=== PATIENT | female | born 1955 | race Caucasian/White ===

== ENCOUNTER 2021-12-03 14:45 | Inpatient (IN) ==
[2021-12-03] MEDS ORDERED: LORazepam 2 MG in SYRINGE 1 ML IV PRN (15:40)
[2021-12-03] MEDS ORDERED: LORazepam 3 MG in SYRINGE 1.5 ML IV PRN (15:40)
[2021-12-03] MEDS ORDERED: LORazepam 1 MG in SYRINGE 0.5 ML IV PRN (15:40)
[2021-12-03] MEDS ORDERED: Ativan IV Alcohol Withdrawal--Active Protocol IV PRN (15:40)
[2021-12-03] MEDS ORDERED: MULTI-VITAMIN INFUSION 10 ML, THIAMINE HCL 100 MG, FOLIC ACID 1 MG in SODIUM CHLORIDE 0... IV ONE (15:42)
[2021-12-03] MEDS ORDERED: THIAMINE HCL 200 MG in SODIUM CHLORIDE 0.9% 50 ML IV STA (15:42)
--- NOTE | 2021-12-03 15:54 | XRay Report ---
XR chest 1V portable HISTORY: 66 years-old Female weakness acute left-sided shoulder and chest pain COMPARISON: Left shoulder radiographs 09/16/2021 TECHNIQUE: Portable AP view of the chest FINDINGS: Cardiac mediastinal and hilar silhouettes are within normal limits. No pneumothorax, pleural effusion , airspace consolidation or overt pulmonary edema. Degenerative changes of the shoulders and spine. IMPRESSION: No acute process. ACT 112: Negative or not required by law. The above report was generated using voice recognition software. It may contain grammatical, syntax o r spelling errors. Electronically signed by: Donald Roberson M.D. 12/03/2021 3:53 PM
--- NOTE | 2021-12-03 16:30 | History & Physical Report ---
Date of Service December 03, 2021 Assessment & Plan (1) Alcohol withdrawal: Plan: Last drink on morning of admission. Ethyl alcohol < 10 mg/dL Prior history of alcohol withdrawal seizures Lorazepam 1-3 mg IV per AWSS Thiamine 200mg IV daily folate 1mg PO daily (2) Hypertension: Plan: Will hold off amlodipine as not clear she is taking this. Monitor BP off meds (3) Anxiety: Plan: Suspect chronic from alcohol use and likely self medicating with alcohol Recently on paroxetine but ran out last week therefore some worsening anxiety likely from withdrawal Consider psych consult once stable from alcohol withdrawal stand point to consider re-introduction of SSRI/buspirone Plan VTE Prophylaxis - Lovenox 40mg SQ daily Diet - regular Disposition - admit to PCU (due to early stages of alcohol withdrawal and history of alcohol withdrawal seizures) Admission and Anticipated Discharge Date Admission Date: December 03, 2021 History of Present Illness Chief Complaint: Alcohol withdrawal Primary Care Provider: Domingo Alberto Ofe Hinkle is a 66 year old female who presents to the ER with concerns for alcohol withdrawal. She is in the ER with her father, however the patient provides the majority of the history. She reports drinking 9 beers a day but feels her anxiety and drinking has now got to a point she needs help. She has a long history of alcohol use disorder over decades. Previously been in inpatient rehabilitation twice in [place].Multiple previous hospitalizations for alcohol withdrawal but has also gone through it herself at home. Most recent alcohol withdrawal was in hospital at the end of February. Previous alcohol withdrawal seizures in 2020. Her last year and she moved from [place] back to [place] in April this year to be closer to the rest of her family. She has struggled with increased depression and anxiety since the of her . She has been going to [facility] for psychiatric care and most recently started on paroxetine. She reports not telling her psychiatrist about her alcohol use. She ran out of paroxetine a week ago and has noticed sudden worsening of anxiety since then. She is taking buspirone and hydroxyzine for anxiety and notes taking more than her prescribed twice a day. Her last alcoholic drink was this morning and she already feels she is going through alcohol withdrawal. She is having tremors, increased anxiety, agitation, diaphoresis and diarrhea. Objectively she has hypertension and tachycardia. She denies any confusion, palpitations or fever. In the ER she was given 3mg lorazepam IV and referred to medicine for admission and ongoing management of alcohol withdrawal. Home Medications Medication Instructions Recorded Confirmed Type amlodipine 10 mg tablet 10 mg PO QAM 12/03/21 12/03/21 History buspirone 15 mg tablet 15 mg PO BID 12/03/21 12/03/21 History hydroxyzine HCl 25 mg tablet 25 mg PO BID 12/03/21 12/03/21 History paroxetine HCl 20 mg tablet 20 mg PO HS 12/03/21 12/03/21 History Past Med/Surg History Medical History (Updated 12/03/21 @ 18:12 by Nakul Horner MD) Anxiety Hypertension Social History Smoking Status: Current every day smoker Tobacco Type: Cigarettes Cigarettes Per Day: 5-6; Tobacco Cessation Education Requested by Patient: No Hx Alcohol Use: Yes Alcohol type: beer and wine Hx Substance Use: No Preferred Language: Occitan Communication Ability: Effective Forex Trader Required: No Beliefs That Will Affect Care: None Current Living Situation: Alone Other Information That Helps Us Care for You: No Feels Safe at Home: Yes Safety Concerns: Feels Safe At This Time Assistive Devices: Glasses Review of Systems Review of Systems: All systems reviewed & are unremarkable except as noted in HPI & below Physical Exam Constitutional: WD/WN, vitals as above + frail appearing Eyes: PERRL, conjunctivae normal, anicteric sclerae EOM intact bilaterally ENMT: Mouth: + dry oral mucous membranes Neck: trachea midline, no thyromegaly Respiratory: normal respiratory effort, lungs clear to auscultation Cardiovascular: Rate/Rhythm: regular rhythm and + tachycardic Heart Sounds: no murmur Extremities: normal capillary refill; no calf tenderness and no pedal edema Gastrointestinal (Abdomen): normal bowel sounds, soft, nontender, no hepatosplenomegaly Musculoskeletal: no cyanosis or clubbing, extremities motor strength 5/5 Skin: no rashes, warm and dry Neurologic: moves all extremities and awake; no focal motor deficits and not confused Motor/Sensory: + tremor (b/l) Psychiatric: Orientation: alert and oriented x 3 Affect: + anxious affect Mood: + anxious mood Results & Data Results & Data ([facility]) Vital Signs (Past 12 Hours) Vital Signs Temp Pulse Resp BP Pulse Ox O2 Del Method 12/03/21 14:58 36.8 C 137 H 18 153/90 H 98 Room Air Laboratory Results Abnormal lab results 12/03/21 12/03/21 12/03/21 Range/Units 16:00 17:45 17:50 RBC 3.92 L (3.93-5.22) M/uL MPV 8.7 L (9.4-12.3) fL Immature Gran # (Auto) 0.03 H (0.00-0.02) K/uL Anion Gap 13 H (3-11) Glucose 116 H (70-99(Fasting)) mg/dl Urine Appearance Cloudy A (Clear) Urine Ketones 1+ H (Negative) Ur Leukocyte Esterase 1+ H (Negative) Urine WBC (Auto) 5-10 H (0-5) /hpf U Hyaline Cast (Auto) 5-10 H (0-5) /lpf U Epithel Cells (Auto) >30 H (0-5) /lpf Diagnostic Findings XR chest 1V portable HISTORY: 66 years-old Female weakness acute left-sided shoulder and chest pain COMPARISON: Left shoulder radiographs 09/16/2021 TECHNIQUE: Portable AP view of the chest FINDINGS: Cardiac mediastinal and hilar silhouettes are within normal limits. No pn eumothorax, pleural effusion, airspace consolidation or overt pulmonary edema. Degenerative changes of the shoulders and spine. IMPRESSION: No acute process. Medications Administered ER Medications Given: Banana bag 1L bolus Lorazepam 3mg IV Thiamine 200mg IV ECG Indication: altered mental status Rate (beats per minute): 104 Rhythm: sinus tachycardia Findings: + PVC Comparison ECG Date: no prior available Code Status & VTE Plan Code Status Full VTE Prophylaxis Plan VTE Prophylaxis will be ordered: Yes PG Care Time/CCT Total # of Minutes Spent Total Time Spent with Patient: Total time spent is greater than 50% in coordination of care (as documented) at patient's floor/unit and/or counseling patient: Coding Level of Care Code 07300 Initial Inpt Care Lvl 3 Diagnoses Alcohol withdrawal F10.939 Hypertension I10 Anxiety F41.9
[2021-12-03 16:33] LABS: Prothrombin Time 10.3 Seconds (9.0-12.0)
[2021-12-03 16:42] LABS: Albumin Globulin Ratio 1.5 (0.9-2); Albumin Level 4.5 gm/dl (3.4-5.0); BUN Creatinine Ratio 14.8 (10-20); Bilirubin,Total 0.5 mg/dl (0.2-1.0); Calcium 9.9 mg/dl (8.5-10.1); Creatinine Clr Calc Pharmacy 52.4 ml/min; Est GFR (African American) 79.9 ml/min; Est GFR (Non-African American) 68.9 ml/min; Globulin 3.1 gm/dl (2.5-4.0); Magnesium 1.7 mg/dl (1.7-2.4); Phosphorus 2.8 mg/dl (2.5-4.9); Potassium 3.6 mmol/L (3.5-5.1); Total Protein 7.6 gm/dl (6.0-8.3)
[2021-12-03] MEDS ORDERED: LORazepam 2 MG/2 ML SYR ONE (16:42)
[2021-12-03 18:28] LABS: Appearance Urine Cloudy (Clear); Bacteria Urine Automated Negative (Negative); Bilirubin Urine Negative (Negative); Blood Urine Negative (Negative); Color Urine Yellow; Epithelial Cell Urine Auto >30 /lpf (0-5); Glucose Urine UA Negative (Negative); Ketones Urine 1+ (Negative); Leukocyte Esterase Urine 1+ (Negative); Nitrite Urine Negative (Negative); Protein Urine Negative (Negative); RBC Urine Automated 0-4 /hpf (0-4); Specific Gravity Urine 1.014 (1.000-1.030); Urobilinogen Urine Negative (Negative)
[2021-12-03] MEDS ORDERED: Ativan PO Alcohol Withdrawal--Active Protocol PO PRN (18:38)
[2021-12-03] MEDS ORDERED: THIAMINE HCL 100 MG in SYRINGE 9 ML IV SCH (18:38)
[2021-12-03] MEDS ORDERED: LORazepam 1 MG TAB PO PRN ×3 (18:38)
[2021-12-03 19:13] LABS: Basophils # (auto) 0.04 K/uL (0-0.2); Basophils % (auto) 0.5 %; Eosinophils # (auto) 0.11 K/uL (0-0.50); Eosinophils % (auto) 1.5 %; Hematocrit (blood only) 37.4 % (34.1-44.9); Hemoglobin 12.8 g/dl (12.0-16.0); Immature Granulocytes # (auto) 0.03 K/uL (0.00-0.02); Immature Granulocytes % (auto) 0.4 %; Lymphocytes # (auto) 1.72 K/uL (1.2-3.4); Lymphocytes % (auto) 23.2 %; Mean Corpuscular Hemoglobin 32.7 pg (25.0-34.0); Mean Corpuscular Hgb Conc 34.2 g/dL (32.0-36.0); Mean Corpuscular Volume 95.4 fL (80.0-100.0); Mean Platelet Volume 8.7 fL (9.4-12.3); Monocytes # (auto) 0.71 K/uL (0.24-0.82); Monocytes % (auto) 9.6 %; Neutrophils # (auto) 4.81 K/uL (1.4-6.5); Neutrophils % (auto) 64.8 %; Platelet Count 234 K/uL (130-400); RDW Coefficient of Variation 12.4 % (11.5-14.5); Red Blood Count 3.92 M/uL (3.93-5.22); White Blood Count 7.42 K/ul (4.8-10.8)
[2021-12-03] MEDS ORDERED: chlordiazePOXIDE ALCOHOL WITHDRAWL 25MG PO STA (21:04)
[2021-12-03] MEDS: chlordiazePOXIDE HCl 25 MG CAP PO SCH (21:53)
--- NOTE | 2021-12-04 03:07 | Emergency Department Note ---
Impression & Plan Alcohol withdrawal delirium, Sinus tachycardia, Alcohol dependence ED Provider Note NAME: SHEREE PAREKH AGE: 66 SEX: F ARRIVES VIA: Walk-In INFORMANT: Patient ED PROVIDER(S): Felix Bustillos MD CHIEF COMPLAINT: Alcohol withdrawal. PLAN: Disposition: Admit MEDICAL DECISION MAKING: The patient is a 66-year-old woman with a past medical history of anxiety, hypertension, alcohol dependence/abuse with history of withdrawal who presents to the emergency department accompanied by her father for evaluation of alcohol withdrawal with her last drink being this morning. She reports she drinks 9 beers a day and has abstained in the past but resumed drinking. She has realized that she needs to quit and therefore presents for detox. She denies SI, hallucinations, drug use. Denies any recent cough, congestion, chest pain or shortness of breath. On arrival the patient has restless/anxious appearing with heart rate in the 130s and vital signs otherwise stable. She appears clinically dry. She is moderately tremulous and diaphoretic consistent with alcohol withdrawal syndrome. EKG without overt acute ischemia. CXR negative for acute cardiopulmonary process. WBC, H/H and platelets within normal limits. Chemistry without metabolic acidosis. Electrolytes and LFTs without significant abnormality. TSH within normal limits. UA without convincing evidence of infection. Medical alcohol was undetectable. COVID-19 RNA, ASHLEY test was negative. Patient has been ordered for IV hydration with banana bag as well as thiamine supplementation and AWSS where she had scored 10+ and had received PRN IV ativan. Dr. Horner [facility] hospitalist to evaluate the patient for admission. Triage Nursing notes reviewed and agree them. Prior medical records reviewed Vital Signs: reviewed and remarkable for tachycardia. Differential diagnosis: Overdose, toxicologic, infection, hypoglycemia, electrolyte abnormalities, cardiac sources, intracerebral event, neurologic, trauma, as well as other pathologies. ER treatment provided: See below. Diagnostics interpreted by me: ECG: Sinus tachycardia, 104 bpm, occasional PVCs, no overt ST elevation or depression, QTC 473, QRS 84. Cardiac Monitoring: An order for continuous cardiac monitoring was placed and demonstrated Sinus tachycardia, 104 bpm, occasional PVCs Laboratory studies: See below Imaging studies: See below Consultation(s): JEANNETTE Balderas hospitalist. HPI: The patient is a 66-year-old woman with a past medical history of anxiety, hypertension, alcohol dependence/abuse with history of withdrawal who presents to the emergency department accompanied by her father for evaluation of alcohol withdrawal with her last drink being this morning. She reports she drinks 9 beers a day and has abstained in the past but resumed drinking. She has realized that she needs to quit and therefore presents for detox. She denies SI, hallucinations, drug use. Denies any recent cough, congestion, chest pain or shortness of breath. ROS: See above HPI for pertinent positives & negatives. A total of 10 systems reviewed and were otherwise negative. VITALS:See Below PHYSICAL EXAMINATION: GENERAL: Awake, alert, anxious/restless-appearing, in no distress HENT: Normocephalic, atraumatic. Oropharynx with dry mucous membranes and otherwise unremarkable. EYES: Normal conjunctiva. Sclera non-icteric. EOMI. No nystamgus. PEARRL. NECK: Supple. No nuchal rigidity. FROM. No JVD. RESPIRATORY: Clear to auscultation. CARDIAC: Tachycardic rate, normal rhythm. Extremities warm and well perfused. Pulses equal. ABDOMEN: Soft, non-distended. No tenderness to palpation. No rebound or guarding. No masses. RECTAL: Deferred. MUSCULOSKELETAL: Chest examination reveals no tenderness. The back is symmetrical on inspection without obvious abnormality. There is no CVA tenderness to palpation. No joint edema. LOWER EXTREMITIES: Calves are equal size bilaterally and non-tender. No edema. No discoloration. NEURO: No focal sensory or motor deficits noted. Moderately tremulous. 5/5 strength and SILT x 4 extremities. SKIN: Mildly diaphoretic. No rash or jaundice noted. ED COURSE: Critical Care: I have personally spent greater than 35 minutes of critical care time in the direct management of this patient. This includes bedside care, interpretation of diagnostic studies, and testing, discussion with consultants, patient, and fa fernando members, and other required patient management activities. This 35 minutes is in excess of all separately billable procedures. Felix Bustillos MD Past Med/Surg History Medical History Alcohol dependence Alcohol withdrawal Anxiety Hypertension Family History Other Family history non-contributory Social History Smoking Status: Current every day smoker Tobacco Type: Cigarettes Cigarettes Per Day: 5-6; Tobacco Cessation Education Requested by Patient: No Hx Alcohol Use: Yes Alcohol type: beer and wine Hx Substance Use: No Preferred Language: Hebrew Communication Ability: Effective Sealer Sander Required: No Beliefs That Will Affect Care: None Current Living Situation: Alone Other Information That Helps Us Care for You: No Feels Safe at Home: Yes Safety Concerns: Feels Safe At This Time Assistive Devices: Glasses Home Meds Home Medications Medication Instructions Recorded Confirmed amlodipine 10 mg tablet 10 mg PO QAM 12/03/21 12/03/21 buspirone 15 mg tablet 15 mg PO BID 12/03/21 12/03/21 hydroxyzine HCl 25 mg tablet 25 mg PO BID 12/03/21 12/03/21 paroxetine HCl 20 mg tablet 20 mg PO HS 12/03/21 12/03/21 Results & Data (ED) Vital Signs Vital Signs - 24 hr 12/03/21 14:58 12/03/21 15:13 12/03/21 16:00 Temperature 36.8 C Temperature Source Temporal Artery Scan Pulse Rate 137 H Pulse Rate from SpO2 Sensor Respiratory Rate 18 Blood Pressure 153/90 H 151/87 H Blood Pressure Mean 111 108 Pulse Oximetry 98 Oxygen Delivery Method Room Air Room Air Sepsis Recent Fever Within 48 Hours No Sepsis New/Unexplained Change in Mental Status No Sepsis Action Taken by Nursing No Action Required 12/03/21 16:01 12/03/21 16:15 12/03/21 16:15 Temperature Temperature Source Pulse Rate 106 H 106 H Pulse Rate from SpO2 Sensor 107 H 105 H Respiratory Rate 13 17 Blood Pressure 175/84 H Blood Pressure Mean 114 Pulse Oximetry 99 95 Oxygen Delivery Method Sepsis Recent Fever Within 48 Hours Sepsis New/Unexplained Change in Mental Status Sepsis Action Taken by Nursing 12/03/21 16:30 12/03/21 16:30 12/03/21 16:45 Temperature Temperature Source Pulse Rate 100 H Pulse Rate from SpO2 Sensor 100 H Respiratory Rate 17 Blood Pressure 154/76 H 165/85 H Blood Pressure Mean 102 111 Pulse Oximetry 97 Oxygen Delivery Method Sepsis Recent Fever Within 48 Hours Sepsis New/Unexplained Change in Mental Status Sepsis Action Taken by Nursing 12/03/21 16:45 12/03/21 17:00 12/03/21 17:00 Temperature Temperature Source Pulse Rate 115 H 105 H Pulse Rate from SpO2 Sensor 115 H 105 H Respiratory Rate 16 17 Blood Pressure 138/85 Blood Pressure Mean 102 Pulse Oximetry 98 98 Oxygen Delivery Method Sepsis Recent Fever Within 48 Hours Sepsis New/Unexplained Change in Mental Status Sepsis Action Taken by Nursing 12/03/21 16:30 12/03/21 17:15 12/03/21 17:15 Temperature 36.8 C Temperature Source Oral Pulse Rate 97 H Pulse Rate from SpO2 Sensor 98 H Respiratory Rate 24 Blood Pressure 141/72 H Blood Pressure Mean 95 Pulse Oximetry 96 Oxygen Delivery Method Sepsis Recent Fever Within 48 Hours Sepsis New/Unexplained Change in Mental Status Sepsis Action Taken by Nursing 12/03/21 16:45 12/03/21 17:00 Temperature 36.9 C 36.9 C Temperature Source Oral Oral Pulse Rate Pulse Rate from SpO2 Sensor Respiratory Rate Blood Pressure Blood Pressure Mean Pulse Oximetry Oxygen Delivery Method Sepsis Recent Fever Within 48 Hours Sepsis New/Unexplained Change in Mental Status Sepsis Action Taken by Nursing Laboratory Data Attestation: I reviewed the patient's lab results. Result diagrams: 12/03/21 17:45 12/03/21 16:00 Lab Results 12/03/21 12/03/21 12/03/21 Range/Units 16:00 16:00 16:00 WBC Cancelled RBC Cancelled Hgb Cancelled Hct Cancelled MCV Cancelled MCH Cancelled MCHC Cancelled RDW Std Deviation Cancelled RDW Coeff of Vignesh Cancelled Plt Count Cancelled MPV Cancelled Immature Gran % (Auto) Cancelled Neut % (Auto) Cancelled Lymph % (Auto) Cancelled Craig % (Auto) Cancelled Eos % (Auto) Cancelled Baso % (Auto) Cancelled Neut # (Auto) Cancelled Lymph # (Auto) Cancelled Craig # (Auto) Cancelled Eos # (Auto) Cancelled Baso # (Auto) Cancelled Immature Gran # (Auto) Cancelled Absolute Nucleated RBC Cancelled Nucleated RBC % (auto) Cancelled Neutrophils % (Manual) Cancelled Band Neutrophils % Cancelled Lymphocytes % (Manual) Cancelled Prolymphocyte % Cancelled Reactive Lymphs % (Man) Cancelled Monocytes % (Manual) Cancelled Eosinophils % (Manual) Cancelled Basophils % (Manual) Cancelled Metamyelocytes % (Man) Cancelled Myelocytes % (Man) Cancelled Promyelocytes % (Man) Cancelled Blast Cells % (Manual) Cancelled Plasma Cell % (Manual) Cancelled Other Cells % Cancelled Nucleated RBC % Cancelled Neutrophils # (Manual) Cancelled Band Neutrophils # Cancelled Total Absolute Neuts Cancelled Lymphocytes # (Manual) Cancelled Prolymphocyte # Cancelled Reactive Lymphs # Cancelled Total Abs Lymphocytes Cancelled Monocytes # (Manual) Cancelled Eosinophils # (Manual) Cancelled Basophils # (Manual) Cancelled Metamyelocytes # (Man) Cancelled Myelocytes # (Manual) Cancelled Promyelocytes # (Man) Cancelled Blast Cells # (Man) Cancelled Plasma Cell # (Manual) Cancelled Other Cells # Cancelled Nucleated RBCs # (Man) Cancelled Hypersegmented Neuts Cancelled Hyposegmented Neuts Cancelled Hypogranular Neuts Cancelled Large Granular Lymphs Cancelled # Lrg Granular Lymphs Cancelled Hairy Cells Cancelled Smudge Cells Cancelled Toxic Granulation Cancelled Toxic Vacuolation Cancelled Dohle Bodies Cancelled Karyn Rods Cancelled Platelet Estimate Cancelled Hypogranular Platelets Cancelled Clumped Platelets Cancelled Giant Platelets Cancelled Platelet Satelliting Cancelled RBC Morphology Cancelled Polychromasia Cancelled Hypochromasia Cancelled Poikilocytosis Cancelled Basophilic Stippling Cancelled Anisocytosis Cancelled Microcytosis Cancelled Macrocytosis Cancelled Spherocytes Cancelled Pappenheimer Bodies Cancelled Sickle Cells Cancelled Target Cells Cancelled Tear Drop Cells Cancelled Ovalocytes Cancelled Stomatocytes Cancelled Bailey-Macarthur Bodies Cancelled Echinocytes Cancelled Acanthocytes (Spur) Cancelled Rouleaux Cancelled RBC Agglutinates Cancelled Schistocytes Cancelled Sezary Cell Cancelled PT 10.3 (9.0-12.0) Seconds INR 1.0 (0.9-1.1) Sodium 137 (136-145) mmol/L Potassium 3.6 (3.5-5.1) mmol/L Chloride 99 (98-107) mmol/L Carbon Dioxide 25 (21-32) mmol/L Anion Gap 13 H (3-11) BUN 13 (6-23) mg/dl Creatinine 0.88 (0.6-1.2) mg/dl Est Cr Clr Drug Dosing 52.4 ml/min Est GFR ( Amer) 79.9 ml/min Est GFR (Non-Af Amer) 68.9 ml/min BUN/Creatinine Ratio 14.8 (10-20) Glucose 116 H (70-99(Fasting)) mg/dl Calcium 9.9 (8.5-10.1) mg/dl Phosphorus 2.8 (2.5-4.9) mg/dl Magnesium 1.7 (1.7-2.4) mg/dl Total Bilirubin 0.5 (0.2-1.0) mg/dl AST 24 (13-39) U/L ALT 15 (7-52) U/L Alkaline Phosphatase 95 (34-104) U/L Total Protein 7.6 (6.0-8.3) gm/dl Albumin 4.5 (3.4-5.0) gm/dl Globulin 3.1 (2.5-4.0) gm/dl Albumin/Globulin Ratio 1.5 (0.9-2) TSH (0.300-4.500) uIu/ml Ethyl Alcohol mg/dL (<10.0) mg/dl SARS-CoV-2, RNA, NAAT (NEGATIVE) Blood Parasites ID Cancelled 12/03/21 12/03/21 12/03/21 Range/Units 16:00 16:00 16:00 WBC RBC Hgb Hct MCV MCH MCHC RDW Std Deviation RDW Coeff of Vignesh Plt Count MPV Immature Gran % (Auto) Neut % (Auto) Lymph % (Auto) Craig % (Auto) Eos % (Auto) Baso % (Auto) Neut # (Auto) Lymph # (Auto) Craig # (Auto) Eos # (Auto) Baso # (Auto) Immature Gran # (Auto) Absolute Nucleated RBC Nucleated RBC % (auto) Neutrophils % (Manual) Band Neutrophils % Lymphocytes % (Manual) Prolymphocyte % Reactive Lymphs % (Man) Monocytes % (Manual) Eosinophils % (Manual) Basophils % (Manual) Metamyelocytes % (Man) Myelocytes % (Man) Promyelocytes % (Man) Blast Cells % (Manual) Plasma Cell % (Manual) Other Cells % Nucleated RBC % Neutrophils # (Manual) Band Neutrophils # Total Absolute Neuts Lymphocytes # (Manual) Prolymphocyte # Reactive Lymphs # Total Abs Lymphocytes Monocytes # (Manual) Eosinophils # (Manual) Basophils # (Manual) Metamyelocytes # (Man) Myelocytes # (Manual) Promyelocytes # (Man) Blast Cells # (Man) Plasma Cell # (Manual) Other Cells # Nucleated RBCs # (Man) Hypersegmented Neuts Hyposegmented Neuts Hypogranular Neuts Large Granular Lymphs # Lrg Granular Lymphs Hairy Cells Smudge Cells Toxic Granulation Toxic Vacuolation Dohle Bodies Karyn Rods Platelet Estimate Hypogranular Platelets Clumped Platelets Giant Platelets Platelet Satelliting RBC Morphology Polychromasia Hypochromasia Poikilocytosis Basophilic Stippling Anisocytosis Microcytosis Macrocytosis Spherocytes Pappenheimer Bodies Sickle Cells Target Cells Tear Drop Cells Ovalocytes Stomatocytes Bailey-Macarthur Bodies Echinocytes Acanthocytes (Spur) Rouleaux RBC Agglutinates Schistocytes Sezary Cell PT (9.0-12.0) Seconds INR (0.9-1.1) Sodium (136-145) mmol/L Potassium (3.5-5.1) mmol/L Chloride (98-107) mmol/L Carbon Dioxide (21-32) mmol/L Anion Gap (3-11) BUN (6-23) mg/dl Creatinine (0.6-1.2) mg/dl Est Cr Clr Drug Dosing ml/min Est GFR ( Amer) ml/min Est GFR (Non-Af Amer) ml/min BUN/Creatinine Ratio (10-20) Glucose (70-99(Fasting)) mg/dl Calcium (8.5-10.1) mg/dl Phosphorus (2.5-4.9) mg/dl Magnesium (1.7-2.4) mg/dl Total Bilirubin (0.2-1.0) mg/dl AST (13-39) U/L ALT (7-52) U/L Alkaline Phosphatase (34-104) U/L Total Protein (6.0-8.3) gm/dl Albumin (3.4-5.0) gm/dl Globulin (2.5-4.0) gm/dl Albumin/Globulin Ratio (0.9-2) TSH 2.275 (0.300-4.500) uIu/ml Ethyl Alcohol mg/dL < 10.0 (<10.0) mg/dl SARS-CoV-2, RNA, NAAT NEGATIVE (NEGATIVE) Blood Parasites ID Administered Medications Chlordiazepoxide HCl (Chlordiazepoxide Hcl 25 Mg Cap) 50 mg PO Q6H HUEY; Taper Stop: 12/05/21 21:14 Last Admin: 12/03/21 21:53 Dose: 50 mg Documented By: DAMEON Discontinued Medications Lorazepam 3 mg/ Syringe 3 mls @ 2 mls/min IV ONCE PRN; Protocol PRN Reason: EtOH Withdrawal AWSS Score 10 & above Last Admin: 12/03/21 16:45 Dose: 2 mls/min Documented By: ROBBY Multivitamins 10 ml/ Thiamine HCl 100 mg/ Folic Acid 1 mg/Sodium Chloride 1,011.2 mls @ 1,011.2 mls/hr IV .Q1H ONE Stop: 12/03/21 16:41 Last Infusion: 12/03/21 21:27 Dose: 0 mls/hr Documented By: Admin: 12/03/21 16:38 Dose: 1,011.2 mls/hr Documented By: ROBBY Thiamine HCl 200 mg/ Sodium (Chloride) 52 mls @ 208 mls/hr IV NOW STA Stop: 12/03/21 15:43 Last Infusion: 12/03/21 16:53 Dose: 0 mls/hr Documented By: Admin: 12/03/21 16:38 Dose: 208 mls/hr Documented By: ROBBY Lorazepam (Lorazepam 2 Mg/1 Ml Vial) Confirm Administered Dose 3 mg .ROUTE .STK- MED ONE Stop: 12/03/21 16:43 Last Admin: 12/03/21 17:32 Dose: Not Given Documented By: ROBBY Lorazepam (Lorazepam 1 Mg Tab) 3 mg PO ONCE PRN; Protocol PRN Reason: EtOH Withdrawal AWSS Score 10 & above Last Admin: 12/03/21 19:26 Dose: 3 mg Documented By: DAMEON Imaging Data Radiologist's Impression: Chest X-Ray 12/03/21 15:42 XR chest 1V portable HISTORY: 66 years-old Female weakness acute left-sided shoulder and chest pain COMPARISON: Left shoulder radiographs 09/16/2021 TECHNIQUE: Portable AP view of the chest FINDINGS: Cardiac mediastinal and hilar silhouettes are within normal limits. No pneumothorax, pleural effusion, airspace consolidation or overt pulmonary edema. Degenerative changes of the shoulders and spine. IMPRESSION: No acute process. ACT 112: Negative or not required by law. The above report was generated using voice recognition software. It may contain grammatical, syntax or spelling errors. Electronically signed by: Donald Roberson M.D. 12/03/2021 3:53 PM Discharge Plan Visit Data Chief Complaint: Alcohol Withdrawal Stated Complaint: DETOX ED Provider: Felix Bustillos Discharge Problem: Alcohol withdrawal delirium, Sinus tachycardia, Alcohol dependence Patient Disposition: Admitted As Inpatient Discharge Instructions Interventions: ED Discharge Assessment Last Done: 12/03/21 18:12
[2021-12-04] MEDS: chlordiazePOXIDE HCl 25 MG CAP PO SCH ×4 (03:10→23:07)
--- NOTE | 2021-12-04 08:13 | Electrocardiogram Report ---
Test Reason : Blood Pressure : / mmHG Vent. Rate : 104 BPM Atrial Rate : 104 BPM P-R Int : 122 ms QRS Dur : 084 ms QT Int : 360 ms P-R-T Axes : 073 039 045 degrees QTc Int : 473 ms Poor data quality, interpretation may be adversely affected Sinus tachycardia with occasional Premature ventricular complexes Left atrial enlargement Poor R wave progression, consider anterior AL vs. lead placement vs. LVH Abnormal ECG No previous ECGs available Confirmed by Ronan Villalta ([id number]) on 12/04/2021 8:12:46 AM Referred By: REFERRED SELF Confirmed By:Ronan Villalta
[2021-12-04] MEDS: THIAMINE HCL 200 MG in SODIUM CHLORIDE 0.9% 50 ML IV SCH (08:16)
[2021-12-04 09:47] LABS: Amphetamines+Metham, Urine Neg (Neg); Barbiturates, Urine Neg (Neg); Benzodiazepine, Urine Pos (Neg); Cocaine, Urine Neg (Neg); MDMA (Ecstacy), Urine Neg (Neg); Methadone, Urine Neg (Neg); Opiate, Urine Neg (Neg); Phencyclidine, Urine Neg (Neg)
[2021-12-04] MEDS ORDERED: Ativan IV Alcohol Withdrawal--Active Protocol IV PRN (11:59)
[2021-12-04] MEDS ORDERED: LORazepam 2 MG in SYRINGE 1 ML IV PRN (11:59)
[2021-12-04] MEDS ORDERED: LORazepam 3 MG in SYRINGE 1.5 ML IV PRN (11:59)
--- NOTE | 2021-12-04 12:56 | Medical Student Progress Note ---
Date of Service December 04, 2021 Assessment & Plan (1) Alcohol withdrawal: Plan Ofe is a 66 yo female with past medical hx of anxiety, depression, HTN & alcohol use disorder with a hx of alcohol withdrawal seizures who was admitted last night for alcohol detox. (1) Alcohol withdrawal -cont Librium 50mg q6 until tomorrow evening, then taper down to 10mg q8 -Ativan 1-3 mg IV prn, need to maintain IV access given hx of withdrawal seizures -Thiamine 200mg IV daily -Folate 1mg PO daily (2) HTN -holding amlodipine (in previous med record but unsure if she has been taking it) -monitor vitals while off med to assess need for reintroduction (3) Anxiety -Likely using alcohol as coping mechanisms for chronic anxiety -psych consult once alcohol withdrawal stable. Pt expressed interest in 1v1 grief counseling, suggested setting up with PCP after discharge. -consider reintroducing SSRI (paroxetine) and/or buspirone Normal diet. Full code. Lovenox 40mg SQ qd. PCU. Admission and Anticipated Discharge Date Admission Date: December 03, 2021 Subjective Ofe is a 66 yo female with past medical hx of anxiety, depression, HTN & alcohol use disorder with a hx of alcohol withdrawal seizures who was admitted last night for alcohol detox. Last drink was morning of 12/03. Reports drinking 9 beers/day. Pt reports having a long hx of alcohol use disorder over several decades. She has done inpatient rehab twice in [place] where she previously lived with her who last year. Anxiety/depression increased with loss of her , so she moved back to [place] to be closer to family. Pts last alcohol withdrawal was February 2021 (hospitalized) and she had seizures. Pt has been receiving psychiatric care at [facility], but has not admitted alcohol use to psychiatrist. For psychiatric meds, pt takes buspirone and hydroxyzine (pt admits to taking more t henriquez prescribed dose), as well as paroxetine which she ran out of last week. This caused increased anxiety. +tremors, anxiety, agitation, diaphoresis, diarrhea Denies confusion, palpitations, fevers In ED: CBC, CMP, TSH, UA, CXR, EKG done. Labs - overall unremarkable. CXR - no acute processes. EKG - sinus tachycardia and PVC but overall reassuring Review of Systems Review of Systems: All systems reviewed & are unremarkable except as noted in Subjective Physical Exam Constitutional: + in distress and + diaphoretic Eyes: EOM intact bilaterally and + nystagmus ENMT: moderately dry oral mucosa, cracked lips Neck: trachea midline, no thyromegaly Respiratory: normal respiratory effort, lungs clear to auscultation Cardiovascular: RRR, no murmur, no edema Gastrointestinal (Abdomen): normal bowel sounds, soft, nontender, no hepatosplenomegaly Musculoskeletal: no cyanosis or clubbing, extremities motor strength 5/5 Skin: No rashes Neurologic: A&Ox3 Results & Data ([facility]) Vital Signs (Past 12 Hours) Vital Signs Temp Pulse Pulse Pulse Resp BP Pulse Ox 12/04/21 12:16 36.6 C 94 H 19 138/67 98 12/04/21 08:00 95 H 12/04/21 08:07 36.5 C 89 18 130/54 L 93 12/04/21 03:07 36.6 C 78 17 124/64 100 O2 Del Method 12/04/21 12:16 Room Air 12/04/21 08:00 12/04/21 08:07 Room Air 12/04/21 03:07 Room Air
[2021-12-04] MEDS: PARoxetine HCL 10 MG TAB PO SCH (13:13)
[2021-12-04] MEDS: FOLIC ACID 1 MG TAB PO SCH (13:13)
--- NOTE | 2021-12-04 14:39 | Hospitalist Progress Note ---
Date of Service December 04, 2021 Assessment & Plan (1) Alcohol withdrawal: (2) Anxiety: (3) Hypertension: Plan Ofe is a 66 year old female with past medical history of anxiety, depression, alcohol dependence w/ hx of alcohol withdrawal seizures. Alcohol withdrawal/dependence: -Last drink morning of 12/03/21, drank 9 beers/day. -Alcohol level <10 on admission. -Prior history of alcohol w/drawal seizures, admitted to PCU. -Ordered Thiamine 200mg IV daily, Folate 1mg daily. -AWSS protocol, ativan 1-3mg; on Librium taper. -Continue to monitor for symptoms. Anxiety: -Patient in very anxious state since . -Sees [place] however may need adjustment. -Will continue paroxetine 20mg qHS -Patient will need close follow up outpatient and return to grief counseling. HTN: -BP WNL, no need for medication at this time. DVT Prophylaxis: SCDs F/E/N/GI: Regluar diet Code Status: Full code Dispo: PCU, upon discharge patient would benefit greatly from alcohol rehab, continued grief counseling, close follow up with psych and PCP. Admission and Anticipated Discharge Date Admission Date: December 03, 2021 Supervising Physician Co-Signing Physician Notes Resident Physician Supervision Note: I independently interviewed and examined the patient and verified the patton history and physical, reviewed labs and image studies and agree with resident findings and care plan. Subjective Patient seen at the bedside today saying that she feels very anxious. She has had tremors from the alcohol withdrawal and says that the tremors have improved overall but still present at times. She says her anxiety and depression as well as alcoholism got much worse after her . She says that she moved to [place] to be around her family and lives at the [facility]. She says people there are mostly 10-15 years older than her and they always pay close attention to who gets sent to the hospital in an ambulance and she is anxious about them talking about it. She helped a fellow resident in a wheelchair back in June and had a bout of shoulder pain as a result of it that she says has irritated her and caused pain ever since then. She saw Dr. Alberto in clinic for the pain where he prescribed Naproxen and physical therapy however she said that did not help very much with the pain. She said she wishes she would have gotten a steroid shot even when I explained to her the protocol and risks of steroids. She states the dose of her current paroxetine is very small compared to what she was previously on in [place] when she got out of the rehab for alcohol. She said at that time she was on a large dose of paxil - possibly around 80mg. She says she doesn't blame her psychiatrist for the way she feels since she thinks her medications are made less effective through her daily alcohol consumption. Review of Systems Review of Systems: as per hpi. Physical Exam Constitutional: WD/WN, vitals as above Eyes: PERRL, conjunctivae normal, anicteric sclerae Respiratory: normal respiratory effort, lungs clear to auscultation Cardiovascular: RRR, no murmur, no edema Gastrointestinal (Abdomen): normal bowel sounds, soft, nontender, no hepatosplenomegaly Psychiatric: Orientation: alert and oriented x 3 Apperance: appropriately groomed Eye Contact: good eye contact Motor Behavior: + tremor (mild) Affect: + tearful affect Mood: + anxious mood Suicidal Thoughts: denies suicidal thoughts Results & Data Results & Data ([facility]) Vital Signs (Past 12 Hours) Vital Signs Temp Pulse Pulse Pulse Resp BP Pulse Ox 12/04/21 12:16 36.6 C 94 H 19 138/67 98 12/04/21 08:00 95 H 12/04/21 08:07 36.5 C 89 18 130/54 L 93 12/04/21 03:07 36.6 C 78 17 124/64 100 O2 Del Method 12/04/21 12:16 Room Air 12/04/21 08:00 12/04/21 08:07 Room Air 12/04/21 03:07 Room Air Resident Activity Tracking Resident Involvement: Resident Care Provided Care Provided: Adult Hospital Medicine
[2021-12-04] MEDS: LORazepam 1 MG in SYRINGE 0.5 ML IV PRN ×3 (16:04→20:39)
[2021-12-04] MEDS: NICOTINE 21 MG/24 HR TDSY TD SCH (20:28)
[2021-12-05 06:30] LABS: Basophils # (auto) 0.03 K/uL (0-0.2); Basophils % (auto) 0.7 %; Eosinophils # (auto) 0.14 K/uL (0-0.50); Eosinophils % (auto) 3.3 %; Hematocrit (blood only) 35.7 % (34.1-44.9); Hemoglobin 12.6 g/dl (12.0-16.0); Immature Granulocytes # (auto) 0.01 K/uL (0.00-0.02); Immature Granulocytes % (auto) 0.2 %; Lymphocytes # (auto) 1.61 K/uL (1.2-3.4); Lymphocytes % (auto) 38.5 %; Mean Corpuscular Hemoglobin 32.9 pg (25.0-34.0); Mean Corpuscular Hgb Conc 35.3 g/dL (32.0-36.0); Mean Corpuscular Volume 93.2 fL (80.0-100.0); Mean Platelet Volume 8.8 fL (9.4-12.3); Monocytes # (auto) 0.45 K/uL (0.24-0.82); Monocytes % (auto) 10.8 %; Neutrophils # (auto) 1.94 K/uL (1.4-6.5); Neutrophils % (auto) 46.5 %; Platelet Count 250 K/uL (130-400); RDW Coefficient of Variation 12.1 % (11.5-14.5); RDW Standard Deviation 41.8 fL (36.4-46.3); Red Blood Count 3.83 M/uL (3.93-5.22); White Blood Count 4.18 K/ul (4.8-10.8)
[2021-12-05] MEDS: chlordiazePOXIDE HCl 25 MG CAP PO SCH ×2 (06:44→12:26)
[2021-12-05 06:50] LABS: BUN Creatinine Ratio 22.6 (10-20); Calcium 8.8 mg/dl (8.5-10.1); Creatinine Clr Calc Pharmacy 74.8 ml/min; Est GFR (African American) 109.7 ml/min; Est GFR (Non-African American) 94.6 ml/min; Potassium 3.2 mmol/L (3.5-5.1)
[2021-12-05] MEDS: FOLIC ACID 1 MG TAB PO SCH (08:12)
[2021-12-05] MEDS: NICOTINE 21 MG/24 HR TDSY TD SCH (08:13)
[2021-12-05] MEDS: THIAMINE HCL 200 MG in SODIUM CHLORIDE 0.9% 50 ML IV SCH (08:15)
[2021-12-05] MEDS: Patient's ALLERGY Info needs ENTERED SCH (08:23)
[2021-12-05] MEDS ORDERED: POTASSIUM CHLORIDE CRTAB 20 MEQ TABCR PO STA (08:26)
--- NOTE | 2021-12-05 08:42 | Medical Student Progress Note ---
Date of Service December 05, 2021 Assessment & Plan (1) Alcohol withdrawal: Plan Ofe is a 66 yo female with past medical hx of anxiety, depression, HTN & alcohol use disorder with a hx of alcohol withdrawal seizures who is on Day 2 of admission for alcohol detox. (1) Alcohol withdrawal -cont Librium taper, 25mg q8 today -Following AWSS protocol, Ativan 1-3 mg IV prn, need to maintain IV access given hx of withdrawal seizures -Thiamine 200mg IV daily -Folate 1mg PO daily (2) HTN -previously took amlodipine, BPs have been WNL since admission, no need for med at this time -continue to monitor BP (3) Anxiety -Paroxetine 10mg qd @1200 -Pt reports being on high dose back in [place], so will likely be increasing this dose when appropriate -psych consult once alcohol withdrawal stable. Pt expressed interest in 1v1 grief counseling, suggested setting up with PCP after discharge. Normal diet. Full code. Lovenox 40mg SQ qd. PCU. Admission and Anticipated Discharge Date Admission Date: December 03, 2021 Aislinn Thakur is a 66 yo female with past medical hx of anxiety, depression, HTN & alcohol use disorder with a hx of alcohol withdrawal seizures who is on Day 2 of admission for alcohol detox. Physical Exam Constitutional: + in distress and + diaphoretic Eyes: EOM intact bilaterally and + nystagmus Neck: trachea midline, no thyromegaly Respiratory: normal respiratory effort, lungs clear to auscultation Cardiovascular: RRR, no murmur, no edema Gastrointestinal (Abdomen): normal bowel sounds, soft, nontender, no hepatosplenomegaly Musculoskeletal: no cyanosis or clubbing, extremities motor strength 5/5 Results & Data ([facility]) Vital Signs (Past 12 Hours) Vital Signs Temp Pulse Resp BP Pulse Ox O2 Del Method 12/05/21 06:42 36.7 C 89 18 140/81 95 Room Air 12/05/21 04:03 36.6 C 85 20 142/78 H 98 Room Air 12/04/21 23:01 36.7 C 80 18 151/75 H 96 Room Air
[2021-12-05] MEDS: PARoxetine HCL 10 MG TAB PO SCH (12:27)
[2021-12-05] MEDS: ACETAMINOPHEN 325 MG TAB PO PRN (14:02)
--- NOTE | 2021-12-05 15:11 | Hospitalist Progress Note ---
Date of Service December 05, 2021 Assessment & Plan (1) Alcohol withdrawal: (2) Anxiety: (3) Hypertension: Plan Ofe is a 66 year old female with past medical history of anxiety, depression, alcohol dependence w/ hx of alcohol withdrawal seizures. Alcohol withdrawal/dependence: -Last drink morning of 12/03/21, drank 9 beers/day. -Alcohol level <10 on admission. -Prior history of alcohol w/drawal seizures, admitted to PCU. -Ordered Thiamine 200mg IV daily, Folate 1mg daily. -AWSS protocol, ativan 1-3mg; on Librium taper. -Continue to monitor for symptoms. Anxiety: -Patient in very anxious state since . -Sees [place] however may need adjustment. -Will continue paroxetine 20mg qHS -Patient will need close follow up outpatient and return to grief counseling. HTN: -BP WNL, no need for medication at this time. DVT Prophylaxis: SCDs F/E/N/GI: Regluar diet Code Status: Full code Dispo: PCU, upon discharge patient would benefit greatly from alcohol rehab, continued grief counseling, close follow up with psych and PCP. Admission and Anticipated Discharge Date Admission Date: December 03, 2021 Subjective Patient seen at the bedside this morning, resting in chair by the bed. Patient still anxious about the future course/disposition when leaving the hospital. Still with mild tremors at times, denies fevers, chills, shortness of breath. Review of Systems Review of Systems: as per hpi. Physical Exam Constitutional: WD/WN, vitals as above Eyes: PERRL, conjunctivae normal, anicteric sclerae Respiratory: normal respiratory effort, lungs clear to auscultation Cardiovascular: RRR, no murmur, no edema Gastrointestinal (Abdomen): normal bowel sounds, soft, nontender, no hepatosplenomegaly Psychiatric: Orientation: alert and oriented x 3 Apperance: appropriately groomed Eye Contact: good eye contact Motor Behavior: + tremor (mild) Affect: + tearful affect Mood: + anxious mood Suicidal Thoughts: denies suicidal thoughts Results & Data Results & Data ([facility]) Vital Signs (Past 12 Hours) Vital Signs Temp Pulse Resp BP Pulse Ox O2 Del Method 12/05/21 12:00 36.4 C L 103 H 18 123/66 99 Room Air 12/05/21 06:42 36.7 C 89 18 140/81 95 Room Air 12/05/21 04:03 36.6 C 85 20 142/78 H 98 Room Air Resident Activity Tracking Resident Involvement: Resident Care Provided Care Provided: Adult Hospital Medicine
[2021-12-05 16:32] LABS: 7-Aminoclonaz, Confirm NEGATIVE ng/mL (<25); Hydro-Alp Ur, GC/MS NEGATIVE ng/mL (<25); Hydroxyethylflurazepam, Conf NEGATIVE ng/mL (<50); Hydroxymidazolam Ur, GC/MS NEGATIVE ng/mL (<50); Hydroxytriazolam NEGATIVE ng/mL (<50); Lorazepam, Ur GC/MS 1400 ng/mL (<50); Nordiazepam, Confirm NEGATIVE ng/mL (<50); Oxazepam Ur, GC/MS NEGATIVE ng/mL (<50); Temazepam, Confirm NEGATIVE ng/mL (<50)
[2021-12-05] MEDS ORDERED: HYDROCODONE/ACETAMOPHEN 5/325MG TAB PO ONE (18:36)
[2021-12-05] MEDS: LORazepam 1 MG in SYRINGE 0.5 ML IV PRN (18:46)
[2021-12-05] MEDS: DICLOFENAC SOD 1% GEL 100 GM TUBE EXT SCH (20:57)
[2021-12-05] MEDS: GABAPENTIN 300 MG CAP PO SCH (21:04)
[2021-12-06 06:14] LABS: Basophils # (auto) 0.03 K/uL (0-0.2); Basophils % (auto) 0.7 %; Eosinophils % (auto) 2.4 %; Hematocrit (blood only) 36.7 % (34.1-44.9); Hemoglobin 12.8 g/dl (12.0-16.0); Immature Granulocytes # (auto) 0.03 K/uL (0.00-0.02); Immature Granulocytes % (auto) 0.7 %; Lymphocytes % (auto) 46.5 %; Mean Corpuscular Hemoglobin 33.3 pg (25.0-34.0); Mean Corpuscular Hgb Conc 34.9 g/dL (32.0-36.0); Mean Corpuscular Volume 95.6 fL (80.0-100.0); Mean Platelet Volume 8.8 fL (9.4-12.3); Monocytes # (auto) 0.45 K/uL (0.24-0.82); Neutrophils # (auto) 1.58 K/uL (1.4-6.5); Neutrophils % (auto) 38.7 %; Platelet Count 233 K/uL (130-400); RDW Coefficient of Variation 12.5 % (11.5-14.5); RDW Standard Deviation 44.2 fL (36.4-46.3); Red Blood Count 3.84 M/uL (3.93-5.22); White Blood Count 4.09 K/ul (4.8-10.8)
[2021-12-06 06:38] LABS: BUN Creatinine Ratio 26.3 (10-20); Calcium 9.1 mg/dl (8.5-10.1); Est GFR (African American) 95.4 ml/min; Est GFR (Non-African American) 82.3 ml/min; Potassium 3.6 mmol/L (3.5-5.1)
[2021-12-06] MEDS: FOLIC ACID 1 MG TAB PO SCH (07:58)
[2021-12-06] MEDS: GABAPENTIN 300 MG CAP PO SCH ×2 (07:58→20:40)
[2021-12-06] MEDS: NICOTINE 21 MG/24 HR TDSY TD SCH (07:58)
[2021-12-06] MEDS: DICLOFENAC SOD 1% GEL 100 GM TUBE EXT SCH ×4 (07:59→20:39)
[2021-12-06] MEDS: ACETAMINOPHEN 325 MG TAB PO PRN ×2 (08:06→16:32)
[2021-12-06] MEDS: THIAMINE HCL 100 MG TAB PO SCH (10:21)
--- NOTE | 2021-12-06 10:22 | Hospitalist Progress Note ---
Date of Service December 06, 2021 Assessment & Plan (1) Alcohol withdrawal: Plan: Ofe is a 66 year old female with past medical history of anxiety, depression, alcohol dependence w/ hx of alcohol withdrawal seizures. Alcohol withdrawal/dependence: -Last drink morning of 12/03/21, drank 9 beers/day. -Alcohol level <10 on admission. -Prior history of alcohol withdrawal seizures, admitted to PCU. -Cont. Thiamine 100mg daily, Folate 1mg daily. -AWSS protocol, ativan 1-3mg; on Librium taper. Tolerating gabapentin. Consider titrating up. -still very stressed and anxious about going back to drinking if she went home. will discuss naltrexone treatment in am. -Psych Liaison: [facility] can accept patient for counseling, pt will call Wednesday. Anxiety: -Patient in very anxious state since . -Sees [place]. -Tolerating addition of paroxetine 20mg qHS. -Tolerating addition of gabapentin. consider titrating up. -Patient will need close follow up outpatient and return to grief counseling. HTN: -BP WNL, no need for medication at this time. L shoulder pain, chronic -likely due to arthritis, improved today -cont. voltaren gel, tylenol. DVT Prophylaxis: SCDs F/E/N/GI: Regular Code Status: Full code Dispo: PCU, upon discharge patient would benefit greatly from alcohol rehab, continued grief counseling, close follow up with psych and PCP. anticipate d/c in next 24-48hrs (2) Anxiety: (3) Hypertension: Admission and Anticipated Discharge Date Admission Date: December 03, 2021 Supervising Physician Co-Signing Physician Notes Resident Physician Supervision Note: I independently interviewed and examined the patient and verified the patton history and physical, reviewed labs and image studies and agree with resident findings and care plan. Subjective Patient seen at bedside this morning. Still anxious but improved from yesterday. Left shoulder pain improved with better mobility. Tremors improving. Denies fevers, chills, shortness of breath, chest pain, headache. Amenable to going straight to [facility] if able. Review of Systems Review of Systems: All systems reviewed & are unremarkable except as noted in HPI & below Physical Exam Physical Exam: Constitutional: WD/WN, in no acute distress, pleasant, anxious. Vitals as above. HEENT: No scleral injection or discharge.Moist mucous membranes. Neck: Trachea midline. Lungs: Clear to auscultation bilaterally with good effort. Cardiac: RRR. No murmurs. Abdomen: +BS. Soft, nontender, and nondistended.No guarding or rebound tenderness. No hepatosplenomegaly. MSK: Bilateral UE full active ROM. Skin: No rashes, warm, dry. Neurologic: AOx3. No focal deficits. No clonus. PERRL. No tremor noted. Results & Data Results & Data ([facility]) Vital Signs (Past 12 Hours) Vital Signs Temp Pulse Pulse Resp BP Pulse Ox O2 Del Method 12/06/21 07:12 36.4 C L 81 18 122/70 96 Room Air 12/06/21 03:07 36.5 C 12/06/21 03:04 83 17 159/87 H 98 Room Air 12/06/21 00:09 98 H 12/05/21 22:57 36.6 C 92 H 20 139/82 97 Room Air Laboratory Results 12/06/21 12/06/21 12/04/21 Range/Units 05:34 05:34 08:45 WBC 4.09 L (4.8-10.8) K/ul RBC 3.84 L (3.93-5.22) M/uL Hgb 12.8 (12.0-16.0) g/dl Hct 36.7 (34.1-44.9) % MCV 95.6 (80.0-100.0) fL MCH 33.3 (25.0-34.0) pg MCHC 34.9 (32.0-36.0) g/dL RDW Std Deviation 44.2 (36.4-46.3) fL RDW Coeff of Vignesh 12.5 (11.5-14.5) % Plt Count 233 (130-400) K/uL MPV 8.8 L (9.4-12.3) fL Immature Gran % (Auto) 0.7 % Neut % (Auto) 38.7 % Lymph % (Auto) 46.5 % [place] % (Auto) 11.0 % Eos % (Auto) 2.4 % Baso % (Auto) 0.7 % Neut # (Auto) 1.58 (1.4-6.5) K/uL Lymph # (Auto) 1.90 (1.2-3.4) K/uL [place] # (Auto) 0.45 (0.24-0.82) K/uL Eos # (Auto) 0.10 (0-0.50) K/uL Baso # (Auto) 0.03 (0-0.2) K/uL Immature Gran # (Auto) 0.03 H (0.00-0.02) K/uL Sodium 138 (136-145) mmol/L Potassium 3.6 (3.5-5.1) mmol/L Chloride 107 (98-107) mmol/L Carbon Dioxide 26 (21-32) mmol/L Anion Gap 5 (3-11) BUN 20 (6-23) mg/dl Creatinine 0.76 (0.6-1.2) mg/dl Est Cr Clr Drug Dosing 61.0 ml/min Est GFR ( Amer) 95.4 ml/min Est GFR (Non-Af Amer) 82.3 ml/min BUN/Creatinine Ratio 26.3 H (10-20) Glucose 88 (70-99(Fasting)) mg/dl Calcium 9.1 (8.5-10.1) mg/dl U OH-Alprazolam Confrm NEGATIVE (<25) ng/mL 7-[place] Clonazepam NEGATIVE (<25) ng/mL Ur Nordiazepam Confirm NEGATIVE (<50) ng/mL U OH-ethylflurazepam NEGATIVE (<50) ng/mL U Lorazepam Cnf GC/MS 1400 H (<50) ng/mL U Oxazepam Confm GC/MS NEGATIVE (<50) ng/mL Ur Temazepam Confirm NEGATIVE (<50) ng/mL U OH-Triazolam Confirm NEGATIVE (<50) ng/mL U OH-Midazolam Confirm NEGATIVE (<50) ng/mL Drug Screen Comment SEE NOTE Resident Activity Tracking Resident Involvement: Resident Care Provided Care Provided: Adult Hospital Medicine
[2021-12-06] MEDS: PARoxetine HCL 10 MG TAB PO SCH (14:09)
[2021-12-06] MEDS: Patient's ALLERGY Info needs ENTERED SCH (16:24)
[2021-12-06] MEDS: LORazepam 1 MG in SYRINGE 0.5 ML IV PRN ×2 (16:35→20:43)
[2021-12-06] MEDS: chlordiazePOXIDE HCl 5 MG CAP PO SCH (20:39)
[2021-12-06] MEDS ORDERED: KETOROLAC TROMETHAMINE 15 MG/ML VIAL IV ONE (23:10)
--- NOTE | 2021-12-07 06:58 | Hospitalist Progress Note ---
Date of Service December 07, 2021 Assessment & Plan (1) Alcohol withdrawal: Plan: Ofe is a 66 year old female with past medical history of anxiety, depression, alcohol dependence w/ hx of alcohol withdrawal seizures. Alcohol withdrawal/dependence: -Last drink morning of 12/03/21, drank 9 beers/day. -Alcohol level <10 on admission. -Prior history of alcohol withdrawal seizures, admitted to PCU. -Cont. Thiamine 100mg daily, Folate 1mg daily. -AWSS protocol, ativan 1-3mg; Librium taper completed today. Tolerating gabapentin, inc. to 300mg TID. -Discussed starting naltrexone, pt amenable. Started naltrexone 50mg daily. will need to avoid narcotics while on it. GI side effects reviewed -Psych Liaison: [facility] can accept patient for outpatient counseling, pt will call Wednesday. -patient will be best served with inpatient rehab -Still very stressed and anxious about going back to drinking if she went home. Amenable to inpatient rehab which would be ideal for discharge. CM will offer resources in am. Anxiety: Significant paranoia -Patient in very anxious state since . -Sees [place]. -Tolerating addition of paroxetine 20mg qHS. -Tolerating addition of gabapentin, dose inc. as above -Patient will need close follow up outpatient and return to grief counseling. -Director Of Pulmonary Unit ordered per pt request HTN: -BP elevated in am -restarted home amlodipine L shoulder pain, chronic -likely due to arthritis, improved but still complains of posterior neck and L shoulder pain -ordered cervical/thoracic xrays for further evaluation -cont. voltaren gel, tylenol. -consider OMT in am DVT Prophylaxis: SCDs F/E/N/GI: Regular Code Status: Full code Dispo: PCU; ideally pt can go directly to inpatient rehab as I do not think she will do well at home, anticipate d/c in next 24-48hrs (2) Anxiety: (3) Hypertension: Admission and Anticipated Discharge Date Admission Date: December 03, 2021 Supervising Physician Co-Signing Physician Notes Resident Physician Supervision Note: I independently interviewed and examined the patient and verified the patton history and physical, reviewed labs and image studies and agree with resident findings and care plan. Subjective Patient seen at bedside this morning. >72 hours out from last drink. Still anxious but improved from yesterday. Left shoulder pain improved but still has some posterior neck/shoulder pain. Tremors improving. Denies fevers, chills, shortness of breath, chest pain, headache. Amenable to going inpatient rehab if possible. Review of Systems Review of Systems: All systems reviewed & are unremarkable except as noted in HPI & below Physical Exam Physical Exam: Constitutional: WD/WN, in no acute distress, pleasant, anxious. Vitals as above. HEENT: No scleral injection or discharge.Moist mucous membranes. Neck: Trachea midline. Lungs: Clear to auscultation bilaterally with good effort. Cardiac: RRR. No murmurs. Abdomen: +BS. Soft, nontender. Mildly distended.No guarding or rebound tenderness. No hepatosplenomegaly. MSK: Bilateral UE full active ROM. Skin: No rashes, warm, dry. Neurologic:AOx3. No focal deficits. No clonus. PERRL. No tremor noted. Results & Data Results & Data ([facility]) Vital Signs (Past 12 Hours) Vital Signs Temp Pulse Pulse Resp BP Pulse Ox O2 Del Method 12/07/21 04:25 36.3 C L 75 20 167/86 H 97 Room Air 12/07/21 00:40 93 H 12/06/21 23:53 36.4 C L 81 19 179/80 H 96 Room Air 12/06/21 20:32 36.9 C 92 H 21 149/82 H 95 Room Air Resident Activity Tracking Resident Involvement: Resident Care Provided Care Provided: Adult Hospital Medicine
[2021-12-07] MEDS: THIAMINE HCL 100 MG TAB PO SCH (08:23)
[2021-12-07] MEDS: FOLIC ACID 1 MG TAB PO SCH (08:23)
[2021-12-07] MEDS: GABAPENTIN 300 MG CAP PO SCH ×3 (08:23→20:10)
[2021-12-07] MEDS: NICOTINE 21 MG/24 HR TDSY TD SCH (08:23)
[2021-12-07] MEDS: DICLOFENAC SOD 1% GEL 100 GM TUBE EXT SCH ×4 (08:24→20:10)
[2021-12-07] MEDS: chlordiazePOXIDE HCl 5 MG CAP PO SCH (08:30)
[2021-12-07] MEDS: LORazepam 1 MG in SYRINGE 0.5 ML IV PRN ×2 (09:44→19:56)
[2021-12-07] MEDS: amLODIPine BESYLATE 5 MG TAB PO SCH (11:17)
[2021-12-07] MEDS: PARoxetine HCL 10 MG TAB PO SCH (12:09)
[2021-12-07] MEDS: NALTREXONE HCL 50 MG TAB PO SCH (14:25)
--- NOTE | 2021-12-07 18:54 | XRay Report ---
THORACIC SPINE 3 VIEWS CLINICAL HISTORY: Atraumatic thoracic back pain. FINDINGS: AP, lateral, and swimmer's views of the thoracic spine are obtained. No prior studies are a vailable for comparison at the time of dictation. The skeletal structures are osteopenic. There is no radiographic evidence of acute fracture or malalignment. Age indeterminant superior endplate william sachi deformities of T4 and T5 are likely chronic. There is corresponding hyperkyphosis. Vertebral bod y height is otherwise maintained throughout the thoracic spine. Alignment is preserved. The transvers e processes and pedicles are grossly intact as seen on the frontal view. The disc spaces are preserve d. The visualized lung parenchyma is grossly clear. IMPRESSION: 1. No acute bony abnormality is identified. 2. Mild superior endplate compression deformities in the upper thoracic region are likely chronic. Co rrelate for point tenderness. 3. Mild degenerative change and hyperkyphosis as above. Electronically signed by: Jhon Manuel M.D. 12/07/2021 6:53 PM
--- NOTE | 2021-12-07 18:54 | XRay Report ---
CERVICAL SPINE 3 VIEWS CLINICAL HISTORY: Cervicalgia. Shoulder pain. FINDINGS: AP, lateral, and odontoid views of the cervical spine are obtained. No prior studies are av ailable for comparison at the time of dictation. Skeletal structures are osteopenic. There is no radi ographic evidence of fracture or subluxation. The odontoid process and lateral masses appear intact o n the open mouth view. The atlantodental articulation is maintained noting mild productive degenerati ve change. Vertebral body height is maintained throughout the cervical spine. There is minimal charissa listhesis at C3-C4. Minimal retrolisthesis is noted at C5-C6. There is straightening of the cervical lordosis. Anterior osteophytes are seen throughout. The spinolaminar line is maintained. The spinous processes appear intact. Multilevel facet arthropathy is seen on the frontal view. There is moderate to severe disc space narrowing at C5-C6 and C6-C7. Moderate narrowing is noted at C4-C5. Posterior di sc osteophyte complexes at C4-C5, C5-C6, and C6-C7 may contribute to mild acquired compromise of the central canal. The prevertebral soft tissues are within normal limits. There is advanced atherosclero tic calcification of the carotid bulbs. Apical lung parenchyma is clear as imaged. IMPRESSION: 1. No acute bony abnormality is seen involving the cervical spine. 2. Osteopenia and spondylotic change as above. Dictated: 12/07/2021 5:48 PM Transcribed: 12/07/2021 6:01 PM [place] [id number] [email or web address] Electronically signed by: Jhon Manuel M.D. 12/07/2021 6:53 PM
--- NOTE | 2021-12-08 07:13 | Hospitalist Progress Note ---
Date of Service December 08, 2021 Assessment & Plan (1) Alcohol withdrawal: Plan: Ofe is a 66 year old female with past medical history of anxiety, depression, alcohol dependence w/ hx of alcohol withdrawal seizures. Alcohol withdrawal/dependence -Last drink morning of 12/03/21, drank 9 beers/day. -Alcohol level <10 on admission. -Prior history of alcohol withdrawal seizures, admitted to PCU. -Cont. Thiamine 100mg daily, Folate 1mg daily. -AWSS protocol, Ativan 1-3mg prn; Librium taper completed. Tolerating gabapentin, inc. to 300mg TID. -Discussed starting naltrexone, pt amenable. Started naltrexone 50mg daily. -Psych Liaison: [facility] can accept patient for outpatient counseling, pt will call Wednesday. -Still very stressed and anxious about going back to drinking if she went home. Amenable to inpatient rehab which would be ideal for discharge. Patient will call inpatient rehab facilities for bed placement. Will follow-up Anxiety -Patient in very anxious state since . -Sees [place]. -Tolerating addition of paroxetine 20mg qHS. -Tolerating addition of gabapentin, dose inc. as above -Patient will require close outpatient follow up outpatient and return to grief counseling. -Bench Assembler ordered per pt request HTN -BP elevated in am -restarted home amlodipine L shoulder pain, chronic -likely due to arthritis, improved but still complains of posterior neck and L shoulder pain -Cervical, thoracic x-rays negative for acute or subacute fracture (some osteopenic, degenerative changes noted). Possible cardiovascular etiology, given abnormal EKG, radiation of shoulder pain down left arm. * Consider repeat EKG at next incidence of shoulder pain. * cont. Voltaren gel, Tylenol. DVT Prophylaxis: SCDs F/E/N/GI: Regular Code Status: Full code Dispo: MedSurg; ideally pt can go directly to inpatient rehab as I do not think she will do well at home, anticipate d/c in next 24-48hrs (2) Anxiety: (3) Hypertension: Admission and Anticipated Discharge Date Admission Date: December 03, 2021 Supervising Physician Co-Signing Physician Notes I personally examined the patient and verified all patton points of history and exam, discussed case, and agree with decision making with Dr Pelaez Deciding whether or not she wants to go to inpatient rehab. Notes she still has high anxiety, notes that mostly she drinks to try to help with anxiety. Anxiety has been way worse over the last year to a year and a half, getting to where she is worried about "becoming a hermit" Vitals noted, in general she is in no physical distress but appears visibly anxious. HEENT normocephalic atraumatic mucous membranes moist. Breathing unlabored no accessory muscle use good effort. Skin shows no rashes no pallor or icterus. Neuro without focal deficits. Alcohol abuse/withdrawalappears to mostly now be symptomatic from anxiety more so than alcohol withdrawal. Suspect that she drinks mostly to self medicate for the anxiety, to which she concurs. Discussed benefits of an inpatient versus outpatient approach, at this point she feels she would probably prefer to go an inpatient approach. Discussed what I know about facilities in the area and sug gested that she start making phone calls today to try to help streamline the process. Discussed med management for anxiety, and that it generally is small benefit at best, and most improvement in anxiety will come with things such as social support, cognitive behavioral therapy, etc. Continue current med management, probably titrate up Paxil. otherwise as above Subjective No acute events overnight. Patient reports improved overall anxiety. However, she is very anxious this morning. She is worried about the possibility of her going home at this time as she feels that her anxiety is not managed well enough to deal with basic social situations right now. She is worried that she will return to alcohol to cope with her anxiety. Review of Systems Review of Systems: All systems reviewed & are unremarkable except as noted in HPI & below Physical Exam Physical Exam: General: Fearful-appearing, tremulous but alert, interactive, and in no acute distress. HEENT: Normocephalic, atraumatic. EOM intact. Good conjugate gaze. Nares patent. Moist mucosal membranes. Neck: Supple. No lymphadenopathy. Normal ROM. CV: Tachycardic to the 100s. Regular rhythm. Normal S1 and S2. No murmurs gallops or rubs. Respiratory: Normal respiratory effort. Lungs clear to auscultation bilaterally. No crackles, rhonchi, or wheezes. Abdomen: Soft, nondistended abdomen. No bruits heard on auscultation. No tenderness to deep palpation. Extremities: Capillary refill <2 sec. 2+ dp equal bilaterally. No pedal edema. Neuro: Alert and oriented x3. Skin: Clean, dry, and intact. No rashes, bruises, or erythema. Results & Data Results & Data ([facility]) Vital Signs (Past 12 Hours) Vital Signs Temp Pulse Pulse Resp BP Pulse Ox O2 Del Method 12/08/21 06:57 79 12/08/21 05:41 36.3 C L 95 H 21 161/91 H 98 Room Air 12/08/21 01:20 37 C 88 19 137/74 96 Room Air 12/08/21 02:53 36.7 C 83 18 131/76 98 Room Air 12/07/21 23:15 80 12/07/21 23:10 36.7 C 87 19 130/67 98 Room Air 12/07/21 21:24 36.5 C 87 20 137/63 98 Room Air 12/07/21 19:38 36.4 C L 103 H 22 122/75 96 Room Air Resident Activity Tracking Resident Involvement: Resident Care Provided Care Provided: Adult Hospital Medicine
[2021-12-08] MEDS: GABAPENTIN 300 MG CAP PO SCH ×4 (08:44→21:13)
[2021-12-08] MEDS: NALTREXONE HCL 50 MG TAB PO SCH (08:44)
[2021-12-08] MEDS: THIAMINE HCL 100 MG TAB PO SCH (08:44)
[2021-12-08] MEDS: FOLIC ACID 1 MG TAB PO SCH (08:44)
[2021-12-08] MEDS: amLODIPine BESYLATE 5 MG TAB PO SCH (08:45)
[2021-12-08] MEDS: NICOTINE 21 MG/24 HR TDSY TD SCH (08:45)
[2021-12-08] MEDS: DICLOFENAC SOD 1% GEL 100 GM TUBE EXT SCH ×4 (08:46→21:12)
[2021-12-08] MEDS: LORazepam 1 MG in SYRINGE 0.5 ML IV PRN ×3 (09:08→23:43)
[2021-12-08] MEDS: PARoxetine HCL 10 MG TAB PO SCH (12:04)
--- NOTE | 2021-12-08 18:21 | Billing Data ---
Date of Service December 08, 2021 Coding Level of Care Code 58046 Subseq Hosp Care Lvl 3
[2021-12-08] MEDS ORDERED: KETOROLAC TROMETHAMINE 15 MG/ML VIAL IV ONE (19:30)
[2021-12-09] MEDS: ACETAMINOPHEN 325 MG TAB PO PRN (07:32)
[2021-12-09] MEDS: GABAPENTIN 300 MG CAP PO SCH ×3 (09:11→20:41)
[2021-12-09] MEDS: amLODIPine BESYLATE 5 MG TAB PO SCH (09:11)
[2021-12-09] MEDS: THIAMINE HCL 100 MG TAB PO SCH (09:11)
[2021-12-09] MEDS: FOLIC ACID 1 MG TAB PO SCH (09:11)
[2021-12-09] MEDS: NICOTINE 21 MG/24 HR TDSY TD SCH (09:11)
[2021-12-09] MEDS: NALTREXONE HCL 50 MG TAB PO SCH (09:12)
[2021-12-09] MEDS: DICLOFENAC SOD 1% GEL 100 GM TUBE EXT SCH ×4 (09:12→20:40)
[2021-12-09] MEDS: busPIRone 15 MG TAB PO SCH ×2 (09:31→20:41)
[2021-12-09] MEDS ORDERED: PARoxetine HCL 20 MG TAB PO SCH (12:00)
--- NOTE | 2021-12-09 18:22 | Hospitalist Progress Note ---
Date of Service December 09, 2021 Assessment & Plan (1) Alcohol withdrawal: Plan: Ofe is a 66 year old female with past medical history of anxiety, depression, alcohol dependence w/ hx of alcohol withdrawal seizures. Alcohol withdrawal/dependence -Last drink morning of 12/03/21, drank 9 beers/day. -Alcohol level <10 on admission. -Prior history of alcohol withdrawal seizures, admitted to PCU. -Cont. Thiamine 100mg daily, Folate 1mg daily. -AWSS protocol. Librium taper completed. Tolerating gabapentin, inc. to 300mg TID. -Discussed starting naltrexone, pt amenable. Started naltrexone 50mg daily. -Psych Liaison: [facility], pt will call Wednesday. -Still very stressed and anxious about going back to drinking if she went home. Amenable to inpatient rehab which would be ideal for discharge. Patient will call inpatient rehab facilities for bed placement. Currently waiting for approval from 3 facilities. * Discontinued Ativan, phasing out AWSS protocol, as patient no longer in withdrawal. * Stopped paroxetine. Replaced with fluvoxamine 50 mg nightly. Will increase to 100 mg prior to discharge. Anxiety -Patient in very anxious state since . -Sees [place]. -Now on fluvoxamine 50 mg nightly. -Tolerating addition of gabapentin, dose inc. as above -Patient will require close outpatient follow up outpatient and return to grief counseling. -In Process Inspector ordered per pt request HTN -BP elevated in am -restarted home amlodipine L shoulder pain, chronic -likely due to arthritis, improved but still complains of posterior neck and L shoulder pain -Cervical, thoracic x-rays negative for acute or subacute fracture (some osteopenic, degenerative changes noted). Possible cardiovascular etiology, given abnormal EKG, radiation of shoulder pain down left arm. * Consider repeat EKG at next incidence of shoulder pain. * cont. Voltaren gel, Tylenol. DVT Prophylaxis: SCDs F/E/N/GI: Regular Code Status: Full code Dispo: MedSurg; ideally pt can go directly to inpatient rehab as I do not think she will do well at home. Currently awaiting approval. (2) Anxiety: (3) Hypertension: Admission and Anticipated Discharge Date Admission Date: December 03, 2021 Supervising Physician Co-Signing Physician Notes I personally examined the patient and verified all patton points of history and exam, discussed case, and agree with decision making with Dr Pelaez Has made several calls to go to inpatient rehab. Still awaiting on finalizing the process. More anxious today. Vitals noted, in general she is in no physical distress but appears visibly anxious. HEENT normocephalic atraumatic mucous membranes moist. Breathing unlabored no accessory muscle use good effort. Skin shows no rashes no pallor or icterus. Neuro without focal deficits. Alcohol abuse/withdrawalconsistently appearing to be symptomatic from anxiety more so than alcohol withdrawal at this point. Med management for anxiety, reemphasized social support, lifestyle, counseling tends to have more of a lasting and meaningful impact on the medications alone. Ongoing encouragement to go to inpatient rehab. otherwise as above Subjective No acute events overnight. Patient is awake and alert in bed this morning upon arrival. She reports improvement in her anxiety, though she still reports specific rumination about to her shoulder pain. Her appetite remains good. She had an Ativan overnight for anxiety, which she reports helped. She made calls to 5 inpatient rehab facilities yesterday, securing 3 promising leads. She plans to update her disease case manager, Johnna, and initiate the transfer of medical records. Review of Systems Review of Systems: All systems reviewed & are unremarkable except as noted in HPI & below Physical Exam Physical Exam: General: Fearful-appearing, tremulous but alert, interactive, and in no acute distress. HEENT: Normocephalic, atraumatic. EOM intact. Good conjugate gaze. Nares patent. Moist mucosal membranes. Neck: Supple. No lymphadenopathy. Normal ROM. CV: Regular rate and rhythm. Normal S1 and S2. No murmurs gallops or rubs. Respiratory: Normal respiratory effort. Lungs clear to auscultation bilaterally. No crackles, rhonchi, or wheezes. Abdomen: Soft, nondistended abdomen. No bruits heard on auscultation. No tenderness to deep palpation. Extremities: Capillary refill <2 sec. 2+ dp equal bilaterally. No pedal edema. Neuro: Alert and oriented x3. Skin: Clean, dry, and intact. No rashes, bruises, or erythema. Results & Data Results & Data ([facility]) Vital Signs (Past 12 Hours) Vital Signs Temp Pulse Resp BP Pulse Ox O2 Del Method 09/27/22 14:39 36.5 C 96 H 16 113/65 98 Room Air 12/09/21 11:11 36.6 C 89 16 114/66 97 Room Air 12/09/21 07:05 36.7 C 80 16 134/76 96 Room Air Resident Activity Tracking Resident Involvement: Resident Care Provided Care Provided: Adult Hospital Medicine
--- NOTE | 2021-12-09 18:35 | Billing Data ---
Date of Service December 09, 2021 Coding Level of Care Code 65465 Subseq Hosp Care Lvl 3
[2021-12-09] MEDS: diphenhydrAMINE Capsule 25 MG CAP PO PRN (20:40)
[2021-12-09] MEDS: DOCUSATE SODIUM 100 MG CAP PO SCH (20:40)
[2021-12-09] MEDS: fluvoxaMINE MALEATE 50 MG TAB PO SCH (20:41)
--- NOTE | 2021-12-09 22:51 | Electrocardiogram Report ---
Test Reason : Blood Pressure : / mmHG Vent. Rate : 090 BPM Atrial Rate : 090 BPM P-R Int : 130 ms QRS Dur : 084 ms QT Int : 368 ms P-R-T Axes : 072 053 058 degrees QTc Int : 450 ms Normal sinus rhythm Normal ECG When compared with ECG of 03-DEC-2021 16:17, Premature ventricular complexes are no longer Present Minimal criteria for Anterior infarct are no longer Present T wave amplitude has increased in Anterior leads Confirmed by Mundo Young ([id number]) on 12/09/2021 10:51:30 PM Referred By: REFERRED SELF Confirmed By:Mundo Young
[2021-12-10] MEDS: THIAMINE HCL 100 MG TAB PO SCH (09:12)
[2021-12-10] MEDS: GABAPENTIN 300 MG CAP PO SCH ×3 (09:12→20:36)
[2021-12-10] MEDS: NALTREXONE HCL 50 MG TAB PO SCH (09:12)
[2021-12-10] MEDS: NICOTINE 21 MG/24 HR TDSY TD SCH (09:12)
[2021-12-10] MEDS: busPIRone 15 MG TAB PO SCH ×2 (09:12→20:36)
[2021-12-10] MEDS: FOLIC ACID 1 MG TAB PO SCH (09:12)
[2021-12-10] MEDS: amLODIPine BESYLATE 5 MG TAB PO SCH (09:13)
[2021-12-10] MEDS: DICLOFENAC SOD 1% GEL 100 GM TUBE EXT SCH ×4 (09:13→20:34)
[2021-12-10] MEDS: DOCUSATE SODIUM 100 MG CAP PO SCH ×2 (09:13→20:36)
[2021-12-10] MEDS: ACETAMINOPHEN 325 MG TAB PO PRN (12:24)
--- NOTE | 2021-12-10 17:11 | Hospitalist Progress Note ---
Date of Service December 10, 2021 Assessment & Plan (1) Alcohol withdrawal: Plan: Ofe is a 66 year old female with past medical history of anxiety, depression, alcohol dependence w/ hx of alcohol withdrawal seizures. Alcohol withdrawal/dependence -Last drink morning of 12/03/21, drank 9 beers/day. -Alcohol level <10 on admission. -Prior history of alcohol withdrawal seizures, admitted to PCU. -Cont. Thiamine 100mg daily, Folate 1mg daily. -AWSS protocol. Librium taper completed. Tolerating gabapentin, inc. to 300mg TID. -Discussed starting naltrexone, pt amenable. Started naltrexone 50mg daily. -Psych Liaison: [facility] accept patient for outpatient counseling, pt will call Wednesday. -Still very stressed and anxious about going back to drinking if she went home. Amenable to inpatient rehab which would be ideal for discharge. Patient will call inpatient rehab facilities for bed placement. Currently waiting for approval from 3 facilities. -Per manager college: [facility] (inpatient rehab facility) can likely take her tomorrow, to be covered by [facility] as she is a Medicare patient. * Discontinued Ativan, phasing out AWSS protocol, as patient no longer in withdrawal. * Stopped paroxetine. Replaced with fluvoxamine 50 mg nightly. Will increase to 100 mg prior to discharge. Anxiety -Patient in very anxious state since . -Sees [place]. -Now on fluvoxamine 50 mg nightly. -Tolerating addition of gabapentin, dose inc. as above -Patient will require close outpatient follow up outpatient and return to grief counseling. -Utility Worker Forge ordered per pt request HTN -BP elevated in am -restarted home amlodipine L shoulder pain, chronic -likely due to arthritis, improved but still complains of posterior neck and L shoulder pain -Cervical, thoracic x-rays negative for acute or subacute fracture (some osteopenic, degenerative changes noted). Possible cardiovascular etiology, given abnormal EKG, radiation of shoulder pain down left arm. * Consider repeat EKG at next incidence of shoulder pain. * cont. Voltaren gel, Tylenol. DVT Prophylaxis: SCDs F/E/N/GI: Regular Code Status: Full code Dispo: MedSurg; awaiting transfer to inpatient rehab facility. (2) Anxiety: (3) Hypertension: Admission and Anticipated Discharge Date Admission Date: December 03, 2021 Supervising Physician Co-Signing Physician Notes I personally examined the patient and verified all patton points of history and exam, discussed case, and agree with decision making with Dr Benigno Moss doing a bit better. Feels like [facility] would be the best fit. Trying to finalize details. Vitals noted, in general she is in no physical distress but appears visibly anxious. HEENT normocephalic atraumatic mucous membranes moist. Breathing unlabored no accessory muscle use good effort. Skin shows no rashes no pallor or icterus. Neuro without focal deficits. Alcohol abuse/withdrawalreally appears to be out of any significant alcohol withdrawal. Now mostly anxiety and chronic alcohol dependence management. Safe/stable for rehabit sounds like this will probably be able to be facilitated quicklytherefore ideally would have patient go straight from the [facility] to [facility] rehab. otherwise as above Subjective No acute events overnight. Patient has no acute complaints. Anxiety appears markedly improved versus yesterday. She is in the process of reaching out to [facility], and is waiting to hear back from them about whether they have space to take her. Review of Systems Review of Systems: All systems reviewed & are unremarkable except as noted in HPI & below Physical Exam Physical Exam: General: Alert, oriented, interactive, and in no acute distress. HEENT: Normocephalic, atraumatic. EOM intact. Good conjugate gaze. Nares patent. Moist mucosal membranes. Neck: Supple. No lymphadenopathy. Normal ROM. CV: Regular rate and rhythm. Normal S1 and S2. No murmurs gallops or rubs. Respiratory: Normal respiratory effort. Lungs clear to auscultation bilaterally. No crackles, rhonchi, or wheezes. Abdomen: Soft, nondistended abdomen. No bruits heard on auscultation. No tenderness to deep palpation. Extremities: Capillary refill <2 sec. 2+ dp equal bilaterally. No pedal edema. Neuro: Alert and oriented x3. Skin: Clean, dry, and intact. No rashes, bruises, or erythema. Results & Data Results & Data ([facility]) Vital Signs (Past 12 Hours) Vital Signs Temp Pulse Resp BP Pulse Ox 12/10/21 15:26 36.8 C 87 16 135/75 95 12/10/21 07:26 36.7 C 85 16 130/72 93 Resident Activity Tracking Resident Involvement: Resident Care Provided Care Provided: Adult Hospital Medicine
--- NOTE | 2021-12-10 18:30 | Billing Data ---
Date of Service December 10, 2021 Coding Level of Care Code 08730 Subseq Hosp Care Lvl 3
[2021-12-10] MEDS: diphenhydrAMINE Capsule 25 MG CAP PO PRN (20:34)
[2021-12-10] MEDS: fluvoxaMINE MALEATE 50 MG TAB PO SCH (20:36)
[2021-12-11] MEDS: NICOTINE 21 MG/24 HR TDSY TD SCH (09:09)
[2021-12-11] MEDS: DOCUSATE SODIUM 100 MG CAP PO SCH ×2 (09:10→20:47)
[2021-12-11] MEDS: busPIRone 15 MG TAB PO SCH ×2 (09:10→20:48)
[2021-12-11] MEDS: THIAMINE HCL 100 MG TAB PO SCH (09:10)
[2021-12-11] MEDS: DICLOFENAC SOD 1% GEL 100 GM TUBE EXT SCH ×4 (09:10→20:48)
[2021-12-11] MEDS: amLODIPine BESYLATE 5 MG TAB PO SCH (09:10)
[2021-12-11] MEDS: FOLIC ACID 1 MG TAB PO SCH (09:10)
[2021-12-11] MEDS: GABAPENTIN 300 MG CAP PO SCH ×3 (09:10→20:48)
[2021-12-11] MEDS: NALTREXONE HCL 50 MG TAB PO SCH (09:10)
[2021-12-11] MEDS: ACETAMINOPHEN 325 MG TAB PO PRN ×3 (09:22→23:23)
--- NOTE | 2021-12-11 18:44 | Billing Data ---
Date of Service December 11, 2021 Coding Level of Care Code 35007 Subseq Hosp Care Lvl 2
--- NOTE | 2021-12-11 18:45 | Hospitalist Progress Note ---
Date of Service December 11, 2021 Assessment & Plan (1) Alcohol withdrawal: Plan: Ofe is a 66 year old female with past medical history of anxiety, depression, alcohol dependence w/ hx of alcohol withdrawal seizures. Alcohol withdrawal/dependence -Last drink morning of 12/03/21, drank 9 beers/day. -Alcohol level <10 on admission. -Prior history of alcohol withdrawal seizures, admitted to PCU. -Cont. Thiamine 100mg daily, Folate 1mg daily. -AWSS protocol. Librium taper completed. Tolerating gabapentin, inc. to 300mg TID. -Discussed starting naltrexone, pt amenable. Started naltrexone 50mg daily. -Psych Liaison: [facility] accept patient for outpatient counseling, pt will call Wednesday. -Still very stressed and anxious about going back to drinking if she went home. Amenable to inpatient rehab which would be ideal for discharge. Patient will call inpatient rehab facilities for bed placement. Currently waiting for approval from 3 facilities. -Per caser in: [facility] (inpatient rehab facility) can likely take her tomorrow, to be covered by [facility] as she is a Medicare patient. * Discontinued Ativan, phasing out AWSS protocol, as patient no longer in withdrawal. * Anxiety -Patient in very anxious state since . -Sees [place]. -Tolerating addition of gabapentin -Patient will require close outpatient follow up outpatient and return to grief counseling. -Antitank Assault Gunner ordered per pt request * Stopped paroxetine. Replaced with fluvoxamine 50 mg nightly. Patient tolerating well. Will continue at discharge. * Stopping gabapentin prior to discharge. HTN -BP elevated in am * Currently on home amlodipine L shoulder pain, chronic -likely due to arthritis, improved but still complains of posterior neck and L shoulder pain -Cervical, thoracic x-rays negative for acute or subacute fracture (some osteopenic, degenerative changes noted). Possible cardiovascular etiology, given abnormal EKG, radiation of shoulder pain down left arm. * Consider repeat EKG at next incidence of shoulder pain. * cont. Voltaren gel, Tylenol. DVT Prophylaxis: SCDs F/E/N/GI: Regular Code Status: Full code Dispo: MedSurg; awaiting transfer to inpatient rehab facility. (2) Anxiety: (3) Hypertension: Admission and Anticipated Discharge Date Admission Date: December 03, 2021 Supervising Physician Co-Signing Physician Notes I personally examined the patient and verified all patton points of history and exam, discussed case, and agree with decision making with Dr Pelaez Discussing [facility] rehab with case management. Anticipate being able to go t omorrow Vitals noted, in general she is in no physical distress but appears visibly anxious. HEENT normocephalic atraumatic mucous membranes moist. Breathing unlabored no accessory muscle use good effort. Skin shows no rashes no pallor or icterus. Neuro without focal deficits. Alcohol abuse/withdrawalnow is out of any significant alcohol withdrawal. mostly anxiety and chronic alcohol dependence management. Safe/stable for rehabplan is [facility] tomorrow. otherwise as above Subjective Patient is seated at bedside with . Dimsa Mer[facility] from [facility] upon entering this morning with her bags packed. She again appears improved from an anxiety standpoint. She has no acute concerns at this time. Review of Systems Review of Systems: All systems reviewed & are unremarkable except as noted in HPI & below Physical Exam Physical Exam: General: Alert, oriented, interactive, and in no acute distress. HEENT: Normocephalic, atraumatic. EOM intact. Good conjugate gaze. Nares patent. Moist mucosal membranes. Neck: Supple. No lymphadenopathy. Normal ROM. CV: Regular rate and rhythm. Normal S1 and S2. No murmurs gallops or rubs. Respiratory: Normal respiratory effort. Lungs clear to auscultation bilaterally. No crackles, rhonchi, or wheezes. Abdomen: Soft, nondistended abdomen. No bruits heard on auscultation. No tenderness to deep palpation. Extremities: Capillary refill <2 sec. 2+ dp equal bilaterally. No pedal edema. Neuro: Alert and oriented x3. Skin: Clean, dry, and intact. No rashes, bruises, or erythema. Results & Data Results & Data ([facility]) Vital Signs (Past 12 Hours) Vital Signs Temp Pulse Resp BP Pulse Ox 12/11/21 15:42 36.7 C 90 16 110/51 L 95 12/11/21 07:27 36.5 C 74 16 111/64 97 Resident Activity Tracking Resident Involvement: Resident Care Provided Care Provided: Adult [facility] Medicine
[2021-12-11] MEDS: fluvoxaMINE MALEATE 50 MG TAB PO SCH (20:48)
[2021-12-11] MEDS: diphenhydrAMINE Capsule 25 MG CAP PO PRN (23:25)
[2021-12-12] MEDS: ACETAMINOPHEN 325 MG TAB PO PRN ×2 (08:25→13:18)
[2021-12-12] MEDS: NICOTINE 21 MG/24 HR TDSY TD SCH (08:26)
[2021-12-12] MEDS: DICLOFENAC SOD 1% GEL 100 GM TUBE EXT SCH ×2 (08:26→13:18)
[2021-12-12] MEDS: NALTREXONE HCL 50 MG TAB PO SCH (08:27)
[2021-12-12] MEDS: amLODIPine BESYLATE 5 MG TAB PO SCH (08:27)
[2021-12-12] MEDS: DOCUSATE SODIUM 100 MG CAP PO SCH (08:27)
[2021-12-12] MEDS: THIAMINE HCL 100 MG TAB PO SCH (08:27)
[2021-12-12] MEDS: GABAPENTIN 300 MG CAP PO SCH (08:27)
[2021-12-12] MEDS: FOLIC ACID 1 MG TAB PO SCH (08:27)
[2021-12-12] MEDS: busPIRone 15 MG TAB PO SCH (08:27)
--- NOTE | 2021-12-12 11:59 | Discharge Summary ---
Date of Service December 12, 2021 Admission HPI Per Admitting Provider Ofe Hinkle is a 66 year old female who presents to the ER with concerns for alcohol withdrawal. She is in the ER with her father, however the patient provides the majority of the history. She reports drinking 9 beers a day but feels her anxiety and drinking has now got to a point she needs help. She has a long history of alcohol use disorder over decades. Previously been in inpatient rehabilitation twice in [place].Multiple previous hospitalizations for alcohol withdrawal but has also gone through it herself at home. Most recent alcohol withdrawal was in hospital at the end of February. Previous alcohol withdrawal seizures in 2020. Her last year and she moved from [place] back to [place] in April this year to be closer to the rest of her family. She has struggled with increased depression and anxiety since the of her . She has been going to [facility] for psychiatric care and most recently started on paroxetine. She reports not telling her psychiatrist about her alcohol use. She ran out of paroxetine a week ago and has noticed sudden worsening of anxiety since then. She is taking buspirone and hydroxyzine for anxiety and notes taking more than her prescribed twice a day. Her last alcoholic drink was this morning and she already feels she is going through alcohol withdrawal. She is having tremors, increased anxiety, agitation, diaphoresis and diarrhea. Objectively she has hypertension and tachycardia. She denies any confusion, palpitations or fever. In the ER she was given 3mg lorazepam IV and referred to medicine for admission and ongoing management of alcohol withdrawal. Admission Exam Per Admitting Provider Constitutional: WD/WN, vitals as above + frail appearing Eyes: PERRL, conjunctivae normal, anicteric sclerae EOM intact bilaterally ENMT: Mouth: + dry oral mucous membranes Neck: trachea midline, no thyromegaly Respiratory: normal respiratory effort, lungs clear to auscultation Cardiovascular: Rate/Rhythm: regular rhythm and + tachycardic Heart Sounds: no murmur Extremities: normal capillary refill; no calf tenderness and no pedal edema Gastrointestinal (Abdomen): normal bowel sounds, soft, nontender, no hepatosplenomegaly Musculoskeletal: no cyanosis or clubbing, extremities motor strength 5/5 Skin: no rashes, warm and dry Neurologic: moves all extremities and awake; no focal motor deficits and not confused Motor/Sensory: + tremor (b/l) Psychiatric: Orientation: alert and oriented x 3 Affect: + anxious affect Mood: + anxious mood Principal Diagnosis Alcohol withdrawal, anxiety, alcohol use disorder Discharge Exam General: Well-appearing, alert, interactive, and in no acute distress. HEENT: Normocephalic, atraumatic. EOM intact. Good conjugate gaze. Nares patent. Moist mucosal membranes. Neck: Supple. No lymphadenopathy. Normal ROM. CV: Regular rate and rhythm. Normal S1 and S2. No murmurs gallops or rubs. Respiratory: Normal respiratory effort. Lungs clear to auscultation bilaterally. No crackles, rhonchi, or wheezes. Abdomen: Soft, nondistended abdomen. No bruits heard on auscultation. No tenderness to deep palpation. Extremities: Capillary refill <2 sec. 2+ dp equal bilaterally. No pedal edema. Neuro: Alert and oriented x3. Skin: Clean, dry, and intact. No rashes, bruises, or erythema. Discharge Data Allergies Allergy/AdvReac Type Severity Reaction Status Date / Time No Known Allergies Allergy Unverified 12/05/21 08:23 Consultations 12/03/21 17:32 ED Decision to Admit Stat 12/04/21 15:31 Consult Behavioral Health Liaison Routine Hospital Course (1) Alcohol withdrawal: Ofe is a 66 year old female with past medical history of anxiety, depression, alcohol dependence w/ hx of alcohol withdrawal seizures. Alcohol withdrawal/dependence -Last drink morning of 12/03/21, drank 9 beers/day. -Alcohol level <10 on admission. -Prior history of alcohol withdrawal seizures, admitted to PCU. -Cont. Thiamine 100mg daily, Folate 1mg daily. -AWSS protocol. Librium taper completed. Tolerating gabapentin, inc. to 300mg TID. -Discussed starting naltrexone, pt amenable. Started naltrexone 50mg daily. -Psych Liaison: [facility] can accept patient for outpatient counseling, pt will call Wednesday. -Still very stressed and anxious about going back to drinking if she went home. Amenable to inpatient rehab which would be ideal for discharge. Patient will call inpatient rehab facilities for bed placement. Currently waiting for approval from 3 facilities. -Per dependency case manager: [facility] (inpatient rehab facility) can likely take her tomorrow, to be covered by [facility] as she is a Medicare patient. * Discontinued Ativan, phasing out AWSS protocol, as patient no longer in withdrawal. * Awaiting discharged. Made inpatient [facility] Anxiety -Patient in very anxious state since . -Sees [facility]. -Tolerating addition of gabapentin -Patient will require close outpatient follow up outpatient and return to grief counseling. -Carnival Worker ordered per pt request * Stopped paroxetine. Replaced with fluvoxamine 50 mg nightly. Patient tolerating well. Will continue at discharge. * Stopping gabapentin prior to discharge. HTN -BP elevated in am * Currently on home amlodipine L shoulder pain, chronic -likely due to arthritis, improved but still complains of posterior neck and L s houlder pain -Cervical, thoracic x-rays negative for acute or subacute fracture (some osteopenic, degenerative changes noted). Possible cardiovascular etiology, given abnormal EKG, radiation of shoulder pain down left arm. * Consider repeat EKG at next incidence of shoulder pain. * cont. Voltaren gel, Tylenol. DVT Prophylaxis: SCDs F/E/N/GI: Regular Code Status: Full code Dispo: MedSurg; awaiting transfer to inpatient rehab facility. (2) Anxiety: (3) Hypertension: Total Time Total Time Spent Total Time Spent (In Minutes): 60 Discharge Plan Discharge Items Patient Disposition: Transfer [facility] Reason For Visit: ALCOHOL WITHDRAWAL Discharge Diagnosis: Alcohol withdrawal, anxiety Activity: Per Instructions section Non-emergency contact: Primary Care Provider Call non-emergency contact if: you have any medication questions Follow-up/Referrals: Domingo Alberto [Primary Care Provider] - Diet: Regular Addtl Attending Provider Instructions: Ofe is a 66 year old female with past medical history of anxiety, depression, alcohol dependence w/ hx of alcohol withdrawal seizures. Alcohol withdrawal/dependence -Last drink morning of 12/03/21, drank 9 beers/day. -Alcohol level <10 on admission. -Prior history of alcohol withdrawal seizures, admitted to PCU. -Cont. Thiamine 100mg daily, Folate 1mg daily. -AWSS protocol. Librium taper completed. Tolerating gabapentin, inc. to 300mg TID. -Discussed starting naltrexone, pt amenable. Started naltrexone 50mg daily. -Psych Liaison: [facility] can accept patient for outpatient counseling, pt will call Wednesday. -Still very stressed and anxious about going back to drinking if she went home. Amenable to inpatient rehab which would be ideal for discharge. Patient will call inpatient rehab facilities for bed placement. Currently waiting for approval from 3 facilities. -Per dependency case manager: [facility] (inpatient rehab facility) can likely take her tomorrow, to be covered by [facility] as she is a Medicare patient. * Discontinued Ativan, phasing out AWSS protocol, as patient no longer in withdrawal. Patient tolerating Ativan wean well. * Stopped paroxetine. Replaced with fluvoxamine 50 mg nightly. Patient tolerating well 50 mg. Continue at discharge. Anxiety -Patient in very anxious state since . -Sees [facility]. -Now on fluvoxamine 50 mg nightly. -Tolerating addition of gabapentin, dose inc. as above -Patient will require close outpatient follow up outpatient and return to grief counseling. -Carnival Worker ordered per pt request HTN -BP elevated in am -restarted home amlodipine L shoulder pain, chronic -likely due to arthritis, improved but still complains of posterior neck and L shoulder pain -Cervical, thoracic x-rays negative for acute or subacute fracture (some osteopenic, degenerative changes noted). Possible cardiovascular etiology, given abnormal EKG, radiation of shoulder pain down left arm. * Continue Voltaren gel, Tylenol. Pending Studies at Discharge: No Stand-Alone Forms: My [facility] Medications and DC Order Prescriptions: New fluvoxamine 50 mg tablet 50 mg PO HS 30 Days Qty: 30 0RF naltrexone 50 mg tablet 50 mg PO DAILY 30 Days Qty: 30 0RF diclofenac sodium [Voltaren Arthritis Pain] 1 % gel 2 g topical QID Qty: 100 0RF Rx Instructions: apply to single elbow, wrist, shoulder, or hand; for hand includes palm/fingers/back of hand Continued amlodipine 10 mg tablet 10 mg PO QAM hydroxyzine HCl 25 mg tablet 25 mg PO BID buspirone 15 mg tablet 15 mg PO BID Discontinued paroxetine HCl 20 mg tablet 20 mg PO HS Rx Instructions: Not had for 1 week Discharge Orders: Discharge Order (Routine); Ordered 12/11/21 Ordered By: Sanjay Cantrell/Other Patient Handouts: Addiction Disease Understand Admission Data Admit Date/Time: 12/03/21 17:20 Attending Provider: Jesus Quintero Admit Provider: Nakul Horner Primary Care Provider: Domingo Alberto Other Providers: Tracey Jaffe ; Nakul Horner Other Interventions: Discharge Summary Assessment (RN) Last Done: 12/12/21 12:40 Supervising Physician Co-Signing Physician Notes I personally examined the patient and verified all patton points of history and exam, discussed case, and agree with decision making with Dr Pelaez For rehab today. Feels up to going. Vitals noted, in general she is in no physical distress but appears visibly anxious. HEENT normocephalic atraumatic mucous membranes moist. Breathing unlabored no accessory muscle use good effort. Skin shows no rashes no pallor or icterus. Neuro without focal deficits. Alcohol abuse/withdrawalnow is out of any significant alcohol withdrawal. mostly anxiety and chronic alcohol dependence management. Safe/stable for rehabplan is [facility] for [facility]hab, and then ongoing outpatient counseling/anxiety management. otherwise as above Resident Activity Tracking Resident Involvement: Resident Care Provided Care Provided: Adult Hospital Medicine
--- NOTE | 2021-12-12 18:37 | Billing Data ---
Date of Service December 12, 2021 Coding Level of Care Code D/C DAY MANAGEMENT <30 MINS
== END 2021-12-12 14:13 | DRG 897 ==
LOC: ED 14:45 → SUATTDRO 17:20 → 2E 17:20 → 3E 12-08 21:45

== ENCOUNTER 2022-05-06 12:23 | Inpatient (IN) ==
[2022-05-06] MEDS ORDERED: MULTI-VITAMIN INFUSION 10 ML, THIAMINE HCL 100 MG, FOLIC ACID 1 MG in SODIUM CHLORIDE 0... IV ONE (12:50)
[2022-05-06] MEDS ORDERED: SODIUM CHLORIDE 0.9% 500 ML IV SCH (13:00)
--- NOTE | 2022-05-06 13:13 | Emergency Department Note ---
Impression & Plan Alcohol withdrawal, Hypertension, History of seizure due to alcohol withdrawal ED Provider Note Provider: Amor Tomas MD DATE OF SERVICE: 05/06/2022 CHIEF COMPLAINT: Alcohol abuse/detox HISTORY OF PRESENT ILLNESS: Patient is a 67-year-old female history of alcohol withdrawal presenting here today reporting heavy alcohol use and requesting detox. Patient states that she has been drinking heavily for some time including last drink earlier today. Denies any significant trauma. Denies significant headache. Reports some diffuse myalgias. Denies any nausea or vomiting or significant chest pain. States she feels shaky at times. Patient states that she no longer wishes to live and wants to but cannot think of a way to end her life. Patient relays that she wants help stopping with drinking alcohol. Reports he has a history of seizures in the past but denies current hallucinations or seizures. Not eating much for the past week. Not taking home medications. Patient relays history of rehab in the past and is willing to go to rehab again today. PAST MEDICAL HISTORY: As noted above MEDICATIONS: Reviewed home medications but states not compliant. SOCIAL HISTORY: History of alcohol abuse, lives on her own PHYSICAL EXAM: GENERAL: alert and oriented in no acute distress on stretcher Head: normocephalic and atraumatic EYES: No injection, discharge or icterus. NECK: Trachea midline. Supple. ENT: Mucous membranes pink and moist. LUNGS: Airway patent. No retractions. Breath sounds clear with good air entry bilaterally. HEART: Regular tachycardic rate and rhythm. No chest wall tenderness ABDOMEN: Soft and non-tender, without guarding or rebound. SKIN: Acyanotic, warm, dry, without rashes EXTREMITIES: Without swelling, tenderness or deformity NEUROLOGICAL: No focal deficits. No aphasia. No facial droop or slurred speech. Normal strength and tone in the extremities. Sensation to gross touch normal. Psych: Flat affect endorses depression. States she does not want to be alive but denies any plan to actually harm herself. Denies wanting to harm others. Not acutely hallucinating responding to external stimuli. EK bpm normal sinus rhythm. No PVC or PAC. No acute ST segment elevation or depression with a QTc of 459. CONTINUOUS CARDIAC MONITORING: was ordered and showed a heart rate of 80s-120s bpm in normal sinus rhythm to sinus tachycardia Patient's laboratory studies and imaging reviewed. Differential includes alcohol intoxication/withdrawal, mood disorder, infection, hypoglycemia, electrolyte abnormalities, cardiac sources, intracerebral event, toxicologic, trauma, neurologic, as well as other pathologies. IMPRESSION/MEDICAL DECISION MAKING: Patient requesting detox from alcohol. Reports history of withdrawal seizure in the past. Not hallucinating currently. Recent alcohol use earlier today. Hypertensive upon arrival. Tachycardic as well. Given some Valium. Banana bag ordered. Basic blood work and electrolytes likely without severe abnormality. Negative Tylenol and aspirin level. Does report some thoughts of not wanting to be alive but not having an active plan or actively trying to kill herself at this point. Negative COVID. Is interested in alcohol rehab. No reports of significant trauma or signs of significant trauma will defer additional imaging at this point. Benign abdomen. Alcohol he minimally elevated. Significant hypertensive. States he has not been taking her home medications including her blood pressure medicine. Did discuss with case management. Does report some hopelessness and passive SI but no plan. Given her history of significant alcohol withdrawal with seizures will need medical observation before stablized and cleared for possible alcohol rehab options. DIAGNOSIS: Alcohol abuse, depression, hypertension DISPOSITION: Hospitalist will evaluate Patient was agreeable with this plan. Past Med/Surg History Medical History Alcohol dependence Alcohol withdrawal Anxiety Hypertension Family History Other Family history non-contributory Social History Smoking Status: Current every day smoker Tobacco Type: Cigarettes Cigarettes Per Day: 5-6; Hx Alcohol Use: Yes Alcohol type: beer and wine Hx Substance Use: Yes Preferred Language: [place] Islander Communication Ability: Effective Novelty Maker Required: No Beliefs That Will Affect Care: None marital status: / Current Living Situation: Alone Feels Safe at Home: Yes Assistive Devices: None Allergies Allergies Allergy/AdvReac Type Severity Reaction Status Date / Time No Known Allergies Allergy Unverified 12/05/21 08:23 Home Meds Home Medications Medication Instructions Recorded Confirmed buspirone 30 mg tablet 30 mg PO BID 05/06/22 05/06/22 hydroxyzine HCl 50 mg tablet 50 mg PO QID 05/06/22 05/06/22 mirtazapine 45 mg tablet 45 mg PO HS 05/06/22 05/06/22 naltrexone microspheres 380 mg 380 mg IM UD 05/06/22 05/06/22 intramuscular suspension,extended release (Vivitrol) paroxetine HCl 20 mg tablet 20 mg PO HS 05/06/22 05/06/22 Results & Data (ED) Vital Signs Vital Signs - 24 hr 05/06/22 12:25 05/06/22 13:08 05/06/22 13:56 Temperature 36.8 C Temperature Source Temporal Artery Scan Pulse Rate 120 H 108 H Pulse Rate from SpO2 Sensor Respiratory Rate 18 16 Respiratory Effort / Characteristics Non-Labored Spontaneous Respiratory Depth Normal Respiratory Pattern Regular Blood Pressure Blood Pressure Mean Pulse Oximetry 97 Oxygen Delivery Method Room Air Room Air Sepsis Recent Fever Within 48 Hours No Sepsis New/Unexplained Change in Mental Status No Sepsis Action Taken by Nursing No Action Required 05/06/22 13:00 05/06/22 13:00 05/06/22 13:15 Temperature Temperature Source Pulse Rate 98 H 103 H Pulse Rate from SpO2 Sensor 98 H Respiratory Rate 19 15 Respiratory Effort / Characteristics Respiratory Depth Respiratory Pattern Blood Pressure 187/91 H Blood Pressure Mean 123 Pulse Oximetry 95 Oxygen Delivery Method Sepsis Recent Fever Within 48 Hours Sepsis New/Unexplained Change in Mental Status Sepsis Action Taken by Nursing 05/06/22 13:30 05/06/22 13:30 05/06/22 13:45 Temperature Temperature Source Pulse Rate 104 H 97 H Pulse Rate from SpO2 Sensor Respiratory Rate 19 16 Respiratory Effort / Characteristics Respiratory Depth Respiratory Pattern Blood Pressure 184/91 H Blood Pressure Mean 122 Pulse Oximetry Oxygen Delivery Method Sepsis Recent Fever Within 48 Hours Sepsis New/Unexplained Change in Mental Status Sepsis Action Taken by Nursing 05/06/22 14:00 05/06/22 14:00 05/06/22 14:00 Temperature Temperature Source Pulse Rate 87 Pulse Rate from SpO2 Sensor Respiratory Rate 24 Respiratory Effort / Characteristics Respiratory Depth Respiratory Pattern Blood Pressure 142/74 H 142/74 H Blood Pressure Mean 96 96 Pulse Oximetry Oxygen Delivery Method Sepsis Recent Fever Within 48 Hours Sepsis New/Unexplained Change in Mental Status Sepsis Action Taken by Nursing 05/06/22 14:15 05/06/22 14:47 05/06/22 15:00 Temperature Temperature Source Pulse Rate 89 89 Pulse Rate from SpO2 Sensor 89 Respiratory Rate 17 19 Respiratory Effort / Characteristics Respiratory Depth Respiratory Pattern Blood Pressure 200/113 H Blood Pressure Mean 142 Pulse Oximetry 95 Oxygen Delivery Method Sepsis Recent Fever Within 48 Hours Sepsis New/Unexplained Change in Mental Status Sepsis Action Taken by Nursing 05/06/22 15:00 05/06/22 15:09 05/06/22 15:09 Temperature Temperature Source Pulse Rate 89 93 H Pulse Rate from SpO2 Sensor 88 94 H Respiratory Rate 21 15 Respiratory Effort / Characteristics Respiratory Depth Respiratory Pattern Blood Pressure 193/92 H Blood Pressure Mean 125 Pulse Oximetry 98 98 Oxygen Delivery Method Sepsis Recent Fever Within 48 Hours Sepsis New/Unexplained Change in Mental Status Sepsis Action Taken by Nursing 05/06/22 15:15 05/06/22 15:24 05/06/22 15:24 Temperature Temperature Source Pulse Rate 91 H 96 H Pulse Rate from SpO2 Sensor 92 H 95 H Respiratory Rate 19 22 Respiratory Effort / Characteristics Respiratory Depth Respiratory Pattern Blood Pressure 177/94 H Blood Pressure Mean 121 Pulse Oximetry 97 98 Oxygen Delivery Method Sepsis Recent Fever Within 48 Hours Sepsis New/Unexplained Change in Mental Status Sepsis Action Taken by Nursing 05/06/22 15:30 05/06/22 15:30 05/06/22 15:45 Temperature Temperature Source Pulse Rate 90 92 H Pulse Rate from SpO2 Sensor 91 H 91 H Respiratory Rate 20 17 Respiratory Effort / Characteristics Respiratory Depth Respiratory Pattern Blood Pressure 210/91 H Blood Pressure Mean 130 Pulse Oximetry 97 98 Oxygen Delivery Method Sepsis Recent Fever Within 48 Hours Sepsis New/Unexplained Change in Mental Status Sepsis Action Taken by Nursing 05/06/22 16:00 05/06/22 16:00 05/06/22 16:15 Temperature Temperature Source Pulse Rate 90 101 H Pulse Rate from SpO2 Sensor 92 H 100 H Respiratory Rate 18 25 H Respiratory Effort / Characteristics Respiratory Depth Respiratory Pattern Blood Pressure 182/89 H Blood Pressure Mean 120 Pulse Oximetry 97 95 Oxygen Delivery Method Sepsis Recent Fever Within 48 Hours Sepsis New/Unexplained Change in Mental Status Sepsis Action Taken by Nursing 05/06/22 16:30 05/06/22 16:30 05/06/22 16:45 Temperature Temperature Source Pulse Rate 97 H 101 H Pulse Rate from SpO2 Sensor 96 H 101 H Respiratory Rate 15 26 H Respiratory Effort / Characteristics Respiratory Depth Respiratory Pattern Blood Pressure 186/117 H Blood Pressure Mean 140 Pulse Oximetry 96 97 Oxygen Delivery Method Sepsis Recent Fever Within 48 Hours Sepsis New/Unexplained Change in Mental Status Sepsis Action Taken by Nursing 05/06/22 17:00 05/06/22 17:00 05/06/22 17:15 Temperature Temperature Source Pulse Rate 95 H 92 H Pulse Rate from SpO2 Sensor 94 H 92 H Respiratory Rate 17 16 Respiratory Effort / Characteristics Respiratory Depth Respiratory Pattern Blood Pressure 199/92 H Blood Pressure Mean 127 Pulse Oximetry 97 98 Oxygen Delivery Method Sepsis Recent Fever Within 48 Hours Sepsis New/Unexplained Change in Mental Status Sepsis Action Taken by Nursing 05/06/22 17:30 05/06/22 17:47 05/06/22 18:00 Temperature Temperature Source Pulse Rate 94 H 100 H 102 H Pulse Rate from SpO2 Sensor 107 H 100 H Respiratory Rate 19 23 23 Respiratory Effort / Characteristics Respiratory Depth Respiratory Pattern Blood Pressure Blood Pressure Mean Pulse Oximetry 86 L 97 Oxygen Delivery Method Sepsis Recent Fever Within 48 Hours Sepsis New/Unexplained Change in Mental Status Sepsis Action Taken by Nursing 05/06/22 18:11 05/06/22 18:11 Temperature Temperature Source Pulse Rate 93 H Pulse Rate from SpO2 Sensor 93 H Respiratory Rate 17 Respiratory Effort / Characteristics Respiratory Depth Respiratory Pattern Blood Pressure 207/93 H Blood Pressure Mean 131 Pulse Oximetry 96 Oxygen Delivery Method Sepsis Recent Fever Within 48 Hours Sepsis New/Unexplained Change in Mental Status Sepsis Action Taken by Nursing Laboratory Data 05/06/22 13:28 05/06/22 13:28 Lab Results 05/06/22 05/06/22 05/06/22 Range/Units 13:28 13:28 13:28 WBC 6.64 (4.8-10.8) K/ul RBC 4.55 (4.20-5.40) M/uL Hgb 13.9 (12.0-16.0) g/dl Hct 39.6 (37.0-47.0) % MCV 87.0 (80.0-100.0) fL MCH 30.5 (25.0-34.0) pg MCHC 35.1 (32.0-36.0) g/dL RDW Std Deviation 42.5 (36.4-46.3) fL RDW Coeff of Vignesh 13.3 (11.5-14.5) % Plt Count 241 (130-400) K/uL MPV 9.0 L (9.4-12.4) fL Immature Gran % (Auto) 0.3 % Neut % (Auto) 60.8 % Lymph % (Auto) 32.2 % [place] % (Auto) 6.2 % Eos % (Auto) 0.2 % Baso % (Auto) 0.3 % Neut # (Auto) 4.04 (1.40-6.50) K/uL Lymph # (Auto) 2.14 (1.2-3.4) K/uL [place] # (Auto) 0.41 (0.11-0.59) K/uL Eos # (Auto) 0.01 (0-0.50) K/uL Baso # (Auto) 0.02 (0-0.2) K/uL Immature Gran # (Auto) 0.02 (0.01-0.20) K/uL Sodium 137 (136-145) mmol/L Potassium 3.4 L (3.5-5.1) mmol/L Chloride 103 (98-107) mmol/L Carbon Dioxide 22 (21-32) mmol/L Anion Gap 12 H (3-11) BUN 7 (6-23) mg/dl Creatinine 0.60 (0.6-1.2) mg/dl Est Cr Clr Drug Dosing 76.3 ml/min Est GFR ( Amer) 110.1 ml/min Est GFR (Non-Af Amer) 95.0 ml/min BUN/Creatinine Ratio 11.7 (10-20) Glucose 85 (70-99(Fasting)) mg/dl Calcium 9.2 (8.5-10.1) mg/dl Magnesium 1.7 (1.7-2.4) mg/dl Total Bilirubin 0.4 (0.2-1.0) mg/dl AST 16 (13-39) U/L ALT 7 (7-52) U/L Alkaline Phosphatase 144 H (34-104) U/L Total Protein 7.6 (6.0-8.3) gm/dl Albumin 4.5 (3.4-5.0) gm/dl Globulin 3.1 (2.5-4.0) gm/dl Albumin/Globulin Ratio 1.5 (0.9-2) TSH 1.715 (0.300-4.500) uIu/ml Urine Color Urine Appearance (Clear) Urine pH (4.5-7.5) Ur Specific [place] (1.000-1.030) Urine Protein (Negative) Urine Glucose (UA) (Negative) Urine Ketones (Negative) Urine Blood (Negative) Urine Nitrite (Negative) Urine Bilirubin (Negative) Urine Urobilinogen (Negative) Ur Leukocyte Esterase (Negative) Salicylates (3.0-30) mg/dl Urine Opiates Screen (Neg) Ur Methadone, Qual (Neg) Acetaminophen (10-30) ug/ml Urine Barbiturates (Neg) Ur Phencyclidine (PCP) (Neg) U Amphetamin/Meth Scrn (Neg) MDMA (Ecstasy) Screen (Neg) U Benzodiazepines Scrn (Neg) Ur Cocaine Metabolite (Neg) U Marijuana (THC) Screen (Neg) Ethyl Alcohol mg/dL (<10.0) mg/dl SARS-CoV-2, RNA, NAAT (NEGATIVE) 05/06/22 05/06/22 05/06/22 Range/Units 13:28 13:28 14:26 WBC (4.8-10.8) K/ul RBC (4.20-5.40) M/uL Hgb (12.0-16.0) g/dl Hct (37.0-47.0) % MCV (80.0-100.0) fL MCH (25.0-34.0) pg MCHC (32.0-36.0) g/dL RDW Std Deviation (36.4-46.3) fL RDW Coeff of Vignesh (11.5-14.5) % Plt Count (130-400) K/uL MPV (9.4-12.4) fL Immature Gran % (Auto) % Neut % (Auto) % Lymph % (Auto) % [place] % (Auto) % Eos % (Auto) % Baso % (Auto) % Neut # (Auto) (1.40-6.50) K/uL Lymph # (Auto) (1.2-3.4) K/uL [place] # (Auto) (0.11-0.59) K/uL Eos # (Auto) (0-0.50) K/uL Baso # (Auto) (0-0.2) K/uL Immature Gran # (Auto) (0.01-0.20) K/uL Sodium (136-145) mmol/L Potassium (3.5-5.1) mmol/L Chloride (98-107) mmol/L Carbon Dioxide (21-32) mmol/L Anion Gap (3-11) BUN (6-23) mg/dl Creatinine (0.6-1.2) mg/dl Est Cr Clr Drug Dosing ml/min Est GFR ( Amer) ml/min Est GFR (Non-Af Amer) ml/min BUN/Creatinine Ratio (10-20) Glucose (70-99(Fasting)) mg/dl Calcium (8.5-10.1) mg/dl Magnesium (1.7-2.4) mg/dl Total Bilirubin (0.2-1.0) mg/dl AST (13-39) U/L ALT (7-52) U/L Alkaline Phosphatase (34-104) U/L Total Protein (6.0-8.3) gm/dl Albumin (3.4-5.0) gm/dl Globulin (2.5-4.0) gm/dl Albumin/Globulin Ratio (0.9-2) TSH (0.300-4.500) uIu/ml Urine Color Urine Appearance (Clear) Urine pH (4.5-7.5) Ur Specific [place] (1.000-1.030) Urine Protein (Negative) Urine Glucose (UA) (Negative) Urine Ketones (Negative) Urine Blood (Negative) Urine Nitrite (Negative) Urine Bilirubin (Negative) Urine Urobilinogen (Negative) Ur Leukocyte Esterase (Negative) Salicylates < 3.0 L (3.0-30) mg/dl Urine Opiates Screen (Neg) Ur Methadone, Qual (Neg) Acetaminophen < 3 L (10-30) ug/ml Urine Barbiturates (Neg) Ur Phencyclidine (PCP) (Neg) U Amphetamin/Meth Scrn (Neg) MDMA (Ecstasy) Screen (Neg) U Benzodiazepines Scrn (Neg) Ur Cocaine Metabolite (Neg) U Marijuana (THC) Screen (Neg) Ethyl Alcohol mg/dL 80.5 H (<10.0) mg/dl SARS-CoV-2, RNA, NAAT NEGATIVE (NEGATIVE) 05/06/22 05/06/22 Range/Units 14:47 14:47 WBC (4.8-10.8) K/ul RBC (4.20-5.40) M/uL Hgb (12.0-16.0) g/dl Hct (37.0-47.0) % MCV (80.0-100.0) fL MCH (25.0-34.0) pg MCHC (32.0-36.0) g/dL RDW Std Deviation (36.4-46.3) fL RDW Coeff of Vignesh (11.5-14.5) % Plt Count (130-400) K/uL MPV (9.4-12.4) fL Immature Gran % (Auto) % Neut % (Auto) % Lymph % (Auto) % [place] % (Auto) % Eos % (Auto) % Baso % (Auto) % Neut # (Auto) (1.40-6.50) K/uL Lymph # (Auto) (1.2-3.4) K/uL [place] # (Auto) (0.11-0.59) K/uL Eos # (Auto) (0-0.50) K/uL Baso # (Auto) (0-0.2) K/uL Immature Gran # (Auto) (0.01-0.20) K/uL Sodium (136-145) mmol/L Potassium (3.5-5.1) mmol/L Chloride (98-107) mmol/L Carbon Dioxide (21-32) mmol/L Anion Gap (3-11) BUN (6-23) mg/dl Creatinine (0.6-1.2) mg/dl Est Cr Clr Drug Dosing ml/min Est GFR ( Amer) ml/min Est GFR (Non-Af Amer) ml/min BUN/Creatinine Ratio (10-20) Glucose (70-99(Fasting)) mg/dl Calcium (8.5-10.1) mg/dl Magnesium (1.7-2.4) mg/dl Total Bilirubin (0.2-1.0) mg/dl AST (13-39) U/L ALT (7-52) U/L Alkaline Phosphatase (34-104) U/L Total Protein (6.0-8.3) gm/dl Albumin (3.4-5.0) gm/dl Globulin (2.5-4.0) gm/dl Albumin/Globulin Ratio (0.9-2) TSH (0.300-4.500) uIu/ml Urine Color Yellow Urine Appearance Clear (Clear) Urine pH 5.5 (4.5-7.5) Ur Specific [place] 1.004 (1.000-1.030) Urine Protein Negative (Negative) Urine Glucose (UA) Negative (Negative) Urine Ketones Negative (Negative) Urine Blood Negative (Negative) Urine Nitrite Negative (Negative) Urine Bilirubin Negative (Negative) Urine Urobilinogen Negative (Negative) Ur Leukocyte Esterase Negative (Negative) Salicylates (3.0-30) mg/dl Urine Opiates Screen Neg (Neg) Ur Methadone, Qual Neg (Neg) Acetaminophen (10-30) ug/ml Urine Barbiturates Neg (Neg) Ur Phencyclidine (PCP) Neg (Neg) U Amphetamin/Meth Scrn Neg (Neg) MDMA (Ecstasy) Screen Neg (Neg) U Benzodiazepines Scrn Neg (Neg) Ur Cocaine Metabolite Neg (Neg) U Marijuana (THC) Screen Neg (Neg) Ethyl Alcohol mg/dL (<10.0) mg/dl SARS-CoV-2, RNA, NAAT (NEGATIVE) Administered Medications Lactated Ringer's (Lr) 1,000 mls @ 100 mls/hr IV .Q10H HUEY Stop: 05/07/22 12:59 Last Admin: 05/06/22 18:10 Dose: 100 mls/hr Documented By: OL Potassium Chloride (K Raymundo / Wtr) 10 meq in 100 mls @ 100 mls/hr IV Q1H HUEY Stop: 05/06/22 20:29 Last Admin: 05/06/22 17:55 Dose: 100 mls/hr Documented By: OL Magnesium Sulfate/Dextrose (Magnesium Sulfate / D5w) 1 gm in 100 mls @ 50 mls/hr IV ONE ONE Stop: 05/06/22 19:21 Last Admin: 05/06/22 17:56 Dose: 50 mls/hr Documented By: OL Nicotine (Nicotine 21 Mg/24 Hr Tdsy) 21 mg TD QAM HUEY Stop: 06/05/22 16:59 Last Admin: 05/06/22 18:10 Dose: 21 mg Documented By: OL Discontinued Medications Diazepam (Diazepam 5 Mg/Ml Inj 10ml Vial) 5 mg IV NOW STA Stop: 05/06/22 12:51 Last Admin: 05/06/22 13:42 Dose: 5 mg Documented By: BCN Diazepam (Diazepam 5 Mg/Ml Inj 10ml Vial) 5 mg IV NOW STA Stop: 05/06/22 15:45 Last Admin: 05/06/22 16:08 Dose: 5 mg Documented By: DAMI Sodium Chloride (Nss) 500 mls @ 999 mls/hr IV .Q31M HUEY Stop: 05/06/22 13:30 Last Infusion: 05/06/22 14:17 Dose: 0 mls/hr Documented By: Admin: 05/06/22 13:31 Dose: 999 mls/hr Documented By: DAMI Multivitamins 10 ml/ Thiamine HCl 100 mg/ Folic Acid 1 mg/Sodium Chloride 1,011.2 mls @ 1,011.2 mls/hr IV .Q1H ONE Stop: 05/06/22 13:49 Last Infusion: 05/06/22 14:48 Dose: 0 mls/hr Documented By: Admin: 05/06/22 13:42 Dose: 1,011.2 mls/hr Documented By: DAMI Discharge Plan Visit Data Chief Complaint: Detox Request Stated Complaint: ALCOHOLIC NEEDS DETOX ED Provider: Amor Tomas Discharge Problem: Alcohol withdrawal, Hypertension, History of seizure due to alcohol withdrawal Patient Disposition: Being Evaluated by Hospitalist Forms Stand Alone Forms: [facility], Suicide Prevention Resources Prescriptions Prescriptions: No Action hydroxyzine HCl 50 mg tablet 50 mg PO QID paroxetine HCl 20 mg tablet 20 mg PO HS buspirone 30 mg tablet 30 mg PO BID mirtazapine 45 mg tablet 45 mg PO HS Vivitrol 380 mg suspension,extended rel recon 380 mg IM UD Referrals Referrals: Domingo Alberto [Primary Care Provider] -
[2022-05-06 14:02] LABS: Basophils # (auto) 0.02 K/uL (0-0.2); Basophils % (auto) 0.3 %; Eosinophils # (auto) 0.01 K/uL (0-0.50); Eosinophils % (auto) 0.2 %; Hematocrit (blood only) 39.6 % (37.0-47.0); Hemoglobin 13.9 g/dl (12.0-16.0); Immature Granulocytes # (auto) 0.02 K/uL (0.01-0.20); Immature Granulocytes % (auto) 0.3 %; Lymphocytes # (auto) 2.14 K/uL (1.2-3.4); Lymphocytes % (auto) 32.2 %; Mean Corpuscular Hemoglobin 30.5 pg (25.0-34.0); Mean Corpuscular Hgb Conc 35.1 g/dL (32.0-36.0); Monocytes # (auto) 0.41 K/uL (0.11-0.59); Monocytes % (auto) 6.2 %; Neutrophils # (auto) 4.04 K/uL (1.40-6.50); Neutrophils % (auto) 60.8 %; Platelet Count 241 K/uL (130-400); RDW Coefficient of Variation 13.3 % (11.5-14.5); RDW Standard Deviation 42.5 fL (36.4-46.3); Red Blood Count 4.55 M/uL (4.20-5.40); White Blood Count 6.64 K/ul (4.8-10.8)
[2022-05-06 14:14] LABS: Acetaminophen < 3 ug/ml (10-30); Salicylate < 3.0 mg/dl (3.0-30)
[2022-05-06 14:22] LABS: Albumin Globulin Ratio 1.5 (0.9-2); Albumin Level 4.5 gm/dl (3.4-5.0); BUN Creatinine Ratio 11.7 (10-20); Bilirubin,Total 0.4 mg/dl (0.2-1.0); Calcium 9.2 mg/dl (8.5-10.1); Creatinine Clr Calc Pharmacy 76.3 ml/min; Est GFR (African American) 110.1 ml/min; Globulin 3.1 gm/dl (2.5-4.0); Magnesium 1.7 mg/dl (1.7-2.4); Potassium 3.4 mmol/L (3.5-5.1); Total Protein 7.6 gm/dl (6.0-8.3)
[2022-05-06 15:14] LABS: Appearance Urine Clear (Clear); Bilirubin Urine Negative (Negative); Blood Urine Negative (Negative); Color Urine Yellow; Glucose Urine UA Negative (Negative); Ketones Urine Negative (Negative); Leukocyte Esterase Urine Negative (Negative); Nitrite Urine Negative (Negative); Protein Urine Negative (Negative); Specific Gravity Urine 1.004 (1.000-1.030); Urobilinogen Urine Negative (Negative); pH Urine 5.5 (4.5-7.5)
[2022-05-06 16:16] LABS: Amphetamines+Metham, Urine Neg (Neg); Barbiturates, Urine Neg (Neg); Benzodiazepine, Urine Neg (Neg); Cocaine, Urine Neg (Neg); MDMA (Ecstacy), Urine Neg (Neg); Methadone, Urine Neg (Neg); Opiate, Urine Neg (Neg); Phencyclidine, Urine Neg (Neg)
--- NOTE | 2022-05-06 16:36 | History & Physical Report ---
Date of Service May 06, 2022 Assessment & Plan (1) Alcohol withdrawal: Plan: -Admit to the PCU on tele -The patient is currently afebrile, Hypertensive at 182/89, and stable on RA -Patient appears to be going into active alcohol withdrawal despite her last drink being earlier today -She is high risk due to previous history of withdrawal seizures -S/P 10 mg of valium, a banana bag, and 1L NSS in the ED -Will start the active AWSS protocol with IV ativan and will start her on Librium now -Seizure precautions ordered -Will continue IV hydration with LR at 100 mL/hr x 2 bags -Will continue with IV thiamine 100 mg TID for 2 days, can then taper to oral and daily dosing -Continue daily PO folic acid -Patient is interested in rehab but does not want to go back to the same facility she was at in [place] last time -AM CBC, CMP, Mag -BL SCDS and Sub-Q lovenox for DVT PPX (2) Hypokalemia: Plan: -Noted to be 3.4 today -Likely due to her drinking and poor intake -Mag was low-normal at 1.7 -Will give 10 meq IV KCL x 3 bags and 1 mg IV mag on admission -Continue to monitor AM CMP and mag (3) Anxiety: Plan: -Patient appears to have significant anxiety at baseline which has not been well-controlled leading to her drinking -Will continue HS Paxil but will hold HS remeron for now to avoid over-sedation (4) Hypertension: Plan: -Currently hypertensive at 182/89 but asymptomatic -Not currently on outpatient antihypertensives -Likely due to her active alcohol withdrawal -Will re-evaluate after she Librium and ativan -Continue to monitor Plan The patient was discussed with Dr. Horner at the time of the admission History of Present Illness Chief Complaint: Alcohol withdrawal Primary Care Provider: Domingo Alberto Ofe is a 67 year old female with a PMH significant for current alcohol abuse, hx of previous withdrawal seizure, anxiety, tobacco abuse, HTN, and sinus tachycardia who presented to the [facility] ED on 05/06/22 with a chief complaint of alcohol withdrawal. In the ED the patient was found to be afebrile, hemodynamically stable, and stable on RA. Labs were remarkable for a CBC WNL, stable cr at 0.60, potassium of 3.4, otherwise stable electrolytes, alk phos of 144 otherwise stable LFTs, negative UA, alcohol level of 80, negative urine tox screen and negative covid screen. Prior to admission the patient was given a banana bag, 10 mg of Valium and 1L NSS. At the time of the exam the patient was resting in bed and appears anxious and mildly tremulous with her father sitting bedside. She states that she has very bad anxiety of which she is seen at [facility] in [place] but also uses alcohol to cope with her anxiety. She states that her drinking has gotten "out of hand" recently and she would like to try and stop drinking again. She has been drinking both beer and mixed drinks with Whiskey recently. Yesterday she had approximately 9 large cans of beer. Today she was drinking mixed drink with her last drink occurring at approximately 11 am today prior to coming into the hospital. She does have a previous history of seizures with withdrawals when she lived in [place]. She tried to go to rehab in [place] previously but she began drinking shortly after leaving. She is currently a smoker and smokes approximately 1 PPD. She feels as though her tremors and withdrawal symptoms are beginning to return after receiving another dose of Valium shortly before my exam. She has recently been using the HS Remeron and Paroxetine prescribed by her Psychiatrist and has not been using the hydroxyzine and buspar as she does not feel as though they have been working. She denies current fever, chills, he adache, changes in vision, hearing, taste, and smell, auditory, visual, or tactile hallucinations, chest pain, SOB, abd pain, nausea, vomiting, dysuria, hematuria, lower extremity swelling and recent trauma. We discussed code status, she wishes to be a full code and for her father to make decisions for her if she cannot make them herself. Isaac refer to Dr. Horner's attestation for any changes to the treatment plan Allergies Allergy/AdvReac Type Severity Reaction Status Date / Time No Known Allergies Allergy Unverified 12/05/21 08:23 Home Medications Medication Instructions Recorded Confirmed Type buspirone 30 mg tablet 30 mg PO BID 05/06/22 05/06/22 History hydroxyzine HCl 50 mg tablet 50 mg PO QID 05/06/22 05/06/22 History mirtazapine 45 mg tablet 45 mg PO HS 05/06/22 05/06/22 History naltrexone microspheres 380 mg 380 mg IM UD 05/06/22 05/06/22 History intramuscular suspension,extended release (Vivitrol) paroxetine HCl 20 mg tablet 20 mg PO HS 05/06/22 05/06/22 History chlordiazepoxide HCl 10 mg capsule See Rx Instructions .Route 05/09/22 Rx .COMPLEX #12 caps folic acid 1 mg tablet 1 mg PO QAM #30 tabs 05/09/22 Rx magnesium oxide 400 mg (241.3 mg 400 mg PO BID #60 tabs 05/09/22 Rx magnesium) tablet metoprolol tartrate 25 mg tablet 25 mg PO BID #60 tabs 05/09/22 Rx thiamine HCl (vitamin B1) 100 mg 100 mg PO QAM #30 tabs 05/09/22 Rx tablet Past Med/Surg History Medical History Alcohol dependence Alcohol withdrawal Anxiety Hypertension Family History Other Family history non-contributory Social History Smoking Status: Current every day smoker Tobacco Type: Cigarettes Cigarettes Per Day: 8; Hx Alcohol Use: Yes Alcohol type: hard liquor Hx Substance Use: No Preferred Language: Fijian Communication Ability: Effective Front Desk Admin Required: No Beliefs That Will Affect Care: None marital status: / Current Living Situation: Alone Feels Safe at Home: Yes Assistive Devices: None Review of Systems Review of Systems: Denies current fever, chills, headache, changes in vision, hearing, taste, and smell, chest pain, SOB, cough, abdominal pain, nausea, vomiting, diarrhea, hematemesis, melena, dysuria, hematuria, and recent falls. All systems have been reviewed and are otherwise negative. Physical Exam Physical Exam: Physical Exam: General: In mild distress due to anxiety and withdrawal symptoms, stated age, malnourished, poor hygiene, non-toxic appearing HEENT: Normocephalic, atraumatic, no scleral icterus, pupils around round, symmetrical, and reactive to light, dry mucus membranes, very poor dentition with dental caries throughout, trachea midline, no thyromegaly Chest/Pulm: No respiratory distress, symmetrical chest expansion, expiratory wheezing noted throughout Cardiac: tachycardic rate, regular rhythm, no murmurs noted Abdomen: Negative for ascites and bruising, normoactive bowel sounds, soft, non-tender to palpation throughout Musculoskeletal: Symmetrical and without signs of acute trauma, upper and lower extremities with full ROM, no atrophy, spasticity, or flaccidity Extremities: Radial, dorsalis pedis, and posterior tibial pulses are intact and symmetrical, no edema noted in the BL LE's Skin: Warm, dry, no rashes , lesions, or scars noted Neuro: Alert and oriented to person, place, month, year, and president, no focal defects, CN II-XII tested and intact, patient is currently tremulous Psych: Appears very anxious but polite and cooperative during the exam Results & Data Results & Data ([facility]) Vital Signs (Past 12 Hours) Vital Signs Temp Pulse Resp BP Pulse Ox O2 Del Method 05/06/22 14:15 89 17 95 05/06/22 14:00 87 24 05/06/22 14:00 142/74 H 05/06/22 14:00 142/74 H 05/06/22 13:45 97 H 16 05/06/22 13:30 104 H 19 05/06/22 13:30 184/91 H 05/06/22 13:15 103 H 15 05/06/22 13:00 98 H 19 95 05/06/22 13:00 187/91 H 05/06/22 13:56 16 Room Air 05/06/22 13:08 108 H 05/06/22 12:25 36.8 C 120 H 18 97 Room Air Laboratory Results Abnormal lab results 05/06/22 05/06/22 05/06/22 Range/Units 13:28 13:28 13:28 MPV 9.0 L (9.4-12.4) fL Potassium 3.4 L (3.5-5.1) mmol/L Anion Gap 12 H (3-11) Alkaline Phosphatase 144 H (34-104) U/L Salicylates < 3.0 L (3.0-30) mg/dl Acetaminophen < 3 L (10-30) ug/ml Ethyl Alcohol mg/dL (<10.0) mg/dl 05/06/22 Range/Units 14:26 MPV (9.4-12.4) fL Potassium (3.5-5.1) mmol/L Anion Gap (3-11) Alkaline Phosphatase (34-104) U/L Salicylates (3.0-30) mg/dl Acetaminophen (10-30) ug/ml Ethyl Alcohol mg/dL 80.5 H (<10.0) mg/dl ECG Additional Comments: Normal sinus rhythm Septal infarct , age undetermined Abnormal ECG When compared with ECG of 08-DEC-2021 19:37, No significant change was found Code Status & VTE Plan Code Status Full code VTE Prophylaxis Plan VTE Prophylaxis will be ordered: Yes Supervising Physician Co-Signing Physician Notes I personally saw and examined the patient. I verified all patton points and agree with Boubacar Telles PA-C with the following exceptions and/or additions: 67 year old female presents to the ER with tremors and increased anxiety with concerns for alochol withdrawal. Prior history of alcohol withdrawal seizures. Only mild tremors when seen after diazepam given in the ER O/E A&Ox3, no acute distress, HS RRR, no murmurs, Chest CTAB, Abdo SNT, mild tremors b/l posturally A/P Alcohol withdrawal - mild symptoms at the present time however she was drinking earlier today and high risk to discharge due to history of seizures. Ativan PRN per AWSS. Does not appear to require Librium HUEY at this time. PG Care Time/CCT Total # of Minutes Spent Total Time Spent with Patient: Total time spent is greater than 50% in coordination of care (as documented) at patient's floor/unit and/or counseling patient: C[place] [address] INT INP/OBS CARE 3/75MIN Patient Type Established Medical Decision Making High Complexity Diagnoses Alcohol withdrawal F10.939 Hypokalemia E87.6 Anxiety F41.9 Hypertension I10
[2022-05-06] MEDS ORDERED: Ativan IV Alcohol Withdrawal--Active Protocol IV PRN (16:52)
[2022-05-06] MEDS ORDERED: chlordiazePOXIDE ALCOHOL WITHDRAWL 25MG PO STA (16:52)
[2022-05-06] MEDS ORDERED: LORazepam 2 MG/1 ML VIAL IV PRN ×2 (16:54)
[2022-05-06] MEDS ORDERED: ALBUT/IPRATROP 3MG/0.5MG NEB 3 ML VIAL NEB PRN (17:12)
[2022-05-06] MEDS ORDERED: MAGNESIUM SULFATE / D5W 1 GM/100 ML BAG IV ONE (17:22)
--- NOTE | 2022-05-06 17:42 | Electrocardiogram Report ---
Test Reason : Blood Pressure : / mmHG Vent. Rate : 097 BPM Atrial Rate : 097 BPM P-R Int : 134 ms QRS Dur : 090 ms QT Int : 362 ms P-R-T Axes : 068 042 031 degrees QTc Int : 459 ms Normal sinus rhythm When compared with ECG of 08-DEC-2021 19:37, No significant change was found Confirmed by Juliano Mccormack ([id number]) on 05/06/2022 5:42:17 PM Referred By: REFERRED SELF Confirmed By:Maximiliano Mccormack
[2022-05-06] MEDS: POTASSIUM CHLORIDE / WTR 10 MEQ/100 ML PLCT IV SCH ×3 (17:55→21:48)
[2022-05-06] MEDS: LACTATED RINGER'S 1,000 ML IV SCH (18:10)
[2022-05-06] MEDS: NICOTINE 21 MG/24 HR TDSY TD SCH (18:10)
[2022-05-06] MEDS: chlordiazePOXIDE HCl 25 MG CAP PO SCH ×2 (18:27→23:22)
[2022-05-06] MEDS ORDERED: INFLUENZA VACCINE HIGH DOSE PF 65+ 0.7 ML SYR IM ONE (20:11)
[2022-05-06] MEDS ORDERED: PNEUMOCOCCAL POLYSACCHARIDES 25 MCG/0.5 ML VIAL/SYR IM ONE (20:11)
[2022-05-06] MEDS: THIAMINE HCL 100 MG in SYRINGE 9 ML IV SCH (20:39)
[2022-05-06] MEDS: PARoxetine HCL 20 MG TAB PO SCH (20:39)
[2022-05-06] MEDS: ENOXAPARIN INJ 40 MG/0.4 ML SYR SQ SCH (20:40)
[2022-05-06] MEDS: LORazepam 2 MG/1 ML VIAL IV PRN (20:53)
[2022-05-06] MEDS: FAMOTIDINE 10 MG TABLET PO SCH (20:53)
[2022-05-07] MEDS: chlordiazePOXIDE HCl 25 MG CAP PO SCH (05:42)
[2022-05-07 07:12] LABS: Hematocrit (blood only) 38.2 % (37.0-47.0); Hemoglobin 13.5 g/dl (12.0-16.0); Mean Corpuscular Hemoglobin 31.1 pg (25.0-34.0); Mean Corpuscular Hgb Conc 35.3 g/dL (32.0-36.0); Mean Platelet Volume 8.8 fL (9.4-12.4); Platelet Count 213 K/uL (130-400); RDW Coefficient of Variation 13.5 % (11.5-14.5); RDW Standard Deviation 43.9 fL (36.4-46.3); Red Blood Count 4.34 M/uL (4.20-5.40); White Blood Count 5.11 K/ul (4.8-10.8)
[2022-05-07 07:47] LABS: Albumin Globulin Ratio 1.4 (0.9-2); Albumin Level 3.7 gm/dl (3.4-5.0); BUN Creatinine Ratio 12.1 (10-20); Bilirubin,Total 0.9 mg/dl (0.2-1.0); Calcium 8.7 mg/dl (8.5-10.1); Creatinine Clr Calc Pharmacy 69.4 ml/min; Est GFR (African American) 106.7 ml/min; Est GFR (Non-African American) 92.1 ml/min; Globulin 2.7 gm/dl (2.5-4.0); Magnesium 1.6 mg/dl (1.7-2.4); Potassium 3.6 mmol/L (3.5-5.1); Total Protein 6.4 gm/dl (6.0-8.3)
[2022-05-07] MEDS: LACTATED RINGER'S 1,000 ML IV SCH (07:48)
[2022-05-07] MEDS: NICOTINE 21 MG/24 HR TDSY TD SCH (08:14)
[2022-05-07] MEDS: FOLIC ACID 1 MG TAB PO SCH (08:16)
[2022-05-07] MEDS: FAMOTIDINE 10 MG TABLET PO SCH (08:16)
[2022-05-07] MEDS: MAGNESIUM OXIDE 400 MG TAB PO SCH ×2 (08:27→20:36)
[2022-05-07] MEDS: THIAMINE HCL 100 MG in SYRINGE 9 ML IV SCH (08:27)
[2022-05-07] MEDS: METOPROLOL TARTRATE 25 MG TAB PO SCH ×2 (09:07→20:36)
[2022-05-07] MEDS: LORazepam 2 MG/1 ML VIAL IV PRN ×3 (11:40→20:35)
--- NOTE | 2022-05-07 13:31 | Hospitalist Progress Note ---
Date of Service May 07, 2022 Assessment & Plan (1) Alcohol withdrawal: Plan: Stable overall. Continue Librium at 10 mg 3 times a day dosage. We will taper off as an outpatient. AWSS protocol in place. She no longer needs IV fluids. Supportive care. Vitamin supplementation (2) Hypokalemia: Plan: Corrected. Serial labs (3) Anxiety: Plan: Currently treated with Librium scheduled dosing. Supportive care. (4) Hypertension: Plan: Now started on metoprolol. We will monitor. Continue telemetry. (5) Hypomagnesemia: Plan: Continue replacement therapy. Serial labs Plan Anticipate eventual discharge to home Admission and Anticipated Discharge Date Admission Date: May 06, 2022 Subjective Alert and oriented. No acute distress. No active withdrawal symptoms. Librium dosage adjusted and she is now on metoprolol for better blood pressure and heart rate control. Magnesium supplementation continues. Review of Systems Review of Systems: Constitutional-no fever or chills ENT-no blurred vision, no double vision, no epistaxis, no sore throat Respiratory-no cough, no wheezing, no shortness of breath Cardiac-no palpitations, no chest pain, no syncope GI-no nausea, vomiting, diarrhea, melena, hematochezia -no urinary retention, no urinary incontinence, no dysuria, no hematuria Musculoskeletal-no joint pain, no muscle tenderness Skin-no bruising, no rashes, no pruritus Neuro-no isolated weakness, no paresthesia, no weakness Psych-no depression, no anxiety Physical Exam Physical Exam: General-alert and oriented x3, no fevers, no chills HEENT-head atraumatic and normocephalic, pupils equal and reactive to light, extraocular muscles intact Neck-no lymphadenopathy or thyromegaly, trachea midline Chest-clear to auscultation percussion. No rales wheezing or rhonchi Cardiac-regular rate and rhythm, normal S1 and S2 Abdomen-normal bowel sounds, nontender, no hepatosplenomegaly Extremities-no cyanosis, clubbing, or edema Neuro-cranial nerves II through XII intact, motor and sensory function within normal limits, strength symmetrical , no focal deficits Psych-normal affect, normal mood Results & Data Results & Data ([facility]) Vital Signs (Past 12 Hours) Vital Signs Temp Pulse Pulse Resp BP Pulse Ox O2 Del Method 05/07/22 11:12 36.7 C 96 H 18 154/88 H 95 Room Air 05/07/22 07:25 36.7 C 84 18 166/79 H 95 Room Air 05/07/22 07:23 83 05/07/22 03:26 36.5 C 83 18 149/79 H 96 Room Air Laboratory Results 05/07/22 06:45 05/07/22 06:45 PG Care Time/CCT Total # of Minutes Spent Total Time Spent with Patient: Total time spent is greater than 50% in coordination of care (as documented) at patient's floor/unit and/or counseling patient: Coding Level of Care Code 62933 SUB INP/OBS CARE 3/50MIN Diagnoses Alcohol withdrawal F10.930 Complication of substance-induced condition: uncomplicated Hypokalemia E87.6 Anxiety F41.9 Hypertension I10 Hypertension type: unspecified Hypomagnesemia E83.42 (1) Alcohol withdrawal Complication of substance-induced condition: uncomplicated Qualified Code(s): F10.930 - Alcohol use, unspecified with withdrawal, uncomplicated (4) Hypertension Hypertension type: unspecified Qualified Code(s): I10 - Essential (primary) hypertension
[2022-05-07] MEDS ORDERED: ACETAMINOPHEN 325 MG TAB PO PRN (19:58)
[2022-05-07] MEDS: ENOXAPARIN INJ 40 MG/0.4 ML SYR SQ SCH (20:35)
[2022-05-07] MEDS: PARoxetine HCL 20 MG TAB PO SCH (20:36)
[2022-05-08 07:28] LABS: Hematocrit (blood only) 38.6 % (37.0-47.0); Hemoglobin 13.8 g/dl (12.0-16.0); Mean Corpuscular Hemoglobin 30.8 pg (25.0-34.0); Mean Corpuscular Hgb Conc 35.8 g/dL (32.0-36.0); Mean Corpuscular Volume 86.2 fL (80.0-100.0); Mean Platelet Volume 9.1 fL (9.4-12.4); Platelet Count 202 K/uL (130-400); RDW Coefficient of Variation 13.2 % (11.5-14.5); RDW Standard Deviation 41.8 fL (36.4-46.3); Red Blood Count 4.48 M/uL (4.20-5.40); White Blood Count 5.48 K/ul (4.8-10.8)
[2022-05-08 07:43] LABS: Albumin Globulin Ratio 1.4 (0.9-2); Albumin Level 3.7 gm/dl (3.4-5.0); Bilirubin,Total 0.6 mg/dl (0.2-1.0); Calcium 8.8 mg/dl (8.5-10.1); Creatinine Clr Calc Pharmacy 73.8 ml/min; Est GFR (African American) 108.9 ml/min; Globulin 2.6 gm/dl (2.5-4.0); Magnesium 1.7 mg/dl (1.7-2.4); Potassium 3.2 mmol/L (3.5-5.1); Total Protein 6.3 gm/dl (6.0-8.3)
[2022-05-08] MEDS: LORazepam 2 MG/1 ML VIAL IV PRN ×3 (09:00→20:03)
[2022-05-08] MEDS: MAGNESIUM OXIDE 400 MG TAB PO SCH ×2 (09:02→20:03)
[2022-05-08] MEDS: THIAMINE HCL 100 MG TAB PO SCH (09:03)
[2022-05-08] MEDS: FOLIC ACID 1 MG TAB PO SCH (09:03)
[2022-05-08] MEDS: FAMOTIDINE 10 MG TABLET PO SCH (09:03)
[2022-05-08] MEDS: METOPROLOL TARTRATE 25 MG TAB PO SCH ×2 (09:04→20:02)
[2022-05-08] MEDS: NICOTINE 21 MG/24 HR TDSY TD SCH (09:12)
[2022-05-08] MEDS ORDERED: POTASSIUM CHLORIDE CRTAB 20 MEQ TABCR PO STA (09:15)
--- NOTE | 2022-05-08 14:16 | Hospitalist Progress Note ---
Date of Service May 08, 2022 Assessment & Plan (1) Alcohol withdrawal: Plan: Stable overall. Continue Librium at 10 mg 3 times a day dosage. We will taper off as an outpatient. AWSS protocol in place. She no longer needs IV fluids. Supportive care. Vitamin supplementation (2) Hypokalemia: Plan: Continue potassium replacement. Serial labs (3) Anxiety: Plan: Currently treated with Librium scheduled dosing. Supportive care. (4) Hypertension: Plan: Now started on metoprolol. We will monitor. Continue telemetry. (5) Hypomagnesemia: Plan: Improved. Continue replacement therapy. Serial labs (6) Paranoia: Plan: Behavioral health consultation and management. Plan Anticipate eventual discharge to home Admission and Anticipated Discharge Date Admission Date: May 06, 2022 Subjective Alert and oriented. No distress. She is complaining of paranoid ideation. Behavioral health consultation requested. Potassium replacement continues. Magnesium level 1.7. Vital signs are stable. Review of Systems Review of Systems: Constitutional-no fever or chills ENT-no blurred vision, no double vision, no epistaxis, no sore throat Respiratory-no cough, no wheezing, no shortness of breath Cardiac-no palpitations, no chest pain, no syncope GI-no nausea, vomiting, diarrhea, melena, hematochezia -no urinary retention, no urinary incontinence, no dysuria, no hematuria Musculoskeletal-no joint pain, no muscle tenderness Skin-no bruising, no rashes, no pruritus Neuro-no isolated weakness, no paresthesia, no weakness Psych-no depression, no anxiety Physical Exam Physical Exam: General-alert and oriented x3, no fevers, no chills HEENT-head atraumatic and normocephalic, pupils equal and reactive to light, extraocular muscles intact Neck-no lymphadenopathy or thyromegaly, trachea midline Chest-clear to auscultation percussion. No rales wheezing or rhonchi Cardiac-regular rate and rhythm, normal S1 and S2 Abdomen-normal bowel sounds, nontender, no hepatosplenomegaly Extremities-no cyanosis, clubbing, or edema Neuro-cranial nerves II through XII intact, motor and sensory function within normal limits, strength symmetrical , no focal deficits Psych-normal affect, normal mood Results & Data Results & Data ([facility]) Vital Signs (Past 12 Hours) Vital Signs Temp Pulse Pulse Pulse Resp BP Pulse Ox 05/08/22 12:59 36.4 C L 87 18 153/81 H 94 05/08/22 11:23 36.8 C 75 18 145/72 H 96 05/08/22 07:43 36.7 C 87 16 164/75 H 92 05/08/22 07:03 78 05/08/22 02:19 36.7 C 72 20 164/83 H 95 O2 Del Method 05/08/22 12:59 Room Air 05/08/22 11:23 Room Air 05/08/22 07:43 Room Air 05/08/22 07:03 05/08/22 02:19 Room Air Laboratory Results 05/08/22 06:55 05/08/22 06:55 PG Care Time/CCT Total # of Minutes Spent Total Time Spent with Patient: Total time spent is greater than 50% in coordination of care (as documented) at patient's floor/unit and/or counseling patient: Coding Level of Care Code 93524 SUB INP/OBS CARE 3/50MIN Diagnoses Alcohol withdrawal F10.930 Complication of substance-induced condition: uncomplicated Hypokalemia E87.6 Anxiety F41.9 Hypertension I10 Hypertension type: unspecified Hypomagnesemia E83.42 Paranoia F22 (1) Alcohol withdrawal Complication of substance-induced condition: uncomplicated Qualified Code(s): F10.930 - Alcohol use, unspecified with withdrawal, uncomplicated (4) Hypertension Hypertension type: unspecified Qualified Code(s): I10 - Essential (primary) hypertension
[2022-05-08] MEDS: ENOXAPARIN INJ 40 MG/0.4 ML SYR SQ SCH (20:02)
[2022-05-08] MEDS: PARoxetine HCL 20 MG TAB PO SCH (20:03)
[2022-05-09 06:57] LABS: Hematocrit (blood only) 37.3 % (37.0-47.0); Hemoglobin 13.2 g/dl (12.0-16.0); Mean Corpuscular Hemoglobin 30.6 pg (25.0-34.0); Mean Corpuscular Hgb Conc 35.4 g/dL (32.0-36.0); Mean Corpuscular Volume 86.5 fL (80.0-100.0); Mean Platelet Volume 9.5 fL (9.4-12.4); Platelet Count 190 K/uL (130-400); RDW Coefficient of Variation 13.4 % (11.5-14.5); RDW Standard Deviation 42.8 fL (36.4-46.3); Red Blood Count 4.31 M/uL (4.20-5.40)
[2022-05-09 07:13] LABS: Albumin Globulin Ratio 1.3 (0.9-2); Albumin Level 3.6 gm/dl (3.4-5.0); BUN Creatinine Ratio 21.8 (10-20); Bilirubin,Total 0.4 mg/dl (0.2-1.0); Calcium 8.9 mg/dl (8.5-10.1); Creatinine Clr Calc Pharmacy 58.7 ml/min; Est GFR (African American) 91.8 ml/min; Est GFR (Non-African American) 79.2 ml/min; Globulin 2.8 gm/dl (2.5-4.0); Magnesium 1.7 mg/dl (1.7-2.4); Potassium 3.9 mmol/L (3.5-5.1); Total Protein 6.4 gm/dl (6.0-8.3)
[2022-05-09] MEDS: METOPROLOL TARTRATE 25 MG TAB PO SCH (07:51)
[2022-05-09] MEDS: NICOTINE 21 MG/24 HR TDSY TD SCH (07:52)
[2022-05-09] MEDS: THIAMINE HCL 100 MG TAB PO SCH (07:52)
[2022-05-09] MEDS: MAGNESIUM OXIDE 400 MG TAB PO SCH (07:52)
[2022-05-09] MEDS: FOLIC ACID 1 MG TAB PO SCH (07:52)
[2022-05-09] MEDS: FAMOTIDINE 10 MG TABLET PO SCH (07:52)
--- NOTE | 2022-05-09 11:50 | Discharge Summary ---
Date of Service May 09, 2022 Admission HPI Per Admitting Provider Ofe is a 67 year old female with a PMH significant for current alcohol abuse, hx of previous withdrawal seizure, anxiety, tobacco abuse, HTN, and sinus tachycardia who presented to the [facility] ED on 05/06/22 with a chief complaint of alcohol withdrawal. In the ED the patient was found to be afebrile, hemodynamically stable, and stable on RA. Labs were remarkable for a CBC WNL, stable cr at 0.60, potassium of 3.4, otherwise stable electrolytes, alk phos of 144 otherwise stable LFTs, negative UA, alcohol level of 80, negative urine tox screen and negative covid screen. Prior to admission the patient was given a banana bag, 10 mg of Valium and 1L NSS. At the time of the exam the patient was resting in bed and appears anxious and mildly tremulous with her father sitting bedside. She states that she has very bad anxiety of which she is seen at [facility] in [place] but also uses alcohol to cope with her anxiety. She states that her drinking has gotten "out of hand" recently and she would like to try and stop drinking again. She has been drinking both beer and mixed drinks with Whiskey recently. Yesterday she had approximately 9 large cans of beer. Today she was drinking mixed drink with her last drink occurring at approximately 11 am today prior to coming into the hospital. She does have a previous history of seizures with withdrawals when she lived in [place]. She tried to go to rehab in [place] previously but she began drinking shortly after leaving. She is currently a smoker and smokes approximately 1 PPD. She feels as though her tremors and withdrawal symptoms are beginning to return after receiving another dose of Valium shortly before my exam. She has recently been using the HS Remeron and Paroxetine prescribed by her Psychiatrist and has not been using the hydroxyzine and buspar as she does not feel as though they have been working. She denies current fever, chills, headache, changes in vision, hearing, taste, and smell, auditory, visual, or tactile hallucinations, chest pain, SOB, abd pain, nausea, vomiting, dysuria, hematuria, lower extremity swelling and recent trauma. We discussed code status, she wishes to be a full code and for her father to make decisions for her if she cannot make them herself. [place] refer to Dr. Horner's attestation for any changes to the treatment plan Principal Diagnosis Acute alcohol withdrawal, hypokalemia, hypomagnesemia, paranoia Discharge Exam General-alert and oriented x3, no fevers, no chills HEENT-head atraumatic and normocephalic, pupils equal and reactive to light, extraocular muscles intact Neck-no lymphadenopathy or thyromegaly, trachea midline Chest-clear to auscultation percussion. No rales wheezing or rhonchi Cardiac-regular rate and rhythm, normal S1 and S2 Abdomen-normal bowel sounds, nontender, no hepatosplenomegaly Extremities-no cyanosis, clubbing, or edema Neuro-cranial nerves II through XII intact, motor and sensory function within normal limits, strength symmetrical , no focal deficits Psych-normal affect, normal mood Discharge Data Allergies Allergy/AdvReac Type Severity Reaction Status Date / Time No Known Allergies Allergy Unverified 12/05/21 08:23 Consultations 05/06/22 15:51 ED Decision to Admit Stat 05/08/22 10:59 Consult Behavioral Health Liaison Routine Hospital Course (1) Alcohol withdrawal: Stable overall. Continue Librium at 10 mg 3 times a day dosage. We will taper off as an outpatient. AWSS protocol in place. Intravenous fluids have been discontinued. Oral intake is adequate. Supportive care. Vitamin supplementation (2) Hypokalemia: Corrected with potassium replacement. Serial labs (3) Anxiety: Currently treated with Librium scheduled dosing. Supportive care. (4) Hypertension: Has been started on metoprolol. We will monitor. Continue telemetry. (5) Hypomagnesemia: Resolved. Continue replacement therapy. Serial labs (6) Paranoia: Behavioral health has not been able to see the patient. She can follow-up as an outpatient. Plan Discharge to home today, May 09 Total Time Total Time Spent Total Time Spent (In Minutes): 40 minutes Discharge Plan Discharge Items Patient Disposition: Home - Self-Care Reason For Visit: ALCOHOL WITHDRAWAL Discharge Diagnosis: Acute alcohol withdrawal, paranoia, hypokalemia, hypomagnesemia Activity: Resume your previous activity Non-emergency contact: Primary Care Provider Call non-emergency contact if: you have any medication questions Follow-up/Referrals: Domingo Alberto [Primary Care Provider] - Diet: Regular Addtl Attending Provider Instructions: Metoprolol has been added for blood pressure control. Take chlordiazepoxide (Librium) in a tapering dose fashion as directed until tapered off Pending Studies at Discharge: No Stand-Alone Forms: My [facility], Smoking Cessation Medications and DC Order Prescriptions: New chlordiazepoxide HCl 10 mg Capsule See Rx Instructions .ROUTE .COMPLEX Qty: 12 0RF Rx Instructions: 10 mg orally 3 times a day for 2 days, then 10 mg twice a day for 2 days, then 10 mg once a day for 2 days, then stop metoprolol tartrate 25 mg Tablet 25 mg PO BID Qty: 60 0RF magnesium oxide 400 mg (241.3 mg magnesium) Tablet 400 mg PO BID Qty: 60 0RF folic acid 1 mg Tablet 1 mg PO QAM Qty: 30 0RF thiamine HCl (vitamin B1) 100 mg Tablet 100 mg PO QAM Qty: 30 0RF Continued hydroxyzine HCl 50 mg tablet 50 mg PO QID paroxetine HCl 20 mg tablet 20 mg PO HS buspirone 30 mg tablet 30 mg PO BID mirtazapine 45 mg tablet 45 mg PO HS Vivitrol 380 mg suspension,extended rel recon 380 mg IM UD Discharge Orders: Discharge Order (Routine); Ordered 05/09/22 Ordered By: Danilo Del Angel Admission Data Admit Date/Time: 05/06/22 16:36 Attending Provider: Danilo Del Angel Admit Provider: Nakul Horner Primary Care Provider: Domingo Alberto Other Providers: Nakul Horner Coding Level of Care Code HOSP INP/OBS DISCH >30 MIN Diagnoses Alcohol withdrawal F10.930 Complication of substance-induced condition: uncomplicated Hypokalemia E87.6 Anxiety F41.9 Hypertension I10 Hypertension type: unspecified Hypomagnesemia E83.42 Paranoia F22
[2022-05-09] MEDS ORDERED: chlordiazePOXIDE HCl 5 MG CAP PO SCH (17:00)
== END 2022-05-09 01:00 | disposition home or self-care (01) | DRG 897 ==
LOC: ED 12:23 → SUATTDRO 16:36 → 2E 16:36
DX: Z79.899 Other long term (current) drug therapy; F10.239 Alcohol dependence with withdrawal, unspecified; F22 Delusional disorders; E87.6 Hypokalemia; F17.210 Nicotine dependence, cigarettes, uncomplicated; E83.42 Hypomagnesemia; I10 Essential (primary) hypertension; F41.9 Anxiety disorder, unspecified; F32.A Depression, unspecified

== ENCOUNTER 2024-09-18 13:13 | Inpatient (IN) ==
[2024-09-18 14:02] LABS: Hematocrit (blood only) 32.6 % (37.0-47.0); Hemoglobin 11.3 g/dl (12.0-16.0); Immature Granulocytes # (auto) 0.03 K/uL (0.01-0.20); Immature Granulocytes % (auto) 0.4 %; Mean Corpuscular Hemoglobin 32.8 pg (25.0-34.0); Mean Corpuscular Volume 94.8 fL (80.0-100.0); Platelet Count 136 K/uL (130-400); RDW Standard Deviation 43.4 fL (36.4-46.3); Red Blood Count 3.44 M/uL (4.20-5.40); White Blood Count 7.25 K/ul (4.8-10.8)
[2024-09-18] MEDS: SODIUM CHLORIDE 0.9% 1,000 ML IV ONE (14:09)
[2024-09-18 14:18] LABS: Alanine Aminotransferase 65.0 U/L (7-52); Alkaline Phosphatase 107.0 U/L (34-104); Anion Gap 23.0 (3-11); Bilirubin,Total 1.3 mg/dl (0.2-1.0); Blood Urea Nitrogen 10.0 mg/dl (6-23); Calcium 8.6 mg/dl (8.6-10.3); Carbon Dioxide 16.0 mmol/L (21-32); Chloride 87.0 mmol/L (98-107); Creatinine Clr Calc Pharmacy 55.4 ml/min; Glucose 67.0 mg/dl (70-99(Fasting)); Lipase 35.0 U/L (11-82); Potassium 3.7 mmol/L (3.5-5.1); Sodium 126.0 mmol/L (136-145); Total Protein 7.2 gm/dl (6.0-8.3)
[2024-09-18 14:24] LABS: INR 0.9 (0.9-1.1); Partial Thromboplastin Time 24 Seconds (21-31); Prothrombin Time 9.9 Seconds (9.0-12.0)
--- NOTE | 2024-09-18 14:29 | CT Scan Report ---
CT SCAN OF THE BRAIN WITHOUT IV CONTRAST CLINICAL HISTORY: Fall. Intoxication. Headache. COMPARISON STUDY: No prior TECHNIQUE: Unenhanced axial CT scan of the brain is performed from the vertex to the skull base. Imag es are reviewed in the axial, sagittal, coronal planes. A dose lowering technique was utilized adheri ng to the principles of ALARA. FINDINGS: Brain parenchyma: There is age-related involutional change noting mild subcortical and periventricula r microangiopathic disease. There is no hemorrhage, mass effect, or evidence of acute territorial isc hemia by CT criteria. Costa-white matter differentiation is preserved. A chronic lacunar infarct is no [place] in the davonte. No extra-axial fluid collection is seen. Ventricles, sulci, cisterns: Prominent secondary to involutional change. Intracranial vasculature: There is atherosclerotic calcification of the cavernous carotid and vertebr al arteries. Calvarium: The skeletal structures are osteopenic. No depressed calvarial fracture is seen. Soft tissues: There is a scalp injury/hematoma at the left posterior vertex. Sinuses and mastoids: The visualized paranasal sinuses are clear. The mastoid air cells are well pneu matized. Orbits: The bony orbits are grossly intact. IMPRESSION: 1. There is no hemorrhage, mass effect, or evidence of acute territorial ischemia by CT criteria. 2. High left posterior frontal scalp injury/hematoma. ACT 112: Negative or not required by law. Electronically signed by: Jhon Manuel M.D. 09/18/2024 2:27 PM
--- NOTE | 2024-09-18 14:46 | CT Scan Report ---
CT SCAN OF THE CERVICAL SPINE CLINICAL HISTORY: Trauma. COMPARISON STUDY: Cervical spine radiographs December 07, 2021. TECHNIQUE: CT scan of the cervical spine is performed from the skull base to the upper thoracic spine . Images are reviewed in the axial, sagittal, and coronal planes. IV contrast was not administered fo r this examination. A dose lowering technique was utilized adhering to the principles of ALARA. CT DOSE: 1003.86 mGy.cm FINDINGS: Mild leftward curvature of the cervical spine is present. Reversal of the cervical lordosis is unchanged. No cervical spine fractures are present. There is moderate multilevel disc space narro wing, endplate osteophytosis and facet arthrosis within the cervical spine. No prevertebral edema. IMPRESSION: No acute cervical spine fracture or subluxation. ACT 112: Negative or not required by law. Electronically signed by: Brenden Flower M.D. 09/18/2024 2:44 PM
[2024-09-18] MEDS: LIDOCAINE 2%/EPINEPHRINE 1:100,000 20ML INFIL ONE (15:20)
--- NOTE | 2024-09-18 15:25 | History & Physical Report ---
Date of Service September 18, 2024 Assessment & Plan (1) Alcohol use disorder: (2) Hyponatremia: (3) Transaminitis: Plan 69-year-old female with a history of alcohol use presents after fall with a scalp laceration. She is hyponatremia likely from beer potomania she is with blood alcohol of 256 on presentation. Her last hospital stay for this was in April 2022 where she did well with regards to a Librium taper. We may employ Librium and gabapentin at this time and not entering the phenobarbital as we have a failure #Hyponatremia. Patiently placed on a fluid restriction likely beer Poto navi we will check a serum and urine osmolality and a random urine sodium light fluid restriction and follow sodium #Alcohol abuse/withdrawal patiently placed on low-dose gabapentin scheduled and Librium scheduled with as needed Ativan, patient given intravenous thiamine and then continued on p.o. thiamine B12 and folic acid. Given alcohol use and previous withdrawal in the past patient is at risk for severe withdrawal will initiate benzodiazepine treatment in the emergency department prior to admission # Transaminitis the patient likely has alcohol irritation to her liver. She does not have significant changes to warrant a Madrey's discriminant function was determined alcoholic hepatitis treatment at this point in time #Moderate to severe malnutrition with a BMI of 15. Patient admits to not eating much she think she was under pounds in reality she weighs 89. Will offer nutritional supplements #DVT prevention will be heparin therapy History of Present Illness Primary Care Provider: Ximena Lagos MD Patient had a fall at home with a scalp laceration presents with request for alcohol detox blood alcohol on presentation 256. Patient is also hyponatremic at 126 and has elevated LFTs consistent with possible liver irritation. She reportedly drinks 8 beers a day but most recently has been drinking right whiskey her last drink was 1/2-hour prior to presentation in April 2022 the patient sustained a detox in the hospital with Librium therapy without significant incidents however at that point time she was placed on metoprolol for blood pressure control Allergies Allergy/AdvReac Type Severity Reaction Status Date / Time No Known Allergies Allergy Unverified 04/24/24 13:47 Home Medications Medication Instructions Recorded Confirmed Type No Known Home Medications 04/24/24 09/18/24 History Past Med/Surg History Problem List (Updated 09/18/24 @ 16:18 by Semaj Reyes MD) Transaminitis Hyponatremia Anxiety Depression Alcohol use disorder (Acute) Systolic ejection murmur Medical History Drug abuse history History of seizure due to alcohol withdrawal Alcohol dependence Hypertension Surgical History H/O tubal ligation Family History Mother Breast cancer, Onset Age: 66 Brother Family history of alcohol abuse Grandfather Myocardial infarction Other Family history non-contributory Denies family history of Ovarian cancer Prostate cancer Colorectal cancer Social History Smoking Status: Never smoker Tobacco Type: Cigarettes Age Started Using Tobacco: 19; packs per day: 1; Cigarettes Per Day: 20; Second Hand Exposure: No; Do You Dip or Chew Tobacco: No; Hx Alcohol Use: Yes (f) Alcohol type: beer, wine and hard liquor Alcohol Intake Frequency: 4 or More x per/Week Alcohol Intake Frequency Comment: 2 daily Hx Substance Use: No Preferred Language: Bulgarian Communication Ability: Effective Book Packer Required: No Beliefs That Will Affect Care: None marital status: / Current Living Situation: Alone Feels Safe at Home: Yes Diet: regular caffeine: Yes Dental Care, Regularly: No Physical Activity Frequency: Daily Physical Activity Frequency Comment: walks the dog Seatbelt Use: never Sunscreen Use: No Assistive Devices: Contacts and Glasses Review of Systems Review of Systems: Mild distress and fatigue, tremulous, and pressured speech contusion to scalp, cannot see if laceration as not cleaned off yet no headache, no visual changes no speech or swallowing issues no chest pain, pressure or palpitations no shortness of breath, cough or wheezes no abdominal pain, nausea or vomiting, diarrhea or constipation no dysuria, hematuria or frequency no focal joint pain or swelling no back pain, CVA tenderness or radicular pain no bruising, bleeding or rashes no focal signs of weakness or numbness or altered sensation anxiety and concern for withdrawal Physical Exam Physical Exam: The patient appeared underweight, BMI 15.8 contusion to scalp with clots cannot eval skin await ER to eval Vital signs as documented. Neck is without JVD, thyromegaly, or carotid bruits. Lungs are clear to auscultation, no focal loss of breath sounds Cardiac exam, Rhythm is regular.. No murmurs, rubs or gallops. Abdominal exam reveals normal bowel sounds, soft non tender, no masses Extremities are nonedematous and both pedal pulses are present Neurologic exam is alert and oriented, no focal loss of strength or sensation pressured speech and tremulous Skin is with scalp injury Psychologically is with concerns for anxiety from alcohol withdrawal Results & Data Results & Data Vital Signs (Past 12 Hours) Vital Signs Temp Pulse Pulse Resp BP BP Pulse Ox 09/18/24 15:00 98 H 18 181/64 H 95 09/18/24 14:26 87 14 159/96 H 97 09/18/24 13:33 128 H 09/18/24 13:28 98 09/18/24 13:26 128 H 20 161/87 H 96 09/18/24 13:26 98 09/18/24 13:17 97.9 F 142 H 20 121/77 96 O2 Del Method 09/18/24 15:00 Room Air 09/18/24 14:26 Room Air 09/18/24 13:33 09/18/24 13:28 Room Air 09/18/24 13:26 Room Air 09/18/24 13:26 Room Air 09/18/24 13:17 Room Air Laboratory Results Reviewed chemistry reviewed CBC reviewed imaging of head and neck Code Status & VTE Plan VTE Prophylaxis Plan VTE Prophylaxis will be ordered: Yes PG Care Time/CCT Total # of Minutes Spent Total Time Spent with Patient: Total time spent is greater than 50% in coordination of care (as documented) at patient's floor/unit and/or counseling patient: Coding Level of Care Code 84143 INT INP/OBS CARE 3/75MIN Diagnoses Alcohol use disorder F10.90 Hyponatremia E87.1 Transaminitis R74.01
--- NOTE | 2024-09-18 18:06 | Emergency Department Note ---
History of Present Illness General Chief complaint: Detox Request Stated complaint: NEEDS TO DETOX Time Seen by Provider: 09/18/24 13:25 History of Present Illness Provider complaint: Detox request Maximum Pain Intensity: 4 69-year-old female presents emergency department for detox request. Patient states "I want to go to rehab for detox from alcohol". Patient states she has been binge drinking. Patient states she has been binge drinking for the last week. She states she has been drinking at least 10 large beers per day. Patient states yesterday she started drinking whiskey. She states yesterday she fell and hit the back of her head. Patient states that she drank whiskey prior to arriving here. No abdominal pain. No vomiting. Home Medications Medication Instructions Recorded Confirmed Type No Known Home Medications 04/24/24 09/18/24 History Allergies Allergy/AdvReac Type Severity Reaction Status Date / Time No Known Allergies Allergy Unverified 04/24/24 13:47 Past Med/Surg History Problem List (Updated 09/18/24 @ 18:11 by Phillip Umanzor MD) Laceration of scalp (Acute) CHI (closed head injury) (Acute) Transaminitis (Acute) Hyponatremia (Acute) Anxiety Depression Alcohol use disorder (Acute) Systolic ejection murmur Medical History Drug abuse history History of seizure due to alcohol withdrawal Hypertension Surgical History H/O tubal ligation Family History Mother Breast cancer, Onset Age: 66 Brother Family history of alcohol abuse Grandfather Myocardial infarction Other Family history non-contributory Denies family history of Ovarian cancer Prostate cancer Colorectal cancer Social History Smoking Status: Never smoker Tobacco Type: Cigarettes Age Started Using Tobacco: 19; packs per day: 1; Cigarettes Per Day: 20; Second Hand Exposure: No; Do You Dip or Chew Tobacco: No; Hx Alcohol Use: Yes (f) Alcohol type: beer, wine and hard liquor Alcohol Intake Frequency: 4 or More x per/Week Alcohol Intake Frequency Comment: 2 daily Hx Substance Use: No Preferred Language: Occitan Communication Ability: Effective Basket Machine Operator Required: No Beliefs That Will Affect Care: None marital status: / Current Living Situation: Alone Feels Safe at Home: Yes Diet: regular caffeine: Yes Dental Care, Regularly: No Physical Activity Frequency: Daily Physical Activity Frequency Comment: walks the dog Seatbelt Use: never Sunscreen Use: No Assistive Devices: Contacts and Glasses Physical Exam Vital Signs Vital Signs - 24 hr 09/18/24 13:17 09/18/24 13:26 09/18/24 13:26 Temperature 36.6 C Temperature Source Temporal Artery Scan Pulse Rate 142 H Pulse Rate [Apical] 128 H Respiratory Rate 20 20 Respiratory Effort / Characteristics Non-Labored Non-Labored Spontaneous Respiratory Depth Normal Normal Respiratory Pattern Regular Blood Pressure 121/77 Blood Pressure [Left Arm] 161/87 H Blood Pressure Mean 91 Blood Pressure Mean [Left Arm] 111 Pulse Oximetry 96 98 96 Oxygen Delivery Method Room Air Room Air Room Air Sepsis Recent Fever Within 48 Hours No Sepsis New/Unexplained Change in Mental Status No Sepsis Action Taken by Nursing No Action Required 09/18/24 13:28 09/18/24 13:33 09/18/24 14:26 Temperature Temperature Source Pulse Rate 128 H Pulse Rate [Apical] 87 Respiratory Rate 14 Respiratory Effort / Characteristics Non-Labored Spontaneous Respiratory Depth Normal Respiratory Pattern Regular Blood Pressure Blood Pressure [Left Arm] 159/96 H Blood Pressure Mean Blood Pressure Mean [Left Arm] 117 Pulse Oximetry 98 97 Oxygen Delivery Method Room Air Room Air Sepsis Recent Fever Within 48 Hours Sepsis New/Unexplained Change in Mental Status Sepsis Action Taken by Nursing 09/18/24 15:00 09/18/24 16:00 09/18/24 17:00 Temperature 36.6 C Temperature Source Oral Pulse Rate Pulse Rate [Apical] 98 H 94 H 132 H Respiratory Rate 18 16 22 Respiratory Effort / Characteristics Non-Labored Spontaneous Non-Labored Spontaneous Non-Labored Spontaneous Respiratory Depth Normal Normal Normal Respiratory Pattern Regular Regular Regular Blood Pressure Blood Pressure [Left Arm] 181/64 H 172/85 H 123/81 Blood Pressure Mean Blood Pressure Mean [Left Arm] 103 114 95 Pulse Oximetry 95 97 98 Oxygen Delivery Method Room Air Room Air Room Air Sepsis Recent Fever Within 48 Hours Sepsis New/Unexplained Change in Mental Status Sepsis Action Taken by Nursing Primary Survey Airway: Intact Breathing: Normal, breath sounds equal bilaterally Circulation: Skin warm, distal pulses 2+, capillary refill less than 2 seconds Disability Pupils: Equal and reactive to light, 2 mm, brisk GCS: 15, E = 4 V=5 M= 6 Motor Function: Moves all extremities. Sensory: No deficits Secondary Survey GEN: Disheveled. HEAD: Large stellate laceration over the patient's occiput. EYES: Pupils round reactive to light, conjunctiva clear, extraocular movements intact, no raccoons eyes ENT: no oliver's sign, nares patent, oropharynx clear NECK: No JVD, midline trachea, no cervical spine tenderness HEART: Tachycardic rate and rhythm LUNGS: Clear to auscultation bilaterally. ABD: soft, non-tender, no rebound or guarding, MUSC: Pelvis stable. No step offs or deformities, T-L spine non tender NEURO: CNII-XII grossly intact, no sensory deficits Procedures Laceration Laceration 1: Site: scalp Description: stellate Local Anesthetic: lidocaine 1% and with epi Amount of anesthesia used (mL): 8 Pre-repair: wound explored and irrigated extensively Skin layer closed with: vicryl (Absorbable) Size (cm): 4-0 Number of sutures: 6 Technique: simple, interrupted (5) and other (1 [id number]) Course Course 1325: The patient was evaluated in room B12A. A complete history and physical exam was performed Administered Medications Discontinued Medications Chlordiazepoxide HCl (Chlordiazepoxide Hcl 10 Mg Cap) 10 mg PO ONE ONE Stop: 09/18/24 16:00 Last Admin: 09/18/24 16:21 Dose: 10 mg Documented By: AMALIA Sodium Chloride (Nss) 1,000 mls @ 999 mls/hr IV .Q1H1M ONE Stop: 09/18/24 14:27 Last Admin: 09/18/24 14:09 Dose: 999 mls/hr Documented By: AMALIA Lidocaine/Epinephrine (Lidocaine 2%/Epinephrine 1:100,000 20ml) 20 ml INFIL ONE ONE Stop: 09/18/24 14:41 Last Admin: 09/18/24 15:20 Dose: 20 ml Documented By: AMALIA Lorazepam (Lorazepam 2 Mg/1 Ml Vial) 1 mg IV NOW STA Stop: 09/18/24 15:54 Last Admin: 09/18/24 16:08 Dose: 1 mg Documented By: AMALIA Medical Decision Making Laboratory Data Attestation: I reviewed the patient's lab results. 09/18/24 13:46 09/18/24 13:46 Lab Results 09/18/24 Range/Units 13:46 WBC 7.25 (4.8-10.8) K/ul RBC 3.44 L (4.20-5.40) M/uL Hgb 11.3 L (12.0-16.0) g/dl Hct 32.6 L (37.0-47.0) % MCV 94.8 (80.0-100.0) fL MCH 32.8 (25.0-34.0) pg MCHC 34.7 (32.0-36.0) g/dL RDW Std Deviation 43.4 (36.4-46.3) fL RDW Coeff of Vignesh 12.6 (11.5-14.5) % Plt Count 136 (130-400) K/uL MPV 9.2 L (9.4-12.4) fL Immature Gran % (Auto) 0.4 % Neut % (Auto) 78.4 % Lymph % (Auto) 14.5 % [place] % (Auto) 6.3 % Eos % (Auto) 0.0 % Baso % (Auto) 0.4 % Neut # (Auto) 5.68 (1.40-6.50) K/uL Lymph # (Auto) 1.05 L (1.20-3.40) K/uL [place] # (Auto) 0.46 (0.11-0.59) K/uL Eos # (Auto) 0.00 (0.00-0.50) K/uL Baso # (Auto) 0.03 (0.00-0.20) K/uL Immature Gran # (Auto) 0.03 (0.01-0.20) K/uL PT 9.9 (9.0-12.0) Seconds INR 0.9 (0.9-1.1) APTT 24 (21-31) Seconds PTT Ratio 0.9 Sodium 126 L (136-145) mmol/L Potassium 3.7 (3.5-5.1) mmol/L Chloride 87 L (98-107) mmol/L Carbon Dioxide 16 L (21-32) mmol/L Anion Gap 23 H (3-11) BUN 10 (6-23) mg/dl Creatinine 0.62 (0.6-1.2) mg/dl Est Cr Clr Drug Dosing 55.4 ml/min eGFR 96.94 BUN/Creatinine Ratio 16.1 (10-20) Glucose 67 L (70-99(Fasting)) mg/dl Osmolality 328 H (280-300) mOsm/kg Calcium 8.6 (8.6-10.3) mg/dl Total Bilirubin 1.3 H (0.2-1.0) mg/dl Direct Bilirubin 0.3 H (0-0.2) mg/dl AST 112 H (13-39) U/L ALT 65 H (7-52) U/L Alkaline Phosphatase 107 H (34-104) U/L Total Protein 7.2 (6.0-8.3) gm/dl Albumin 3.9 (3.4-5.0) gm/dl Lipase 35 (11-82) U/L Ethyl Alcohol mg/dL 256.2 H (<10.0) mg/dl Imaging Data Radiologist's Impression: Cervical Spine CT 09/18/24 13:28 CT SCAN OF THE CERVICAL SPINE CLINICAL HISTORY: Trauma. COMPARISON STUDY: Cervical spine radiographs December 07, 2021. TECHNIQUE: CT scan of the cervical spine is performed from the skull base to the upper thoracic spine. Images are reviewed in the axial, sagittal, and coronal planes. IV contrast was not administered for this examination. A dose lowering technique was utilized adhering to the principles of ALARA. CT DOSE: 1003.86 mGy.cm FINDINGS: Mild leftward curvature of the cervical spine is present. Reversal of the cervical lordosis is unchanged. No cervical spine fractures are present. There is moderate multilevel disc space narrowing, endplate osteophytosis and facet arthrosis within the cervical spine. No prevertebral edema. IMPRESSION: No acute cervical spine fracture or subluxation. ACT 112: Negative or not required by law. Electronically signed by: Brenden Flower M.D. 09/18/2024 2:[address] 09/18/24 13:28 CT SCAN OF THE BRAIN WITHOUT IV CONTRAST CLINICAL HISTORY: Fall. Intoxication. Headache. COMPARISON STUDY: No prior TECHNIQUE: Unenhanced axial CT scan of the brain is performed from the vertex to the skull base. Images are reviewed in the axial, sagittal, coronal planes. A dose lowering technique was utilized adhering to the principles of ALARA. FINDINGS: Brain parenchyma: There is age-related involutional change noting mild subcortical and periventricular microangiopathic disease. There is no hemorrhage, mass effect, or evidence of acute territorial ischemia by CT criteria. Costa-white matter differentiation is preserved. A chronic lacunar infarct is noted in the davonte. No extra-axial fluid collection is seen. Ventricles, sulci, cisterns: Prominent secondary to involutional change. Intracranial vasculature: There is atherosclerotic calcification of the cavernous carotid and vertebral arteries. Calvarium: The skeletal structures are osteopenic. No depressed calvarial fracture is seen. Soft tissues: There is a scalp injury/hematoma at the left posterior vertex. Sinuses and mastoids: The visualized paranasal sinuses are clear. The mastoid air cells are well pneumatized. Orbits: The bony orbits are grossly intact. IMPRESSION: 1. There is no hemorrhage, mass effect, or evidence of acute territorial ischemia by CT criteria. 2. High left posterior frontal scalp injury/hematoma. ACT 112: Negative or not required by law. Electronically signed by: Jhon Manuel M.D. 09/18/2024 2:27 PM [facility] Narrative Cardiac monitoring: An order was placed for continuous cardiac monitoring. The monitor shows a rate of 120 with sinus tachycardia rhythm interpreted by me Vital signs stable. Imaging shows no ICH or C-spine fracture. Patient's laceration was repaired, see procedure note. Patient's sodium is 126. Glucose 67. Tolerating p.o. crackers in the emergency department. Serum alcohol 256. Patient's hyponatremia is thought mainly due to her excessive beer intake. Patient will be admitted to the [facility] hospitalist team. Impression & Plan Alcohol use disorder, Hyponatremia, Transaminitis, CHI (closed head injury), Laceration of scalp Discharge Plan Visit Data Chief Complaint: Detox Request Stated Complaint: NEEDS TO DETOX ED Provider: Phillip Umanzor Discharge Problem: Alcohol use disorder, Hyponatremia, Transaminitis, CHI (closed head injury), Laceration of scalp Patient Disposition: Admitted As Inpatient Condition: Fair Forms Stand Alone Forms: [facility], Suicide Prevention Resources Prescriptions Prescriptions: No Action No Known Home Medications Referrals Referrals: Ximena Lagos MD [Primary Care Provider] - Discharge Problem: CHI (closed head injury) Qualifiers: Encounter type: initial encounter Qualified Code(s): S09.90XA - Unspecified injury of head, initial encounter Laceration of scalp Qualifiers: Encounter type: initial encounter Qualified Code(s): S01.01XA - Laceration without foreign body of scalp, initial encounter
--- NOTE | 2024-09-18 18:36 | Electrocardiogram Report ---
Test Reason : Blood Pressure : */* mmHG Vent. Rate : 117 BPM Atrial Rate : 117 BPM P-R Int : 124 ms QRS Dur : 82 ms QT Int : 336 ms P-R-T Axes : 83 62 72 degrees QTcB Int : 468 ms Sinus tachycardia Otherwise normal ECG When compared with ECG of 06-May-2022 13:37, T wave amplitude has decreased in Lateral leads Confirmed by Juliano Mccormack ([id number]) on 09/18/2024 6:35:45 PM Referred By: Confirmed By: Juliano Mccormack
[2024-09-18] MEDS ORDERED: ONDANSETRON INJ 2 MG/ML 2 ML VIAL IV PRN (19:35)
[2024-09-18] MEDS ORDERED: ALUMINUM/MAGNESIUM SUSP 30 ML UDC PO PRN (19:35)
[2024-09-18] MEDS ORDERED: GABAPENTIN 800MG ALCOHOL WITHDRAWAL LOAD PO STA (19:35)
[2024-09-18 19:55] LABS: Magnesium 1.5 mg/dl (1.7-2.4)
[2024-09-18] MEDS: THIAMINE HCL 500 MG in SODIUM CHLORIDE 0.9% 50 ML IV ONE (20:28)
[2024-09-18] MEDS: GABAPENTIN 400 MG CAP PO ONE (20:30)
[2024-09-18] MEDS: HEPARIN SOD 5,000 UNIT/0.5 ML VIAL SQ SCH (20:30)
[2024-09-18] MEDS: MAGNESIUM SULFATE / D5W 1 GM/100 ML BAG IV ONE (20:50)
[2024-09-18] MEDS ORDERED: Ativan PO Alcohol Withdrawal--Active Protocol PO PRN (21:39)
[2024-09-18] MEDS ORDERED: LORazepam 1 MG TAB PO PRN ×2 (21:39)
[2024-09-18] MEDS: GABAPENTIN 400 MG CAP PO SCH (23:46)
[2024-09-19 06:41] LABS: Hematocrit (blood only) 26.8 % (37.0-47.0); Hemoglobin 9.7 g/dl (12.0-16.0); Mean Corpuscular Hemoglobin 33.4 pg (25.0-34.0); Mean Corpuscular Volume 92.4 fL (80.0-100.0); Platelet Count 100 K/uL (130-400); RDW Standard Deviation 41.2 fL (36.4-46.3); Red Blood Count 2.90 M/uL (4.20-5.40); White Blood Count 4.40 K/ul (4.8-10.8)
[2024-09-19 06:57] LABS: Alanine Aminotransferase 48.0 U/L (7-52); Albumin Globulin Ratio 1.4 (0.9-2); Alkaline Phosphatase 89.0 U/L (34-104); Anion Gap 9.0 (3-11); Bilirubin,Total 1.3 mg/dl (0.2-1.0); Blood Urea Nitrogen 12.0 mg/dl (6-23); Calcium 8.3 mg/dl (8.6-10.3); Carbon Dioxide 26.0 mmol/L (21-32); Chloride 97.0 mmol/L (98-107); Creatinine Clr Calc Pharmacy 74.2 ml/min; Globulin 2.5 gm/dl (2.5-4.0); Glucose 93.0 mg/dl (70-99(Fasting)); Magnesium 1.8 mg/dl (1.7-2.4); Potassium 3.9 mmol/L (3.5-5.1); Sodium 132.0 mmol/L (136-145); Total Protein 6.0 gm/dl (6.0-8.3)
--- NOTE | 2024-09-19 07:18 | Hospitalist Progress Note ---
Date of Service September 19, 2024 Assessment & Plan (1) Alcohol use disorder: (2) Hyponatremia: (3) Transaminitis: Plan 69-year-old female with a history of alcohol use presents after fall with a scalp laceration. She is hyponatremia likely from beer potomania she is with blood alcohol of 256 on presentation. Her last hospital stay for this was in April 2022 where she did well with regards to a Librium taper. We may employ Librium and gabapentin at this time and not entering the phenobarbital as we have a failure #Hyponatremia. Pt sodium is improving on a fluid restriction likely release restriction once gets closer to 135 #Alcohol abuse/withdrawal doing well on low-dose gabapentin scheduled and Librium scheduled with as needed Ativan, patient given intravenous thiamine and then continued on p.o. thiamine B12 and folic acid. NASREEN S score continue # Transaminitis the patient likely has alcohol irritation to her liver. Resolved #Moderate to severe malnutrition with a BMI of 15. Appreciate nutrition's help will have supplements and check additional vitamin and mineral levels initiating multivitamin #DVT prevention will be heparin therapy followed cautiously with platelets of 100 Admission and Anticipated Discharge Date Admission Date: September 18, 2024 Subjective Patient is much less shaky and tremulous although remains tachycardic this is a sinus tach on the monitor She says she feels drowsy but much improved than yesterday Attending to eat her food Brother is visiting at the bedside Physical Exam Physical Exam: The patient appeared underweight, BMI 15.8 contusion to scalp with repair Vital signs as documented. Neck is without JVD, thyromegaly, or carotid bruits. Lungs are clear to auscultation, no focal loss of breath sounds Cardiac exam, Rhythm is regular.. No murmurs, rubs or gallops. Abdominal exam reveals normal bowel sounds, soft non tender, no masses Extremities are nonedematous and both pedal pulses are present Neurologic exam is alert and oriented, no focal loss of strength or sensation Slurred speech and tremulousness has resolved Skin is with scalp injury Results & Data Results & Data Vital Signs (Past 12 Hours) Vital Signs Temp Pulse Resp BP Pulse Ox O2 Del Method 09/19/24 03:05 99.0 F 113 H 25 H 136/76 95 Room Air 09/18/24 22:53 99.0 F 116 H 24 152/75 H 95 Room Air 09/18/24 20:00 Room Air 09/18/24 19:56 98.2 F 117 H 18 175/77 H 96 Room Air Laboratory Results Reviewed CBC patient is anemic likely from nutritional and vitamin deficiency Reviewed chemistry sodium has improved Reviewed transaminitis also improved PG Care Time/CCT Total # of Minutes Spent Total Time Spent with Patient: Total time spent is greater than 50% in coordination of care (as documented) at patient's floor/unit and/or counseling patient: Coding Level of Care Code 55144 SUB INP/OBS CARE 3/50MIN Diagnoses Alcohol use disorder F10.90 Hyponatremia E87.1 Transaminitis R74.01
[2024-09-19] MEDS: THIAMINE HCL 100 MG TAB PO SCH (09:18)
[2024-09-19] MEDS: FOLIC ACID 1 MG TAB PO SCH (09:18)
[2024-09-19] MEDS: LORazepam 1 MG TAB PO PRN (09:25)
[2024-09-19] MEDS: GABAPENTIN 400 MG CAP PO SCH (13:25)
[2024-09-19] MEDS: ACETAMINOPHEN 325 MG TAB PO PRN (20:51)
--- NOTE | 2024-09-20 07:32 | Hospitalist Progress Note ---
Date of Service September 20, 2024 Assessment & Plan (1) Alcohol use disorder: (2) Hyponatremia: (3) Transaminitis: Plan 69-year-old female with a history of alcohol use presents after fall with a scalp laceration. She is hyponatremia likely from beer potomania she is with blood alcohol of 256 on presentation. Her last hospital stay for this was in April 2022 where she did well with regards to a Librium taper. We may employ Librium and gabapentin at this time and not entering the phenobarbital as we have a failure #Hyponatremia. Pt sodium is improving on a fluid restriction likely release restriction once gets closer to 135, replete potassium/magnesium #Alcohol abuse/withdrawal doing well on low-dose gabapentin scheduled and Librium scheduled with as needed Ativan, patient given intravenous thiamine and then continued on p.o. thiamine B12 and folic acid. NASREEN S score continue # Transaminitis the patient likely has alcohol irritation to her liver. Resolved #Moderate to severe malnutrition with a BMI of 15. Appreciate nutrition's help will have supplements and check additional vitamin and mineral levels initiating multivitamin #DVT prevention will be heparin therapy followed cautiously with platelets of 100 Admission and Anticipated Discharge Date Admission Date: September 18, 2024 Subjective Patient is much less shaky and tremulous although remains tachycardic this is a sinus tach on the monitor She says she feels less drowsy but much improved than yesterday Physical Exam Physical Exam: The patient appeared underweight, BMI 15.8 contusion to scalp with repair using vicryl Vital signs as documented. Neck is without JVD, thyromegaly, or carotid bruits. Lungs are clear to auscultation, no focal loss of breath sounds Cardiac exam, Rhythm is regular.. No murmurs, rubs or gallops. Abdominal exam reveals normal bowel sounds, soft non tender, no masses Extremities are nonedematous and both pedal pulses are present Neurologic exam is alert and oriented, no focal loss of strength or sensation Slurred speech and tremulousness has resolved Skin is with scalp injury Results & Data Results & Data Vital Signs (Past 12 Hours) Vital Signs Temp Pulse Resp BP Pulse Ox O2 Del Method 09/20/24 03:28 97.5 F L 82 18 111/67 97 Room Air 09/19/24 22:54 98.2 F 88 18 109/63 96 Room Air Laboratory Results Reviewed CBC reviewed chemistry PG Care Time/CCT Total # of Minutes Spent Total Time Spent with Patient: Total time spent is greater than 50% in coordination of care (as documented) at patient's floor/unit and/or counseling patient: Coding Level of Care Code 14747 SUB INP/OBS CARE 3/50MIN Diagnoses Alcohol use disorder F10.90 Hyponatremia E87.1 Transaminitis R74.01
[2024-09-20] MEDS: MULTIVITAMIN TAB PO SCH (09:03)
[2024-09-20 10:05] LABS: Anion Gap 10.0 (3-11); Bilirubin,Total 1.0 mg/dl (0.2-1.0); Calcium 8.3 mg/dl (8.6-10.3); Carbon Dioxide 24.0 mmol/L (21-32); Chloride 100.0 mmol/L (98-107); Magnesium 1.7 mg/dl (1.7-2.4); Potassium 3.2 mmol/L (3.5-5.1); Sodium 134.0 mmol/L (136-145)
[2024-09-20 10:11] LABS: Alanine Aminotransferase 39.0 U/L (7-52); Albumin Globulin Ratio 1.2 (0.9-2); Alkaline Phosphatase 83.0 U/L (34-104); Blood Urea Nitrogen 12.0 mg/dl (6-23); Creatinine Clr Calc Pharmacy 89.3 ml/min; Globulin 2.6 gm/dl (2.5-4.0); Glucose 77.0 mg/dl (70-99(Fasting)); Total Protein 5.8 gm/dl (6.0-8.3)
[2024-09-20] MEDS ORDERED: METOPROLOL TARTRATE 1 MG/ML VIAL IV PRN (15:09)
[2024-09-20] MEDS: POTASSIUM CHLORIDE CRTAB 20 MEQ TABCR PO STA (16:02)
[2024-09-20] MEDS: MAGNESIUM SULFATE / D5W 1 GM/100 ML BAG IV ONE (16:02)
[2024-09-20] MEDS: GABAPENTIN 400 MG CAP PO SCH (16:03)
[2024-09-20] MEDS: NICOTINE 21 MG/24 HR TDSY TD SCH (16:03)
[2024-09-20 21:42] LABS: Appearance Urine Clear (Clear); Bacteria Urine Automated 4+ (None Seen); Cast Urine Automated 0-2 /lpf (0-2); Epithelial Cell Urine Auto 0-2 /hpf (0-2); Glucose Urine UA Negative (Negative); RBC Urine Automated 0-2 /hpf (0-2); WBC Urine Automated 0-5 /hpf (0-5)
[2024-09-21] MEDS: cefTRIAXone SODIUM 1,000 MG/50 ML BAG IV SCH (04:49)
[2024-09-21 07:17] LABS: Hematocrit (blood only) 23.9 % (37.0-47.0); Hemoglobin 8.4 g/dl (12.0-16.0); Mean Corpuscular Hemoglobin 33.5 pg (25.0-34.0); Mean Corpuscular Volume 95.2 fL (80.0-100.0); Platelet Count 111 K/uL (130-400); RDW Standard Deviation 43.2 fL (36.4-46.3); Red Blood Count 2.51 M/uL (4.20-5.40); White Blood Count 4.95 K/ul (4.8-10.8)
[2024-09-21 07:42] LABS: Alanine Aminotransferase 36.0 U/L (7-52); Albumin Globulin Ratio 1.2 (0.9-2); Alkaline Phosphatase 74.0 U/L (34-104); Anion Gap 5.0 (3-11); Bilirubin,Total 0.5 mg/dl (0.2-1.0); Blood Urea Nitrogen 8.0 mg/dl (6-23); Calcium 8.1 mg/dl (8.6-10.3); Carbon Dioxide 28.0 mmol/L (21-32); Chloride 103.0 mmol/L (98-107); Creatinine Clr Calc Pharmacy 91.2 ml/min; Globulin 2.5 gm/dl (2.5-4.0); Glucose 94.0 mg/dl (70-99(Fasting)); Magnesium 1.5 mg/dl (1.7-2.4); Potassium 3.5 mmol/L (3.5-5.1); Sodium 136.0 mmol/L (136-145); Total Protein 5.4 gm/dl (6.0-8.3)
--- NOTE | 2024-09-21 07:49 | Hospitalist Progress Note ---
Date of Service September 21, 2024 Assessment & Plan (1) Alcohol use disorder: (2) Hyponatremia: (3) Transaminitis: Plan 69-year-old female with a history of alcohol use presents after fall with a scalp laceration. She is hyponatremia likely from beer potomania she is with blood alcohol of 256 on presentation. Her last hospital stay for this was in April 2022 where she did well with regards to a Librium taper. We may employ Librium and gabapentin at this time and not entering the phenobarbital as we have a failure #Hyponatremia. Pt sodium is improving on a fluid restriction likely release restriction once gets closer to 135, replete potassium/magnesium #Alcohol abuse/withdrawal doing well on low-dose gabapentin scheduled and Librium scheduled with as needed Ativan, patient given intravenous thiamine and then continued on p.o. thiamine B12 and folic acid. NASREEN S score continue treatment # anemia, normocytic, likely alcohol gastritis, start protonix, follow hgb #Moderate to severe malnutrition with a BMI of 15. Appreciate nutrition's help , vitamin d deficient adding po supplement #urinary retention, 09/21, abnormal ua, likely uti poa, started on ceftriaxone could explain persistent tachycardia # Transaminitis the patient likely has alcohol irritation to her liver. Resolved #DVT prevention will be heparin therapy followed cautiously with platelets of 110 and anemia Admission and Anticipated Discharge Date Admission Date: September 18, 2024 Results & Data Results & Data Vital Signs (Past 12 Hours) Vital Signs Temp Pulse Pulse Resp BP Pulse Ox O2 Del Method 09/21/24 07:20 97.5 F L 95 H 18 152/69 H 98 Room Air 09/21/24 03:22 98.4 F 100 H 18 134/65 97 Room Air 09/21/24 00:41 110 H 09/20/24 23:01 98.1 F 108 H 18 122/69 97 Room Air PG Care Time/CCT Total # of Minutes Spent Total Time Spent with Patient: Total time spent is greater than 50% in coordination of care (as documented) at patient's floor/unit and/or counseling patient: Coding Diagnoses Alcohol use disorder F10.90 Hyponatremia E87.1 Transaminitis R74.01
[2024-09-21] MEDS: REMOVE NICODERM PATCH SCH (09:38)
[2024-09-21] MEDS: CHOLECALCIFEROL 125 MCG (5,000 UNITS) TAB PO SCH (09:45)
[2024-09-21] MEDS: POTASSIUM CHLORIDE CRTAB 20 MEQ TABCR PO SCH (09:45)
[2024-09-21 10:50] VITALS: BP 155/76; PULSE 99; RESP 19; TEMP 97.3; O2SAT 99
--- NOTE | 2024-09-21 14:11 | Discharge Summary ---
Discharge Summary Date of Service September 21, 2024 Principal Dx & Hospital Course #1 = Principal Diagnosis (1) Alcohol use disorder: (2) Hyponatremia: (3) Transaminitis: Plan 69-year-old female with a history of alcohol use presents after fall with a scalp laceration. She is hyponatremia likely from beer potomania she is with blood alcohol of 256 on presentation. Her last hospital stay for this was in April 2022 where she did well with regards to a Librium taper. Librium and gabapentin #Hyponatremia. improved #Alcohol abuse/withdrawal doing well on low-dose gabapentin scheduled and Librium scheduled, pt demanded to leave was Rx for the remainder of the librium taper # anemia, normocytic, likely alcohol gastritis, recommend follow up #Moderate to severe malnutrition with a BMI of 15. Appreciate nutrition's help , vitamin d deficient #urinary retention, 09/21, abnormal ua, likely uti poa, Rx cipro # Transaminitis the patient likely has alcohol irritation to her liver. Resolved #AMA pt is leaving against doctors advice with education of dangers and high likelihood of returning to alcohol abuse or injury Admission HPI Per Admitting Provider Patient had a fall at home with a scalp laceration presents with request for alcohol detox blood alcohol on presentation 256. Patient is also hyponatremic at 126 and has elevated LFTs consistent with possible liver irritation. She reportedly drinks 8 beers a day but most recently has been drinking right whiskey her last drink was 1/2-hour prior to presentation in April 2022 the patient sustained a detox in the hospital with Librium therapy without significant incidents however at that point time she was placed on metoprolol for blood pressure control Discharge Exam In am pt was calm, then demanded to leave was walking out, did Rx some meds for her for home Discharge Plan Discharge Items Patient Disposition: Home - Self-Care Reason For Visit: ALCOHOL WITHDRAWAL,HYPONATREMIA Discharge Diagnosis: alcohol withdrawal urinary tract infection Condition on Discharge: Fair Activity: Resume your previous activity Non-emergency contact: Primary Care Provider Call non-emergency contact if: you have any medication questions Follow-up/Referrals: Ximena Lagos MD [Primary Care Provider] - 09/28/24 11:00 am (Hospital follow up on September 28 at 11 am.) Diet: Regular Addtl Attending Provider Instructions: please do not drink any alcohol consider alcoholics anonymous complete antibiotics for your urine infection the stitches you have in your head are absorbable, please follow up with your primary care doctor to check you wound next week take a multple vitamin and vitamin D3 daily Addtl Software Verification Engineer Provider Instructions: Be aware that I am not discharging you completely with my agreement you are requesting to go home and rather than discharge AGAINST MEDICAL ADVICE I am going to give you some medications for your urinary tract infection is strongly advise you follow-up with your primary care physician to consider additional discussion regarding her alcohol use and to have your wound checked Pending Studies at Discharge: No Stand-Alone Forms: [facility] [place], Smoking Cessation Medications and DC Order Prescriptions: New ciprofloxacin HCl [Cipro] 500 mg tablet 500 mg PO BID Qty: 10 0RF chlordiazepoxide HCl 10 mg capsule 10 mg PO UD Qty: 10 0RF Rx Instructions: one twice a day for 3 days then one at night until completed No Action No Known Home Medications Discharge Orders: Discharge Order (Routine); Ordered 09/21/24 Ordered By: Semaj Reyes Admission Data Admit Date/Time: 09/18/24 15:21 Attending Provider: Semaj Reyes Admit Provider: Semaj Ryees Primary Care Provider: Ximena Lagos Other Providers: Semaj Reyes Hospital Stay Data Consultations 09/18/24 15:06 ED Decision to Admit Stat Diagnostic Imagining Performed 09/18/24 13:28 CT cervical spine wo con Stat CT head/brain wo con Stat Pending Results Patient Have Any Pending Studies at Discharge: No Discharge Instructions Given to Patient (Per Discharging Provider) please do not drink any alcohol consider alcoholics anonymous complete antibiotics for your urine infection the stitches you have in your head are absorbable, please follow up with your primary care doctor to check you wound next week take a multple vitamin and vitamin D3 daily Total Time Total Time Spent Total Time Spent (In Minutes): It required greater than 30 minutes to prepare this patient for discharge. Coding Level of Care Code 76148 INP/OBS DISCH >30 MIN Diagnoses Alcohol use disorder F10.90 Hyponatremia E87.1 Transaminitis R74.01
[2024-09-22] MEDS ORDERED: GABAPENTIN 400 MG CAP PO SCH (04:00)
== END 2024-09-21 15:26 | disposition home or self-care (01) | DRG 896 ==
LOC: SUATTDRO → ED 13:13 → 2S 15:21

== ENCOUNTER 2024-11-24 18:25 | Observation (INO) ==
--- NOTE | 2024-11-24 19:02 | Emergency Department Note ---
Impression & Plan Alcoholic intoxication, Hyponatremia, Hypokalemia, Alcohol abuse ED Provider Note Provider: Amor Tomas MD CHIEF COMPLAINT: Alcohol abuse HISTORY OF PRESENT ILLNESS: Patient is a 69-year-old female history of alcohol abuse presenting here today with sister requesting detox services. Patient states she knows she is stop drinking. Over the past 2 weeks has been drinking quite heavily mainly beer and liquor. Was in the hospital in September. Had a fall at that time and sutures removed. Denies pain. Denies more recent fall. States her last drink was an hour or 2 ago. Does have a history of withdrawal seizures by her report but no history of hallucinations. Denies other drug use. Denies medications at home. States has not been eating much over the last several weeks. Denies nausea at this time or abdominal pain. Denies headache. PAST MEDICAL HISTORY: As noted above MEDICATIONS: Denies SOCIAL HISTORY: , lives in apartment about 5 PHYSICAL EXAM: GENERAL: alert and oriented in no acute distress on stretcher Head: normocephalic and atraumatic with some slightly matted hair in the posterior head. EYES: No injection, discharge or icterus. PERRL, EOMI. NECK: Trachea midline. Supple good range of motion ENT: Mucous membranes pink and moist. LUNGS: Airway patent. No retractions. Breath sounds clear HEART: Regular rate and rhythm. No chest wall tenderness ABDOMEN: Soft and non-tender, without guarding or rebound. SKIN: Acyanotic, warm, dry, without rashes EXTREMITIES: Without swelling, tenderness or deformity NEUROLOGICAL: No focal deficits. No aphasia. No facial droop or slurred speech. Ambulatory. EK bpm normal sinus rhythm. No PVC or PAC. No acute ST segment elevation or depression QTc 462. CONTINUOUS CARDIAC MONITORING: was ordered and showed a heart rate of 70s to 90s bpm in normal sinus rhythm Patient's laboratory studies and imaging reviewed. Differential includes Alcohol intoxication, toxicologic, infection, hypoglycemia, electrolyte abnormalities, cardiac sources, intracerebral event, neurologic, trauma, as well as other pathologies. IMPRESSION/MEDICAL DECISION MAKING: Patient awake alert without complaint of pain. Does not appear in acute alcohol withdrawal at this time. No evidence of new trauma and she denies pain or recent fall. Basic blood work obtained. Sister at bedside provides additional history of withdrawal seizures. Electrolytes and basic blood work is sent including alcohol level. Given thiamine and folate supplementation given her poor intake recently. Blood work here without anemia leukocytosis. Normal platelets. Does have evidence however of hyponatremia 123 with hypokalemia of 2.8. Magnesium in the normal range at 1.7. Alcohol level of 200. Magnesium and potassium IV supplementation ordered. Will bring in for further care. Hospitalist was contacted. Do not believe she requires at this point to any benzodiazepines but will need to be monitored for withdrawal. Discussed with the hospitalist team. Will defer hyponatremia correction to the inpatient team. DIAGNOSIS: Alcohol intoxication and abuse, hyponatremia, hypokalemia DISPOSITION: Hospitalist will evaluate Patient was agreeable with this plan. Past Med/Surg History Problem List (Updated 11/24/24 @ 22:18 by Amor Tomas M.D.) Alcohol abuse (Acute) Hypokalemia (Acute) Alcoholic intoxication (Acute) Laceration of scalp (Acute) CHI (closed head injury) (Acute) Transaminitis (Acute) Hyponatremia (Acute) Anxiety Depression Alcohol use disorder (Acute) Systolic ejection murmur Medical History Drug abuse history History of seizure due to alcohol withdrawal Hypertension Surgical History H/O tubal ligation Family History Mother Breast cancer, Onset Age: 66 Brother Family history of alcohol abuse Grandfather Myocardial infarction Other Family history non-contributory Denies family history of Ovarian cancer Prostate cancer Colorectal cancer Social History Smoking Status: Current every day smoker Tobacco Type: Cigarettes Age Started Using Tobacco: 19; packs per day: 1; Cigarettes Per Day: 12; Second Hand Exposure: No; Do You Dip or Chew Tobacco: No; Hx Alcohol Use: Yes Alcohol type: beer Alcohol Intake Frequency: 4 or More x per/Week Alcohol Intake Frequency Comment: 2 daily Hx Substance Use: Yes Preferred Language: Spanish Communication Ability: Effective Target Worker Required: No Beliefs That Will Affect Care: None marital status: / Current Living Situation: Alone Current Living Situation Comment: lives in an apartment Feels Safe at Home: Yes Diet: regular caffeine: Yes Dental Care, Regularly: No Physical Activity Frequency: Daily Physical Activity Frequency Comment: walks the dog Seatbelt Use: never Sunscreen Use: No Assistive Devices: None Allergies Allergies Allergy/AdvReac Type Severity Reaction Status Date / Time No Known Allergies Allergy Unverified 10/11/24 11:34 Home Meds Home Medications Medication Instructions Recorded Confirmed No Known Home Medications 11/24/24 11/24/24 Results & Data (ED) Vital Signs Vital Signs - 24 hr 11/24/24 18:27 11/24/24 18:52 11/24/24 19:03 Temperature 36.6 C Temperature Source Temporal Artery Scan Pulse Rate 110 H 91 H Pulse Rate [Apical] Pulse Rhythm Regular Pulse Rhythm [Apical] Pulse Strength Normal Pulse Strength [Apical] Respiratory Rate 20 Respiratory Effort / Characteristics Non-Labored Spontaneous Respiratory Depth Normal Respiratory Pattern Blood Pressure 124/82 Blood Pressure [Right Arm] Blood Pressure Mean 96 Blood Pressure Mean [Right Arm] Blood Pressure Position Sitting Blood Pressure Position [Right Arm] Pulse Oximetry 95 100 Oxygen Delivery Method Room Air Room Air Sepsis Recent Fever Within 48 Hours No Sepsis New/Unexplained Change in Mental Status N/A Sepsis Action Taken by Nursing No Action Required 11/24/24 19:03 11/24/24 21:00 11/24/24 21:38 Temperature Temperature Source Pulse Rate 78 Pulse Rate [Apical] 82 Pulse Rhythm Pulse Rhythm [Apical] Regular Regular Pulse Strength Pulse Strength [Apical] Normal Normal Respiratory Rate 18 18 Respiratory Effort / Characteristics Non-Labored Spontaneous Non-Labored Spontaneous Respiratory Depth Normal Normal Respiratory Pattern Regular Regular Blood Pressure 151/77 H Blood Pressure [Right Arm] 137/73 154/74 H Blood Pressure Mean Blood Pressure Mean [Right Arm] 94 100 Blood Pressure Position Blood Pressure Position [Right Arm] Lying Lying Pulse Oximetry 100 98 98 Oxygen Delivery Method Room Air Room Air Room Air Sepsis Recent Fever Within 48 Hours Sepsis New/Unexplained Change in Mental Status Sepsis Action Taken by Nursing Laboratory Data 11/24/24 19:00 11/24/24 19:00 Lab Results 11/24/24 11/24/24 Range/Units 19:00 20:37 WBC 5.03 (4.8-10.8) K/ul RBC 4.23 (4.20-5.40) M/uL Hgb 13.5 (12.0-16.0) g/dl Hct 37.9 (37.0-47.0) % MCV 89.6 (80.0-100.0) fL MCH 31.9 (25.0-34.0) pg MCHC 35.6 (32.0-36.0) g/dL RDW Std Deviation 41.5 (36.4-46.3) fL RDW Coeff of Vignesh 12.6 (11.5-14.5) % Plt Count 176 (130-400) K/uL MPV 9.5 (9.4-12.4) fL Immature Gran % (Auto) 0.6 % Neut % (Auto) 54.7 % Lymph % (Auto) 35.8 % Mathews % (Auto) 8.3 % Eos % (Auto) 0.4 % Baso % (Auto) 0.2 % Neut # (Auto) 2.75 (1.40-6.50) K/uL Lymph # (Auto) 1.80 (1.20-3.40) K/uL Mathews # (Auto) 0.42 (0.11-0.59) K/uL Eos # (Auto) 0.02 (0.00-0.50) K/uL Baso # (Auto) 0.01 (0.00-0.20) K/uL Immature Gran # (Auto) 0.03 (0.01-0.20) K/uL PT 10.1 (9.0-12.0) Seconds INR 0.9 (0.9-1.1) Sodium 123 L (136-145) mmol/L Potassium 2.8 L (3.5-5.1) mmol/L Chloride 84 L (98-107) mmol/L Carbon Dioxide 25 (21-32) mmol/L Anion Gap 14 H (3-11) BUN 3 L (6-23) mg/dl Creatinine 0.51 L (0.6-1.2) mg/dl Est Cr Clr Drug Dosing 81.5 ml/min eGFR 101.61 BUN/Creatinine Ratio 5.9 L (10-20) Glucose 88 (70-99(Fasting)) mg/dl Osmolality 301 H (280-300) mOsm/kg Calcium 8.9 (8.6-10.3) mg/dl Magnesium 1.7 (1.7-2.4) mg/dl Total Bilirubin 0.3 (0.2-1.0) mg/dl AST 47 H (13-39) U/L ALT 16 (7-52) U/L Alkaline Phosphatase 103 (34-104) U/L Total Protein 7.6 (6.0-8.3) gm/dl Albumin 3.9 (3.4-5.0) gm/dl Globulin 3.7 (2.5-4.0) gm/dl Albumin/Globulin Ratio 1.1 (0.9-2) TSH 1.792 (0.300-4.500) uIu/ml Urine Color Yellow Urine Appearance Clear (Clear) Urine pH 5.5 (4.5-7.5) Ur Specific Wedron 1.004 (1.000-1.030) Urine Protein Negative (Negative) Urine Glucose (UA) Negative (Negative) Urine Ketones Negative (Negative) Urine Blood Negative (Negative) Urine Nitrite Negative (Negative) Urine Bilirubin Negative (Negative) Urine Urobilinogen Negative (Negative) Ur Leukocyte Esterase 1+ H (Negative) Urine WBC (Auto) 6-10 H (0-5) /hpf Urine RBC (Auto) 0-2 (0-2) /hpf U Hyaline Cast (Auto) 0-2 (0-2) /lpf U Epithel Cells (Auto) 0-2 (0-2) /hpf Urine Bacteria (Auto) 4+ H (None Seen) Urine Osmolality 115 L (500-800) mOsm/kg Urine Comment Salicylates < 3.0 L (3.0-30) mg/dl Urine Opiates Screen Neg (Neg) Ur Methadone, Qual Neg (Neg) Urine Fentanyl Screen Neg (Neg) Acetaminophen < 3 L (10-30) ug/ml Urine Barbiturates Neg (Neg) Ur Phencyclidine (PCP) Neg (Neg) U Amphetamin/Meth Scrn Neg (Neg) MDMA (Ecstasy) Screen Neg (Neg) U Benzodiazepines Scrn Neg (Neg) Ur Cocaine Metabolite Neg (Neg) U Marijuana (THC) Screen Neg (Neg) Ethyl Alcohol mg/dL 200.6 H (<10.0) mg/dl Administered Medications Discontinued Medications Folic Acid 1 mg/ Syringe 10 mls @ 5 mls/min IV NOW STA Stop: 11/24/24 18:58 Last Admin: 11/24/24 20:07 Dose: 5 mls/min Documented By: KENROY Thiamine HCl 100 mg/ Syringe 10 mls @ 2 mls/min IV NOW STA Stop: 11/24/24 19:01 Last Admin: 11/24/24 20:07 Dose: 2 mls/min Documented By: KENROY Magnesium Sulfate/Dextrose (Magnesium Sulfate / D5w) 1 gm in 100 mls @ 100 mls/hr IV NOW STA Stop: 11/24/24 20:40 Last Infusion: 11/24/24 21:06 Dose: Infused Documented By: Admin: 11/24/24 19:55 Dose: 100 mls/hr Documented By: KENROY Potassium Chloride (K Raymundo / Wtr) 10 meq in 100 mls @ 100 mls/hr IV Q1H HUEY Stop: 11/24/24 21:44 Last Admin: 11/24/24 21:14 Dose: 100 mls/hr Documented By: Infusion: 11/24/24 21:06 Dose: Infused Documented By: Admin: 11/24/24 19:55 Dose: 100 mls/hr Documented By: KENROY Discharge Plan Visit Data Chief Complaint: Detox Request Stated Complaint: DETOX ED Provider: Amor Tomas Discharge Problem: Alcoholic intoxication, Hyponatremia, Hypokalemia, Alcohol abuse Patient Disposition: Admitted As Inpatient Condition: Fair Discharge Instructions Interventions: ED Discharge Assessment Last Done: 11/24/24 21:38 Forms Stand Alone Forms: [facility], Suicide Prevention Resources Prescriptions Prescriptions: No Action No Known Home Medications Referrals Referrals: Ximena Lagos MD [Primary Care Provider] -
[2024-11-24 19:16] LABS: Hematocrit (blood only) 37.9 % (37.0-47.0); Hemoglobin 13.5 g/dl (12.0-16.0); Immature Granulocytes # (auto) 0.03 K/uL (0.01-0.20); Immature Granulocytes % (auto) 0.6 %; Mean Corpuscular Hemoglobin 31.9 pg (25.0-34.0); Mean Corpuscular Volume 89.6 fL (80.0-100.0); Platelet Count 176 K/uL (130-400); RDW Standard Deviation 41.5 fL (36.4-46.3); Red Blood Count 4.23 M/uL (4.20-5.40); White Blood Count 5.03 K/ul (4.8-10.8)
[2024-11-24 19:32] LABS: Alanine Aminotransferase 16.0 U/L (7-52); Albumin Globulin Ratio 1.1 (0.9-2); Alkaline Phosphatase 103.0 U/L (34-104); Anion Gap 14.0 (3-11); Bilirubin,Total 0.3 mg/dl (0.2-1.0); Blood Urea Nitrogen 3.0 mg/dl (6-23); Calcium 8.9 mg/dl (8.6-10.3); Carbon Dioxide 25.0 mmol/L (21-32); Chloride 84.0 mmol/L (98-107); Creatinine Clr Calc Pharmacy 81.5 ml/min; Globulin 3.7 gm/dl (2.5-4.0); Glucose 88.0 mg/dl (70-99(Fasting)); Magnesium 1.7 mg/dl (1.7-2.4); Potassium 2.8 mmol/L (3.5-5.1); Sodium 123.0 mmol/L (136-145); Total Protein 7.6 gm/dl (6.0-8.3)
[2024-11-24 19:47] LABS: Thyroid Stimulating Hormone 1.792 uIu/ml (0.300-4.500)
[2024-11-24 19:51] LABS: Acetaminophen < 3 ug/ml (10-30); Salicylate < 3.0 mg/dl (3.0-30)
[2024-11-24] MEDS: POTASSIUM CHLORIDE / WTR 10 MEQ/100 ML PLCT IV SCH (19:55)
[2024-11-24] MEDS: MAGNESIUM SULFATE / D5W 1 GM/100 ML BAG IV STA (19:55)
[2024-11-24] MEDS: FOLIC ACID 1 MG in SYRINGE 9.8 ML IV STA (20:07)
[2024-11-24] MEDS: THIAMINE HCL 100 MG in SYRINGE 9 ML IV STA (20:07)
[2024-11-24 20:28] LABS: INR 0.9 (0.9-1.1); Prothrombin Time 10.1 Seconds (9.0-12.0)
[2024-11-24 20:54] LABS: Appearance Urine Clear (Clear); Bacteria Urine Automated 4+ (None Seen); Cast Urine Automated 0-2 /lpf (0-2); Epithelial Cell Urine Auto 0-2 /hpf (0-2); Glucose Urine UA Negative (Negative); RBC Urine Automated 0-2 /hpf (0-2)
--- NOTE | 2024-11-24 21:09 | History & Physical Report ---
Date of Service November 24, 2024 Assessment & Plan (1) Alcohol abuse: (2) Alcoholic intoxication: (3) Hypokalemia: (4) Hyponatremia: Plan The patient is a 69-year-old female with a past medical history including alcohol abuse/alcohol withdrawal seizures, hyponatremia, anxiety and depression, hypomagnesemia, and hypokalemia. She presents to the emergency department with concerns regarding her continued alcohol abuse, concerns regarding possible alcohol withdrawal as she stops drinking, which she reports she was today. She drinks an average of 6-8 beers a day, including today. She was admitted from 09/18-09/21/2024 for alcohol withdrawal and concerns regarding excessive alcohol use at that time as well. She does have a history of alcohol withdrawal seizures as noted, but has not had significant issues related to change in mental status, tremors, or seizure-like activity. She is referred to [facility] for further evaluation and treatment. Alcohol abuse/alcohol intoxication- Most recent hospitalization for the same was on 09/18-09/21/2024. She did leave AMA on 09/21/2024 Patient reports that she continues to drink and averages 6-8 beers daily She would like to stop, but is concerned about the possibility of withdrawal Alcohol level 200.6 on admission Placed on AWSS protocol with IV Ativan Thiamine 100 mg p.o. every morning Folic acid 1 mg p.o. every morning Placed on NSS plus KCl 20 mEq at 100 mL/h x 2 L Zofran 4 mg IV every 6 hours as needed Admit to monitored bed Electrolyte disturbances: Hyponatremia, hypokalemia, and hypomagnesemia- Sodium 123, potassium 2.8, and magnesium 1.7 From the ED patient received the following: Magnesium sulfate 1 g IV, potassium chloride 10 mEq IV riders x 2 NSS + KCl 20 mill equivalents at 100 mL/h x 2 L Serial CBCD, CMP and magnesium levels every morning BMP every 6 hours x 24 hours UTI- Follow urine culture and sensitivity UTI from 09/20/2024 grew E. coli resistant to ampicillin, quinolones, gentamicin, intermediate to tobramycin Ceftriaxone 2 g IV every 24 hours History of Present Illness Chief Complaint: The patient presents to the emergency department with concerns regarding potential alcohol withdrawal, and to have questions about detox. She reports to average of 6-8 beers a day, including today. Her most recent hospitalization was from 09/18-09/21/2024 for similar concerns regarding potential alcohol wi thdrawal and increased alcohol use. Primary Care Provider: Ximena Lagos MD The patient is a 69-year-old female with a past medical history including alcohol abuse/alcohol withdrawal seizures, hyponatremia, anxiety and depression, hypomagnesemia, and hypokalemia. She presents to the emergency department with concerns regarding her continued alcohol abuse, concerns regarding possible alcohol withdrawal as she stops drinking, which she reports she was today. She drinks an average of 6-8 beers a day, including today. She was admitted from 09/18-09/21/2024 for alcohol withdrawal and concerns regarding excessive alcohol use at that time as well. She does have a history of alcohol withdrawal seizures as noted, but has not had significant issues related to change in mental status, tremors, or seizure-like activity. She is referred to [facility] for further evaluation and treatment. Allergies Allergy/AdvReac Type Severity Reaction Status Date / Time No Known Allergies Allergy Unverified 10/11/24 11:34 Home Medications Medication Instructions Recorded Confirmed Type No Known Home Medications 11/24/24 11/24/24 History Past Med/Surg History Problem List (Updated 11/24/24 @ 22:18 by Amor Tomas M.D.) Alcohol abuse (Acute) Hypokalemia (Acute) Alcoholic intoxication (Acute) Laceration of scalp (Acute) CHI (closed head injury) (Acute) Transaminitis (Acute) Hyponatremia (Acute) Anxiety Depression Alcohol use disorder (Acute) Systolic ejection murmur Medical History Drug abuse history History of seizure due to alcohol withdrawal Hypertension Surgical History H/O tubal ligation Family History Mother Breast cancer, Onset Age: 66 Brother Family history of alcohol abuse Grandfather Myocardial infarction Other Family history non-contributory Denies family history of Ovarian cancer Prostate cancer Colorectal cancer Social History Smoking Status: Current every day smoker Tobacco Type: Cigarettes Age Started Using Tobacco: 19; packs per day: 1; Cigarettes Per Day: 20; Second Hand Exposure: No; Do You Dip or Chew Tobacco: No; Hx Alcohol Use: Yes Alcohol type: beer Alcohol Intake Frequency: 4 or More x per/Week Alcohol Intake Frequency Comment: 2 daily Hx Substance Use: No Preferred Language: Zimbabwean Communication Ability: Effective Laboratory Cureman Required: No Beliefs That Will Affect Care: Baptist Baptist Beliefs: Episcopal marital status: / Current Living Situation: Alone Current Living Situation Comment: lives in an apartment Feels Safe at Home: Yes Diet: regular caffeine: Yes Dental Care, Regularly: No Physical Activity Frequency: Daily Physical Activity Frequency Comment: walks the dog Seatbelt Use: never Sunscreen Use: No Assistive Devices: Glasses Review of Systems Review of Systems: The patient denies chest pain, palpitations, shortness of breath, dyspnea on exertion, cough, lower extremity swelling, sore throat, fevers, chills, sweats, weight change, fatigue, nausea, vomiting, diarrhea , constipation, abdominal pain, pelvic pain, blood in urine or stool, dysuria, urinary frequency or urgency, lightheadedness, dizziness, headache, memory loss, loss of consciousness, rash, abnormal bruising or bleeding, imbalance, focal or generalized weakness, numbness or tingling in arms or legs, generalized arthralgias or myalgias, back or neck pain, or night sweats. The review of systems is otherwise negative other than for that already noted a nikia, and at least 10 systems have been reviewed. Physical Exam Physical Exam: The patient is awake, alert and oriented 3, well developed and well nourished, normocephalic and atraumatic, lying in bed and in no acute distress. HEENT--PERRL, EOMI, mucous membranes and oropharynx normal Neck--supple. No JVD. No bruits. Thyroid normal, trachea midline, no adenopathy. Heart--normal S1 and S2. No murmurs, rubs or gallops. Lungs--clear bilaterally, no respiratory distress, no accessory muscle use. Abdomen--normal bowel sounds and soft. Nontender. Nondistended, no hernias or masses, no organomegaly. Extremities--no cyanosis or clubbing. No edema. There are good distal pulses b/l. Dermatologic--normal skin turgor, normal color, no abnormal lymph nodes, no rash. Neurologic--cranial nerves II through XII grossly intact. Rheumatologic--normal range of motion. Psychiatric--normal affect. Results & Data Results & Data Vital Signs (Past 12 Hours) Vital Signs Temp Pulse Pulse Resp BP BP Pulse Ox 11/24/24 21:00 82 18 154/74 H 98 11/24/24 19:03 137/73 100 11/24/24 19:03 100 11/24/24 18:52 91 H 11/24/24 18:27 36.6 C 110 H 20 124/82 95 O2 Del Method 11/24/24 21:00 Room Air 11/24/24 19:03 Room Air 11/24/24 19:03 Room Air 11/24/24 18:52 11/24/24 18:27 Room Air Laboratory Results Laboratory Results WBC 5.03 K/ul (4.8-10.8) 11/24/24 19:00 RBC 4.23 M/uL (4.20-5.40) 11/24/24 19:00 Hgb 13.5 g/dl (12.0-16.0) 11/24/24 19:00 Hct 37.9 % (37.0-47.0) 11/24/24 19:00 MCV 89.6 fL (80.0-100.0) 11/24/24 19:00 MCH 31.9 pg (25.0-34.0) 11/24/24 19:00 MCHC 35.6 g/dL (32.0-36.0) 11/24/24 19:00 RDW Std Deviation 41.5 fL (36.4-46.3) 11/24/24 19:00 RDW Coeff of Vignesh 12.6 % (11.5-14.5) 11/24/24 19:00 Plt Count 176 K/uL (130-400) 11/24/24 19:00 MPV 9.5 fL (9.4-12.4) 11/24/24 19:00 Immature Gran % (Auto) 0.6 % 11/24/24 19:00 Neut % (Auto) 54.7 % 11/24/24 19:00 Lymph % (Auto) 35.8 % 11/24/24 19:00 [place] % (Auto) 8.3 % 11/24/24 19:00 Eos % (Auto) 0.4 % 11/24/24 19:00 Baso % (Auto) 0.2 % 11/24/24 19:00 Neut # (Auto) 2.75 K/uL (1.40-6.50) 11/24/24 19:00 Lymph # (Auto) 1.80 K/uL (1.20-3.40) 11/24/24 19:00 [place] # (Auto) 0.42 K/uL (0.11-0.59) 11/24/24 19:00 Eos # (Auto) 0.02 K/uL (0.00-0.50) 11/24/24 19:00 Baso # (Auto) 0.01 K/uL (0.00-0.20) 11/24/24 19:00 Immature Gran # (Auto) 0.03 K/uL (0.01-0.20) 11/24/24 19:00 PT 10.1 Seconds (9.0-12.0) 11/24/24 19:00 INR 0.9 (0.9-1.1) 11/24/24 19:00 Sodium 123 mmol/L (136-145) L 11/24/24 19:00 Potassium 2.8 mmol/L (3.5-5.1) L 11/24/24 19:00 Chloride 84 mmol/L (98-107) L 11/24/24 19:00 Carbon Dioxide 25 mmol/L (21-32) 11/24/24 19:00 Anion Gap 14 (3-11) H 11/24/24 19:00 BUN 3 mg/dl (6-23) L 11/24/24 19:00 Creatinine 0.51 mg/dl (0.6-1.2) L 11/24/24 19:00 Est Cr Clr Drug Dosing 81.5 ml/min 11/24/24 19:00 eGFR 101.61 11/24/24 19:00 BUN/Creatinine Ratio 5.9 (10-20) L 11/24/24 19:00 Glucose 88 mg/dl (70-99(Fasting)) 11/24/24 19:00 Osmolality 301 mOsm/kg (280-300) H 11/24/24 19:00 Calcium 8.9 mg/dl (8.6-10.3) 11/24/24 19:00 Magnesium 1.7 mg/dl (1.7-2.4) 11/24/24 19:00 Total Bilirubin 0.3 mg/dl (0.2-1.0) 11/24/24 19:00 AST 47 U/L (13-39) H 11/24/24 19:00 ALT 16 U/L (7-52) 11/24/24 19:00 Alkaline Phosphatase 103 U/L (34-104) 11/24/24 19:00 Total Protein 7.6 gm/dl (6.0-8.3) 11/24/24 19:00 Albumin 3.9 gm/dl (3.4-5.0) 11/24/24 19:00 Globulin 3.7 gm/dl (2.5-4.0) 11/24/24 19:00 Albumin/Globulin Ratio 1.1 (0.9-2) 11/24/24 19:00 TSH 1.792 uIu/ml (0.300-4.500) 11/24/24 19:00 Urine Color Yellow 11/24/24 20:37 Urine Appearance Clear (Clear) 11/24/24 20:37 Urine pH 5.5 (4.5-7.5) 11/24/24 20:37 Ur Specific [place] 1.004 (1.000-1.030) 11/24/24 20:37 Urine Protein Negative (Negative) 11/24/24 20:37 Urine Glucose (UA) Negative (Negative) 11/24/24 20:37 Urine Ketones Negative (Negative) 11/24/24 20:37 Urine Blood Negative (Negative) 11/24/24 20:37 Urine Nitrite Negative (Negative) 11/24/24 20:37 Urine Bilirubin Negative (Negative) 11/24/24 20:37 Urine Urobilinogen Negative (Negative) 11/24/24 20:37 Ur Leukocyte Esterase 1+ (Negative) H 11/24/24 20:37 Urine WBC (Auto) 6-10 /hpf (0-5) H 11/24/24 20:37 Urine RBC (Auto) 0-2 /hpf (0-2) 11/24/24 20:37 U Hyaline Cast (Auto) 0-2 /lpf (0-2) 11/24/24 20:37 U Epithel Cells (Auto) 0-2 /hpf (0-2) 11/24/24 20:37 Urine Bacteria (Auto) 4+ (None Seen) H 11/24/24 20:37 Urine Osmolality 115 mOsm/kg (500-800) L 11/24/24 20:37 Urine Comment 11/24/24 20:37 Salicylates < 3.0 mg/dl (3.0-30) L 11/24/24 19:00 Urine Opiates Screen Neg (Neg) 11/24/24 20:37 Ur Methadone, Qual Neg (Neg) 11/24/24 20:37 Urine Fentanyl Screen Neg (Neg) 11/24/24 20:37 Acetaminophen < 3 ug/ml (10-30) L 11/24/24 19:00 Urine Barbiturates Neg (Neg) 11/24/24 20:37 Ur Phencyclidine (PCP) Neg (Neg) 11/24/24 20:37 U Amphetamin/Meth Scrn Neg (Neg) 11/24/24 20:37 MDMA (Ecstasy) Screen Neg (Neg) 11/24/24 20:37 U Benzodiazepines Scrn Neg (Neg) 11/24/24 20:37 Ur Cocaine Metabolite Neg (Neg) 11/24/24 20:37 U Marijuana (THC) Screen Neg (Neg) 11/24/24 20:37 Ethyl Alcohol mg/dL 200.6 mg/dl (<10.0) H 11/24/24 19:00 Code Status & VTE Plan Code Status Full code VTE Prophylaxis Plan VTE Prophylaxis will be ordered: Yes PG Care Time/CCT Total # of Minutes Spent Total Time Spent with Patient: Total time spent is greater than 50% in coordination of care (as documented) at patient's floor/unit and/or counseling patient: Coding Level of Care Code 57178 INT INP/OBS CARE 3/75MIN Diagnoses Alcohol abuse F10.10 Alcoholic intoxication F10.929 Hypokalemia E87.6 Hyponatremia E87.1
[2024-11-24 21:42] LABS: Amphetamines+Metham, Urine Neg (Neg); MDMA (Ecstacy), Urine Neg (Neg); Marijuana, Urine Neg (Neg)
[2024-11-24] MEDS ORDERED: ONDANSETRON INJ 2 MG/ML 2 ML VIAL IV PRN (22:39)
[2024-11-24] MEDS ORDERED: Ativan IV Alcohol Withdrawal--Active Protocol IV PRN (22:39)
[2024-11-24] MEDS ORDERED: ACETAMINOPHEN 325 MG TAB PO PRN (22:39)
[2024-11-24] MEDS: NSS + 20MEQ KCL 20 MEQ/1,000 ML BAG IV SCH (22:52)
[2024-11-25 00:27] LABS: Anion Gap 10.0 (3-11); Blood Urea Nitrogen 3.0 mg/dl (6-23); Calcium 8.4 mg/dl (8.6-10.3); Carbon Dioxide 24.0 mmol/L (21-32); Chloride 89.0 mmol/L (98-107); Creatinine Clr Calc Pharmacy 91.6 ml/min; Glucose 90.0 mg/dl (70-99(Fasting)); Potassium 3.4 mmol/L (3.5-5.1); Sodium 123.0 mmol/L (136-145)
[2024-11-25] MEDS: cefTRIAXone SODIUM 2,000 MG/50 ML BAG IV SCH (00:44)
[2024-11-25 03:05] LABS: Hematocrit (blood only) 35.2 % (37.0-47.0); Hemoglobin 12.5 g/dl (12.0-16.0); Immature Granulocytes # (auto) 0.01 K/uL (0.01-0.20); Immature Granulocytes % (auto) 0.3 %; Mean Corpuscular Hemoglobin 31.6 pg (25.0-34.0); Mean Corpuscular Volume 88.9 fL (80.0-100.0); Platelet Count 163 K/uL (130-400); RDW Standard Deviation 41.0 fL (36.4-46.3); Red Blood Count 3.96 M/uL (4.20-5.40); White Blood Count 3.25 K/ul (4.8-10.8)
[2024-11-25 03:21] LABS: Anion Gap 11.0 (3-11); Blood Urea Nitrogen 3.0 mg/dl (6-23); Calcium 8.4 mg/dl (8.6-10.3); Carbon Dioxide 23.0 mmol/L (21-32); Chloride 92.0 mmol/L (98-107); Creatinine Clr Calc Pharmacy 98.2 ml/min; Glucose 87.0 mg/dl (70-99(Fasting)); Potassium 3.5 mmol/L (3.5-5.1); Sodium 126.0 mmol/L (136-145)
[2024-11-25 03:22] LABS: Alanine Aminotransferase 13.0 U/L (7-52); Albumin Globulin Ratio 1.0 (0.9-2); Alkaline Phosphatase 89.0 U/L (34-104); Anion Gap 13.0 (3-11); Bilirubin,Total 0.3 mg/dl (0.2-1.0); Blood Urea Nitrogen 3.0 mg/dl (6-23); Calcium 8.4 mg/dl (8.6-10.3); Carbon Dioxide 22.0 mmol/L (21-32); Chloride 92.0 mmol/L (98-107); Creatinine Clr Calc Pharmacy 98.2 ml/min; Globulin 3.3 gm/dl (2.5-4.0); Glucose 82.0 mg/dl (70-99(Fasting)); Magnesium 1.9 mg/dl (1.7-2.4); Potassium 3.6 mmol/L (3.5-5.1); Sodium 127.0 mmol/L (136-145); Total Protein 6.6 gm/dl (6.0-8.3)
[2024-11-25] MEDS: NICOTINE 14 MG/24 HR PATCH TD SCH (06:24)
[2024-11-25 07:13] LABS: Anion Gap 8.0 (3-11); Blood Urea Nitrogen 3.0 mg/dl (6-23); Calcium 8.3 mg/dl (8.6-10.3); Carbon Dioxide 26.0 mmol/L (21-32); Chloride 95.0 mmol/L (98-107); Creatinine Clr Calc Pharmacy 95.9 ml/min; Glucose 89.0 mg/dl (70-99(Fasting)); Potassium 3.9 mmol/L (3.5-5.1); Sodium 129.0 mmol/L (136-145)
[2024-11-25] MEDS: FOLIC ACID 1 MG TAB PO SCH (08:54)
[2024-11-25] MEDS: THIAMINE HCL 100 MG TAB PO SCH (08:54)
[2024-11-25 10:02] LABS: Anion Gap 8.0 (3-11); Blood Urea Nitrogen 5.0 mg/dl (6-23); Calcium 8.6 mg/dl (8.6-10.3); Carbon Dioxide 25.0 mmol/L (21-32); Chloride 96.0 mmol/L (98-107); Creatinine Clr Calc Pharmacy 85.9 ml/min; Glucose 98.0 mg/dl (70-99(Fasting)); Potassium 4.1 mmol/L (3.5-5.1); Sodium 129.0 mmol/L (136-145)
--- NOTE | 2024-11-25 14:51 | Hospitalist Progress Note ---
Date of Service November 25, 2024 Assessment & Plan (1) Alcohol abuse: Plan: Chronic ETOH abuse since patient was 17 years old to the present day (11/24/2024). Patient concedes that she is an alcoholic and underwent voluntary detox from chronic ETOH abuse for 9 days in an inpatient ETOH detox program in 2022. Patient does not want to undergo inpatient ETOH detox at the present time. (2) Alcoholic intoxication: Plan: RESOLVED with no signs of acute ETOH intoxication and/or acute ETOH withdrawal on 11/25/2024. cf., admitting serum ETOH level of 200.6 mg/dL (11/24/2024, 7:00pm). Continue CIWA scale scoring, lorazepam 1mg IV UD prn CIWA score 6-7 points, lorazepam 2mg IV UD prn CIWA score 8-9 points, and lorazepam 3mg IV once prn CIWA score 10+ points. (3) Hypokalemia: Plan: cf., K 2.8 mmol/L (11/24/2024, 7:00pm). cf., K 3.4 mmol/L (11/24/2024, 11:25pm). cf., K 3.5 mmol/L (11/25/2024, 2:31am). cf., K 3.6 mmol/L (11/25/2024, 2:31am). cf., K 3.9 mmol/L (11/25/2024, 6:23am). cf., K 4.1 mmol/L (11/25/2024, 9:33am). cf., baseline K range, 3.5-3.9 mmol/L (12/03/2021 - 09/21/2024). Etiology of acute hypokalemia was most likely due to chronic ETOH-mediated iris- uresis. Acute hypokalemia RESOLVED with patient OFF chronic ETOH imbibition and on: 1. KCl 10meq in 100mL @ 100 mL/hr IV q1h x 2 doses (11/24/2024, 7:55pm, 9:14pm). 2. KCl 20meq in 1000mL @ 100 mL/hr IV q1h x 2 doses (11/24/2024, 10:52pm; 11/25/2024, 8:56am). I will check repeat K level in the 11/26/2024 am. (4) Hyponatremia: Plan: cf., Na 123 mmol/L (11/24/2024, 7:00pm). cf., Na 123 mmol/L (11/24/2024, 11:25pm). cf., Na 126 mmol/L (11/25/2024, 2:31am). cf., Na 127 mmol/L (11/25/2024, 2:31am). cf., Na 129 mmol/L (11/25/2024, 6:23am). cf., Na 129 mmol/L (11/25/2024, 9:33am). cf., baseline Na range, 136-139 mmol/L (12/03/2021 - 09/21/2024). Etiology of acute hypovolemic hyponatremia is most likely due to chronic ETOH- mediated natri-uresis. Acute hypovolemic hyponatremia is RESOLVING well with patient OFF chronic ETOH imbibition and OFF IV fluid rehydration therapy. I will check repeat Na level in the 11/26/2024 am. (5) Tobacco abuse: Plan: Smoking cessation counselling 16 minutes given. Patient agrees to quit smoking tobacco while in [facility]. Patient accepts offer of nicotine replacement utilizing nicotine patch 14mg TD qam (start date/time, 11/25/2024, 6:24am). Plan The patient is a 69-year-old female with a past medical history including alcohol abuse/alcohol withdrawal seizures, hyponatremia, anxiety and depression, hypomagnesemia, and hypokalemia. She presents to the emergency department with concerns regarding her continued alcohol abuse, concerns regarding possible alcohol withdrawal as she stops drinking, which she reports she was today. She drinks an average of 6-8 beers a day, including today. She was admitted from 09/18-09/21/2024 for alcohol withdrawal and concerns regarding excessive alcohol use at that time as well. She does have a history of alcohol withdrawal seizures as noted, but has not had significant issues related to change in mental status, tremors, or seizure-like activity. [facility]. Alcohol abuse/alcohol intoxication- Most recent hospitalization for the same was on 09/18-09/21/2024. She did leave AMA on 09/21/2024 Patient reports that she continues to drink and averages 6-8 beers daily She would like to stop, but is concerned about the possibility of withdrawal Alcohol level 200.6 on admission Placed on AWSS protocol with IV Ativan Thiamine 100 mg p.o. every morning Folic acid 1 mg p.o. every morning Placed on NSS plus KCl 20 mEq at 100 mL/h x 2 L Zofran 4 mg IV every 6 hours as needed Admit to monitored bed Electrolyte disturbances: Hyponatremia, hypokalemia, and hypomagnesemia- Sodium 123, potassium 2.8, and magnesium 1.7 From the ED patient received the following: Magnesium sulfate 1 g IV, potassium chloride 10 mEq IV riders x 2 NSS + KCl 20 mill equivalents at 100 mL/h x 2 L Serial CBCD, CMP and magnesium levels every morning BMP every 6 hours x 24 hours UTI- Follow urine culture and sensitivity UTI from 09/20/2024 grew E. coli resistant to ampicillin, quinolones, gentamicin, intermediate to tobramycin Ceftriaxone 2 g IV every 24 hours Admission and Anticipated Discharge Date Admission Date: November 24, 2024 Subjective "I am better today. I know I am an alcoholic. I don't have the shakes or tremors or chills. I am not withdrawing from alcohol. Can I go home tomorrow?" Review of Systems Constitutional: Negative for antecedent/coincident fevers, chills, diaphoresis, cough, wheeze, sore throat, hemoptysis, shortness of breath, dyspnea on exertion, chest pains, palpitations, pleurisy, nausea, vomiting, diarrhea, abdominal pain, pelvic pain, hematemesis, hematochezia, melena, hematuria, dysuria, frequency, urgency, flank pain, headaches, dizziness, lightheadedness, visual changes, hearing changes, weakness, falls, syncope, trauma, travel history, sick contacts, or food/drug ingestions novel or new. All other review of systems are reported as negative by the patient on 11/25/2024. Physical Exam Constitutional: General: Comfortable, cooperative, coherent. Wide awake and alert. Not confused, lethargic, or obtunded. Patient speaks in complete, fluent, and articulate sentences without pause, interruption, cough, or wheeze. HEENT: Normocephalic, atraumatic. Extra-ocular muscles intact. Pupils equally round and reactive to light. No nystagmus, gaze paresis, anisocoria, miosis, mydriasis, hyphema, chemosis, scleral injection, conjunctivitis, or pterygium. No otorrhea or rhinorrhea. No pharyngeal discharge or exudate. Neck: Supple, no stridor or bruit. Jugular venous pressure is estimated to be 3 cm above the sternal angle of Agustin, which is, by definition, 5 cm above the level of the right atrium. Hence, jugular venous pressure of 8 cm is not elevated on 11/25/2024. Lymphatics: No anterior/posterior cervical, infraclavicular, supraclavicular, axillary, epitrochlear, or inguinal adenopathy. Chest: Symmetric rise and fall with respirations. Non-tender to palpation. Lungs: Clear to auscultation and percussion. No audible expiratory wheeze, egophony, pectoriloquy, increase in tactile fremitus, or flatness/dullness to percussion at the bases. Heart: Regular rate and rhythm. S1 and S2 noted. No S3 or S4 summation gallop. No tripartite friction rub. Grade II/ early systolic murmur at left lower sternal border without radiation to the carotids, axilla, or back, and which remains invariant in regards to the respiratory cycle. Abdomen: Soft, non-tender, non-distended. No rebound, guarding, Jay's sign, or organomegaly. Bowel sounds auscultated in all 4 quadrants. Extremities: No clubbing, cyanosis, or edema. Skin: No decubitus ulcer, exanthem, or enanthem. Urology: No pizarro catheter. No purewick. No urethral discharge. Neurology: Alert and oriented in regards to person, place, time, and situation. 5/5 motor strength in all 4 extremities, proximally and distally. DTR+. No myoclonus, tremors, or tics. Psychiatry: No flat affect. No monotone voice. Smiles appropriately. Results & Data Results & Data Vital Signs (Past 12 Hours) Vital Signs Temp Pulse Pulse Resp BP Pulse Ox O2 Del Method 11/25/24 11:54 36.7 C 103 H 18 136/65 93 Room Air 11/25/24 09:00 79 11/25/24 08:01 36.6 C 92 H 18 132/64 95 Room Air 11/25/24 02:47 36.7 C 83 16 130/63 93 Room Air Laboratory Results Abnormal lab results 11/24/24 11/24/24 11/24/24 Range/Units 19:00 20:37 23:25 WBC (4.8-10.8) K/ul RBC (4.20-5.40) M/uL Hct (37.0-47.0) % Sodium 123 L 123 L (136-145) mmol/L Potassium 2.8 L 3.4 L D (3.5-5.1) mmol/L Chloride 84 L 89 L (98-107) mmol/L Anion Gap 14 H (3-11) BUN 3 L 3 L (6-23) mg/dl Creatinine 0.51 L 0.45 L (0.6-1.2) mg/dl BUN/Creatinine Ratio 5.9 L 6.7 L (10-20) Osmolality 301 H (280-300) mOsm/kg Calcium 8.4 L (8.6-10.3) mg/dl AST 47 H (13-39) U/L Albumin (3.4-5.0) gm/dl Ur Leukocyte Esterase 1+ H (Negative) Urine WBC (Auto) 6-10 H (0-5) /hpf Urine Bacteria (Auto) 4+ H (None Seen) Urine Osmolality 115 L (500-800) mOsm/kg Salicylates < 3.0 L (3.0-30) mg/dl Acetaminophen < 3 L (10-30) ug/ml Ethyl Alcohol mg/dL 200.6 H (<10.0) mg/dl 11/25/24 11/25/24 11/25/24 Range/Units 02:31 02:31 02:31 WBC 3.25 L (4.8-10.8) K/ul RBC 3.96 L (4.20-5.40) M/uL Hct 35.2 L (37.0-47.0) % Sodium 126 L 127 L (136-145) mmol/L Potassium (3.5-5.1) mmol/L Chloride 92 L 92 L (98-107) mmol/L Anion Gap 13 H (3-11) BUN 3 L (6-23) mg/dl Creatinine (0.6-1.2) mg/dl BUN/Creatinine Ratio (10-20) Osmolality (280-300) mOsm/kg Calcium (8.6-10.3) mg/dl AST (13-39) U/L Albumin (3.4-5.0) gm/dl Ur Leukocyte Esterase (Negative) Urine WBC (Auto) (0-5) /hpf Urine Bacteria (Auto) (None Seen) Urine Osmolality (500-800) mOsm/kg Salicylates (3.0-30) mg/dl Acetaminophen (10-30) ug/ml Ethyl Alcohol mg/dL (<10.0) mg/dl 11/25/24 11/25/24 11/25/24 Range/Units 02:31 02:31 02:31 WBC (4.8-10.8) K/ul RBC (4.20-5.40) M/uL Hct (37.0-47.0) % Sodium (136-145) mmol/L Potassium (3.5-5.1) mmol/L Chloride (98-107) mmol/L Anion Gap (3-11) BUN 3 L (6-23) mg/dl Creatinine 0.42 L 0.42 L (0.6-1.2) mg/dl BUN/Creatinine Ratio 7.1 L 7.1 L (10-20) Osmolality (280-300) mOsm/kg Calcium 8.4 L (8.6-10.3) mg/dl AST (13-39) U/L Albumin (3.4-5.0) gm/dl Ur Leukocyte Esterase (Negative) Urine WBC (Auto) (0-5) /hpf Urine Bacteria (Auto) (None Seen) Urine Osmolality (500-800) mOsm/kg Salicylates (3.0-30) mg/dl Acetaminophen (10-30) ug/ml Ethyl Alcohol mg/dL (<10.0) mg/dl 11/25/24 11/25/24 11/25/24 Range/Units 02:31 06:23 09:33 WBC (4.8-10.8) K/ul RBC (4.20-5.40) M/uL Hct (37.0-47.0) % Sodium 129 L 129 L (136-145) mmol/L Potassium (3.5-5.1) mmol/L Chloride 95 L 96 L (98-107) mmol/L Anion Gap (3-11) BUN 3 L 5 L (6-23) mg/dl Creatinine 0.43 L 0.48 L (0.6-1.2) mg/dl BUN/Creatinine Ratio 7.0 L (10-20) Osmolality (280-300) mOsm/kg Calcium 8.4 L 8.3 L (8.6-10.3) mg/dl AST 41 H (13-39) U/L Albumin 3.3 L (3.4-5.0) gm/dl Ur Leukocyte Esterase (Negative) Urine WBC (Auto) (0-5) /hpf Urine Bacteria (Auto) (None Seen) Urine Osmolality (500-800) mOsm/kg Salicylates (3.0-30) mg/dl Acetaminophen (10-30) ug/ml Ethyl Alcohol mg/dL (<10.0) mg/dl PG Care Time/CCT Total # of Minutes Spent Total Time Spent with Patient: Total time spent is greater than 50% in coordination of care (as documented) at patient's floor/unit and/or counseling patient: Coding Level of Care Code 71948 SUB INP/OBS CARE 3/50MIN Diagnoses Alcohol abuse F10.10 Alcoholic intoxication F10.929 Hypokalemia E87.6 Hyponatremia E87.1 Tobacco abuse Z72.0
[2024-11-25 15:46] LABS: Anion Gap 10.0 (3-11); Blood Urea Nitrogen 6.0 mg/dl (6-23); Calcium 8.8 mg/dl (8.6-10.3); Carbon Dioxide 22.0 mmol/L (21-32); Chloride 98.0 mmol/L (98-107); Creatinine Clr Calc Pharmacy 77.8 ml/min; Glucose 97.0 mg/dl (70-99(Fasting)); Potassium 4.0 mmol/L (3.5-5.1); Sodium 130.0 mmol/L (136-145)
[2024-11-25 19:05] LABS: Anion Gap 8.0 (3-11); Blood Urea Nitrogen 7.0 mg/dl (6-23); Calcium 8.9 mg/dl (8.6-10.3); Carbon Dioxide 24.0 mmol/L (21-32); Chloride 99.0 mmol/L (98-107); Creatinine Clr Calc Pharmacy 57.3 ml/min; Glucose 139.0 mg/dl (70-99(Fasting)); Potassium 4.0 mmol/L (3.5-5.1); Sodium 131.0 mmol/L (136-145)
[2024-11-25] MEDS: MELATONIN 3 MG TAB PO PRN (23:57)
[2024-11-26 07:47] LABS: Hematocrit (blood only) 38.0 % (37.0-47.0); Hemoglobin 12.6 g/dl (12.0-16.0); Immature Granulocytes # (auto) 0.01 K/uL (0.01-0.20); Immature Granulocytes % (auto) 0.2 %; Mean Corpuscular Hemoglobin 31.6 pg (25.0-34.0); Mean Corpuscular Volume 95.2 fL (80.0-100.0); Platelet Count 191 K/uL (130-400); RDW Standard Deviation 45.7 fL (36.4-46.3); Red Blood Count 3.99 M/uL (4.20-5.40); White Blood Count 4.14 K/ul (4.8-10.8)
[2024-11-26 07:56] LABS: Alanine Aminotransferase 14.0 U/L (7-52); Albumin Globulin Ratio 1.1 (0.9-2); Alkaline Phosphatase 98.0 U/L (34-104); Anion Gap 9.0 (3-11); Bilirubin,Total 0.5 mg/dl (0.2-1.0); Blood Urea Nitrogen 4.0 mg/dl (6-23); Calcium 9.0 mg/dl (8.6-10.3); Carbon Dioxide 26.0 mmol/L (21-32); Chloride 96.0 mmol/L (98-107); Creatinine Clr Calc Pharmacy 91.6 ml/min; Globulin 3.4 gm/dl (2.5-4.0); Glucose 90.0 mg/dl (70-99(Fasting)); Magnesium 1.7 mg/dl (1.7-2.4); Potassium 3.3 mmol/L (3.5-5.1); Sodium 131.0 mmol/L (136-145); Total Protein 7.2 gm/dl (6.0-8.3)
[2024-11-26] MEDS: REMOVE NICODERM PATCH SCH (08:07)
[2024-11-26] MEDS: cefTRIAXone SODIUM 1,000 MG/50 ML BAG IV ONE (09:19)
[2024-11-26] MEDS: POTASSIUM CHLORIDE CRTAB 20 MEQ TABCR PO STA (14:31)
[2024-11-26] MEDS: MAGNESIUM SULFATE / D5W 1 GM/100 ML BAG IV SCH (14:31)
--- NOTE | 2024-11-26 19:31 | Discharge Summary ---
Discharge Summary Date of Service November 26, 2024 Principal Dx & Hospital Course #1 = Principal Diagnosis (1) Alcohol abuse: Chronic ETOH abuse since patient was 17 years old to the present day (11/24/2024). Patient concedes that she is an alcoholic and underwent voluntary detox from chronic ETOH abuse for 9 days in an inpatient ETOH detox program in 2022. Patient does not want to undergo inpatient ETOH detox at the present time. (2) Alcoholic intoxication: RESOLVED with no signs of acute ETOH intoxication and/or acute ETOH withdrawal on 11/25/2024 - 11/26/2024. cf., admitting serum ETOH level of 200.6 mg/dL (11/24/2024, 7:00pm). cf., discharge serum ETOH level < 10.0 mg/dL (11/26/2024, 10:22am). Patient underwent CIWA scale scoring, lorazepam 1mg IV UD prn CIWA score 6-7 points, lorazepam 2mg IV UD prn CIWA score 8-9 points, and lorazepam 3mg IV once prn CIWA score 10+ points while in [facility] Med-Surg bed #S236-1. Patient was subsequently discharged back to her home on 11/26/2024 with an electronic prescription for a chlordiazepoxide taper (see below) transmitted to her [facility] store [id number], [address], [place] [address]: Day #1: chlordiazepoxide 25mg tablet PO q 4 x 4 doses/tablets. Day #2: chlordiazepoxide 25mg tablet PO q 8 x 4 doses/tablets. Day #3: chlordiazepoxide 25mg tablet PO q12 x 2 doses/tablets. Day #4: chlordiazepoxide 25mg tablet PO qhs x 1 dose/tablet. Day #5: observe off chlordiazepoxide. (3) Hypokalemia: cf., K 2.8 mmol/L (11/24/2024, 7:00pm). cf., K 3.4 mmol/L (11/24/2024, 11:25pm). cf., K 3.5 mmol/L (11/25/2024, 2:31am). cf., K 3.6 mmol/L (11/25/2024, 2:31am). cf., K 3.9 mmol/L (11/25/2024, 6:23am). cf., K 4.1 mmol/L (11/25/2024, 9:33am). cf., K 3.3 mmol/L (11/26/2024, 6:59am). cf., baseline K range, 3.5-3.9 mmol/L (12/03/2021 - 09/21/2024). Etiology of acute hypokalemia was most likely due to chronic ETOH-mediated iris- uresis. Acute hypokalemia RESOLVED with patient OFF chronic ETOH imbibition and on: 1. KCl 10meq in 100mL @ 100 mL/hr IV q1h x 2 doses (11/24/2024, 7:55pm, 9:14pm). 2. KCl 20meq in 1000mL @ 100 mL/hr IV q1h x 2 doses (11/24/2024, 10:52pm; 11/25/2024, 8:56am). Acute hypokalemia RECURRED with K 3.3 mmol/L (11/26/2024, 6:59am). Patient subsequently received KCl 40meq PO x 1 dose (11/26/2024, 2:31pm). Patient remains asymptomatic with this mild degree of acute hypovolemic hyponatremia. Patient was subsequently discharged back to her home on 11/26/2024 and was advised to follow up with her PCP Dr. Ximena Lagos within 5-7 days of hospital discharge to undergo repeat K level testing. Patient reports that she will comply with this recommendation. (4) Hyponatremia: cf., Na 123 mmol/L (11/24/2024, 7:00pm). cf., Na 123 mmol/L (11/24/2024, 11:25pm). cf., Na 126 mmol/L (11/25/2024, 2:31am). cf., Na 127 mmol/L (11/25/2024, 2:31am). cf., Na 129 mmol/L (11/25/2024, 6:23am). cf., Na 129 mmol/L (11/25/2024, 9:33am). cf., Na 130 mmol/L (11/25/2024, 2:49pm). cf., Na 131 mmol/L (11/25/2024, 6:32pm). cf., Na 131 mmol/L (11/26/2024, 6:59am). cf., baseline Na range, 136-139 mmol/L (12/03/2021 - 09/21/2024). Etiology of acute hypovolemic hyponatremia is most likely due to chronic ETOH- mediated natri-uresis. Acute hypovolemic hyponatremia is RESOLVING well with patient OFF chronic ETOH imbibition and OFF IV fluid rehydration therapy. Patient remains asymptomatic with this mild degree of acute hypovolemic hyponatremia. Patient was subsequently discharged back to her home on 11/26/2024 and was advised to follow up with her PCP Dr. Ximena Lagos within 5-7 days of hospital discharge to undergo repeat Na level testing. Patient reports that she will comply with this recommendation. (5) Tobacco abuse: Smoking cessation counselling 16 minutes given. Patient agrees to quit smoking tobacco while in [facility]. Patient accepts offer of nicotine replacement utilizing nicotine patch 14mg TD qam (start date/time, 11/25/2024, 6:24am). Patient will not continue this medication on hospital discharge home on 11/26/2024, as patient reports, "I can quit smoking on my own." Plan The patient is a 69-year-old female with a past medical history including alcohol abuse/alcohol withdrawal seizures, hyponatremia, anxiety and depression, hypomagnesemia, and hypokalemia. She presents to the emergency department with concerns regarding her continued alcohol abuse, concerns regarding possible alcohol withdrawal as she stops drinking, which she reports she was today. She drinks an average of 6-8 beers a day, including today. She was admitted from 09/18-09/21/2024 for alcohol withdrawal and concerns regarding excessive alcohol use at that time as well. She does have a history of alcohol withdrawal seizures as noted, but has not had significant issues related to change in mental status, tremors, or seizure-like activity. She is referred to [facility] Hospitalist service for further evaluation and treatment. Alcohol abuse/alcohol intoxication- Most recent hospitalization for the same was on 09/18-09/21/2024. She did leave AMA on 09/21/2024 Patient reports that she continues to drink and averages 6-8 beers daily She would like to stop, but is concerned about the possibility of withdrawal Alcohol level 200.6 on admission Placed on AWSS protocol with IV Ativan Thiamine 100 mg p.o. every morning Folic acid 1 mg p.o. every morning Placed on NSS plus KCl 20 mEq at 100 mL/h x 2 L Zofran 4 mg IV every 6 hours as needed Admit to monitored bed Electrolyte disturbances: Hyponatremia, hypokalemia, and hypomagnesemia- Sodium 123, potassium 2.8, and magnesium 1.7 From the ED patient received the following: Magnesium sulfate 1 g IV, potassium chloride 10 mEq IV riders x 2 NSS + KCl 20 mill equivalents at 100 mL/h x 2 L Serial CBCD, CMP and magnesium levels every morning BMP every 6 hours x 24 hours UTI- Follow urine culture and sensitivity UTI from 09/20/2024 grew E. coli resistant to ampicillin, quinolones, gentamicin, intermediate to tobramycin Ceftriaxone 2 g IV every 24 hours Admission HPI Per Admitting Provider The patient is a 69-year-old female with a past medical history including alcohol abuse/alcohol withdrawal seizures, hyponatremia, anxiety and depression, hypomagnesemia, and hypokalemia. She presents to the emergency department with concerns regarding her continued alcohol abuse, concerns regarding possible alcohol withdrawal as she stops drinking, which she reports she was today. She drinks an average of 6-8 beers a day, including today. She was admitted from 09/18-09/21/2024 for alcohol withdrawal and concerns regarding excessive alcohol use at that time as well. She does have a history of alcohol withdrawal seizures as noted, but has not had significant issues related to change in mental status, tremors, or seizure-like activity. She is referred to [facility] Hospitalist service for further evaluation and treatment. Discharge Exam Constitutional General: Comfortable, cooperative, coherent. Wide awake and alert. Not confused, lethargic, or obtunded. Patient speaks in complete, fluent, and articulate sentences without pause, interruption, cough, or wheeze. HEENT: Normocephalic, atraumatic. Extra-ocular muscles intact. Pupils equally round and reactive to light. No nystagmus, gaze paresis, anisocoria, miosis, mydriasis, hyphema, chemosis, scleral injection, conjunctivitis, or pterygium. No otorrhea or rhinorrhea. No pharyngeal discharge or exudate. Neck: Supple, no stridor or bruit. Jugular venous pressure is estimated to be 3 cm above the sternal angle of Agustin, which is, by definition, 5 cm above the level of the right atrium. Hence, jugular venous pressure of 8 cm is not elevated on 11/26/2024. Lymphatics: No anterior/posterior cervical, infraclavicular, supraclavicular, axillary, epitrochlear, or inguinal adenopathy. Chest: Symmetric rise and fall with respirations. Non-tender to palpation. Lungs: Clear to auscultation and percussion. No audible expiratory wheeze, egophony, pectoriloquy, increase in tactile fremitus, or flatness/dullness to percussion at the bases. Heart: Regular rate and rhythm. S1 and S2 noted. No S3 or S4 summation gallop. No tripartite friction rub. Grade II/ early systolic murmur at left lower sternal border without radiation to the carotids, axilla, or back, and which remains invariant in regards to the respiratory cycle. Abdomen: Soft, non-tender, non-distended. No rebound, guarding, Jay's sign, or organomegaly. Bowel sounds auscultated in all 4 quadrants. Extremities: No clubbing, cyanosis, or edema. Skin: No decubitus ulcer, exanthem, or enanthem. Urology: No pizarro catheter. No purewick. No urethral discharge. Neurology: Alert and oriented in regards to person, place, time, and situation. 5/5 motor strength in all 4 extremities, proximally and distally. DTR+. No myoclonus, tremors, or tics. Psychiatry: No flat affect. No monotone voice. Smiles appropriately. Discharge Plan Discharge Items Patient Disposition: Home - Self-Care Reason For Visit: ALCOHOL INTOXICATION/ WITHDRAWAL Discharge Diagnosis: 1. Chronic ETOH abuse. 2. Acute ETOH intoxication RESOLVED. 3. No acute ETOH withdrawal. Condition on Discharge: Fair Activity: Per Instructions section Activity Comment: Stop drinking ETOH immediately and permanently. Don't drink and drive. Lifting: Gradually increase as tolerated Bathing: No limitations Weightbearing: Full weightbearing Non-emergency contact: Primary Care Provider Call non-emergency contact if: you have any medication questions Follow-up/Referrals: Ximena Lagos MD [Primary Care Provider] - Diet: Heart Healthy Addtl Attending Provider Instructions: See your PCP Dr. Ximena Lagos within 5-7 days of hospital discharge for repeat K, Mg, and PO4 level testing, as K, Mg, and PO4 levels can be low due to chronic ETOH abuse and/or acute UTI. Pending Studies at Discharge: Yes Studies:: See your PCP Dr. Ximena Lagos within 5-7 days of hospital discharge for repeat K, Mg, and PO4 level testing, as K, Mg, and PO4 levels can be low due to chronic ETOH abuse and/or acute UTI. Stand-Alone Forms: My [facility], Smoking Cessation Medications and DC Order Prescriptions: New thiamine HCl (vitamin B1) 100 mg Tablet 100 mg PO QAM Qty: 30 0RF folic acid 1 mg Tablet 1 mg PO QAM Qty: 30 0RF chlordiazepoxide HCl 25 mg capsule 25 mg PO Q4 Qty: 11 0RF Rx Instructions: Day #1: Chlordiazepoxide 25mg tablet PO q 4 x 4 doses. Day #2: Chlordiazepoxide 25mg tablet PO q 8 x 4 doses. Day #3: Chlordiazepoxide 25mg tablet PO q12 x 2 doses. Day #4: Chlordiazepoxide 25mg tablet PO qhs x 1 dose. Discharge Orders: Discharge Order (Routine); Ordered 11/26/24 Ordered By: Graeme Mcdonough Discharge Order- CHF (Routine); Ordered 11/26/24 Ordered By: Graeme Cantrell/Other Patient Handouts: Alcohol and Older Adults, Treating Drug Abuse an d Addiction, Prevention Guide Women 65 Plus Admission Data Admit Date/Time: 11/24/24 21:08 Attending Provider: Graeme Mcdonough Admancelmo Provider: Serge Maria Primary Care Provider: Ximena Lagos Other Providers: Serge Maria Other Interventions: Discharge Summary Assessment (RN) Last Done: 11/26/24 18:20 Hospital Stay Data Consultations 11/24/24 20:00 ED Decision to Admit Stat Pending Results Patient Have Any Pending Studies at Discharge: Yes Discharge Instructions Given to Patient (Per Discharging Provider) See your PCP Dr. Ximena Lagos within 5-7 days of hospital discharge for repeat K, Mg, and PO4 level testing, as K, Mg, and PO4 levels can be low due to chronic ETOH abuse and/or acute UTI. Total Time Total Time Spent Total Time Spent (In Minutes): 35 minutes. Of this time period, 19 minutes were spent in coordinating patient's discharge. Coding Level of Care Code 19346 INP/OBS DISCH >30 MIN Diagnoses Alcohol abuse F10.10 Alcoholic intoxication F10.929 Hypokalemia E87.6 Hyponatremia E87.1 Tobacco abuse Z72.0
[2024-11-27 03:34] VITALS: RESP 18; O2SAT 96
[2024-11-27 07:34] VITALS: BP 161/73; TEMP 97.9
[2024-11-27 08:33] VITALS: PULSE 77
--- NOTE | 2024-11-27 09:33 | Hospitalist Progress Note ---
Date of Service November 27, 2024 Assessment & Plan (1) Alcohol abuse: Plan: Chronic ETOH abuse since patient was 17 years old to the present day (11/24/2024). Patient concedes that she is an alcoholic and underwent voluntary detox from chronic ETOH abuse for 9 days in an inpatient ETOH detox program in 2022. Patient does not want to undergo inpatient ETOH detox at the present time. (2) Alcoholic intoxication: Plan: RESOLVED with no signs of acute ETOH intoxication and/or acute ETOH withdrawal on 11/25/2024 - 11/26/2024. cf., admitting serum ETOH level of 200.6 mg/dL (11/24/2024, 7:00pm). cf., discharge serum ETOH level < 10.0 mg/dL (11/26/2024, 10:22am). Patient underwent CIWA scale scoring, lorazepam 1mg IV UD prn CIWA score 6-7 points, lorazepam 2mg IV UD prn CIWA score 8-9 points, and lorazepam 3mg IV once prn CIWA score 10+ points while in [facility] Med-Surg bed #S236-1. Patient was subsequently discharged back to her home on 11/26/2024 with an electronic prescription for a chlordiazepoxide taper (see below) transmitted to her [id number] [address] [address]: Day #1: chlordiazepoxide 25mg tablet PO q 4 x 4 doses/tablets. Day #2: chlordiazepoxide 25mg tablet PO q 8 x 4 doses/tablets. Day #3: chlordiazepoxide 25mg tablet PO q12 x 2 doses/tablets. Day #4: chlordiazepoxide 25mg tablet PO qhs x 1 dose/tablet. Day #5: observe off chlordiazepoxide. (3) Hypokalemia: Plan: cf., K 2.8 mmol/L (11/24/2024, 7:00pm). cf., K 3.4 mmol/L (11/24/2024, 11:25pm). cf., K 3.5 mmol/L (11/25/2024, 2:31am). cf., K 3.6 mmol/L (11/25/2024, 2:31am). cf., K 3.9 mmol/L (11/25/2024, 6:23am). cf., K 4.1 mmol/L (11/25/2024, 9:33am). cf., K 3.3 mmol/L (11/26/2024, 6:59am). cf., baseline K range, 3.5-3.9 mmol/L (12/03/2021 - 09/21/2024). Etiology of acute hypokalemia was most likely due to chronic ETOH-mediated iris- uresis. Acute hypokalemia RESOLVED with patient OFF chronic ETOH imbibition and on: 1. KCl 10meq in 100mL @ 100 mL/hr IV q1h x 2 doses (11/24/2024, 7:55pm, 9:14pm). 2. KCl 20meq in 1000mL @ 100 mL/hr IV q1h x 2 doses (11/24/2024, 10:52pm; 11/25/2024, 8:56am). Acute hypokalemia RECURRED with K 3.3 mmol/L (11/26/2024, 6:59am). Patient subsequently received KCl 40meq PO x 1 dose (11/26/2024, 2:31pm). Patient remains asymptomatic with this mild degree of acute hypovolemic hyponatremia. Patient was subsequently discharged back to her home on 11/26/2024 and was advised to follow up with her PCP Dr. Ximena Lagos within 5-7 days of hospital discharge to undergo repeat K level testing. Patient reports that she will comply with this recommendation. (4) Hyponatremia: Plan: cf., Na 123 mmol/L (11/24/2024, 7:00pm). cf., Na 123 mmol/L (11/24/2024, 11:25pm). cf., Na 126 mmol/L (11/25/2024, 2:31am). cf., Na 127 mmol/L (11/25/2024, 2:31am). cf., Na 129 mmol/L (11/25/2024, 6:23am). cf., Na 129 mmol/L (11/25/2024, 9:33am). cf., Na 130 mmol/L (11/25/2024, 2:49pm). cf., Na 131 mmol/L (11/25/2024, 6:32pm). cf., Na 131 mmol/L (11/26/2024, 6:59am). cf., baseline Na range, 136-139 mmol/L (12/03/2021 - 09/21/2024). Etiology of acute hypovolemic hyponatremia is most likely due to chronic ETOH- mediated natri-uresis. Acute hypovolemic hyponatremia is RESOLVING well with patient OFF chronic ETOH imbibition and OFF IV fluid rehydration therapy. Patient remains asymptomatic with this mild degree of acute hypovolemic hyponatremia. Patient was subsequently discharged back to her home on 11/26/2024 and was advised to follow up with her PCP Dr. Ximena Lagos within 5-7 days of hospital discharge to undergo repeat Na level testing. Patient reports that she will comply with this recommendation. (5) Tobacco abuse: Plan: Smoking cessation counselling 16 minutes given. Patient agrees to quit smoking tobacco while in [facility]. Patient accepts offer of nicotine replacement utilizing nicotine patch 14mg TD qam (start date/time, 11/25/2024, 6:24am). Patient will not continue this medication on hospital discharge home on 11/26/2024, as patient reports, "I can quit smoking on my own." Plan The patient is a 69-year-old female with a past medical history including alcohol abuse/alcohol withdrawal seizures, hyponatremia, anxiety and depression, hypomagnesemia, and hypokalemia. She presents to the emergency department with concerns regarding her continued alcohol abuse, concerns regarding possible alcohol withdrawal as she stops drinking, which she reports she was today. She drinks an average of 6-8 beers a day, including today. She was admitted from 09/18-09/21/2024 for alcohol withdrawal and concerns regarding excessive alcohol use at that time as well. She does have a history of alcohol withdrawal seizures as noted, but has not had significant issues related to change in mental status, tremors, or seizure-like activity. She is referred to [facility] service for further evaluation and treatment. Alcohol abuse/alcohol intoxication- Most recent hospitalization for the same was on 09/18-09/21/2024. She did leave AMA on 09/21/2024 Patient reports that she continues to drink and averages 6-8 beers daily She would like to stop, but is concerned about the possibility of withdrawal Alcohol level 200.6 on admission Placed on AWSS protocol with IV Ativan Thiamine 100 mg p.o. every morning Folic acid 1 mg p.o. every morning Placed on NSS plus KCl 20 mEq at 100 mL/h x 2 L Zofran 4 mg IV every 6 hours as needed Admit to monitored bed Electrolyte disturbances: Hyponatremia, hypokalemia, and hypomagnesemia- Sodium 123, potassium 2.8, and magnesium 1.7 From the ED patient received the following: Magnesium sulfate 1 g IV, potassium chloride 10 mEq IV riders x 2 NSS + KCl 20 mill equivalents at 100 mL/h x 2 L Serial CBCD, CMP and magnesium levels every morning BMP every 6 hours x 24 hours UTI- Follow urine culture and sensitivity UTI from 09/20/2024 grew E. coli resistant to ampicillin, quinolones, gentamicin, intermediate to tobramycin Ceftriaxone 2 g IV every 24 hours Admission and Anticipated Discharge Date Admission Date: November 24, 2024 Subjective Pt seen resting in chair, awaiting for her father to pick her up and take her home this am. Review of Systems Review of Systems: CONST: Negative for fever, body aches and chills. HENT: Negative for neck pain/stiffness, headache, congestion, sore throat, swelling. EYES: Negative for discharge/pain or vision changes. RESP: Negative for cough/hemoptysis and shortness of breath. CV: Negative chest pain, difficulty breathing, palpitations. ABD: Negative pain, nausea, vomiting. : Negative increase frequency, dysuria, blood in urine or stool. MUSC: Negative for muscle aches, edema. SKIN: Negative rash, lesions/sores. NEURO: Negative headache, dizziness, weakness. Physical Exam Physical Exam: GENERAL APPEARANCE NAD, activity normal for age, well developed/ well nourished, no cyanosis, pallor, or diaphoresis. EYES lids/conjunctiva normal. EARS/NOSE/THROAT Mucous membranes moist, nares normal, lips/teeth normal uvula midline without oral pharyngeal erythema, exudate or swelling TMs normal bilaterally. No lymphangitis/lymphedema. HEAD/NECK normocephalic atraumatic, no facial trauma, neck is supple. RESPIRATORY respiratory effort normal, speaks in full sentences, no tripod position, no accessory muscle use. Lungs clear to auscultation without rhonchi, wheezes, rales CARDIAC Regular rate and rhythm, no edema. ABDOMINAL Soft, ND/NT. No evidence of fluid wave. No pulsatile masses on exam, rebound tenderness, Jay sign or pain over Mcburney's point. MUSCLES/EXTREMITIES No abnormal range of motion, no swelling. SKIN Warm, pink and dry. No rashes, dermatoses, petechiae or lesions. NEUROLOGICAL Speech is clear and appropriate. Normal level of consciousness. Gait and coordination are normal. 5/5 strength in all extremities. PSYCH Normal mood and affect. Judgement/competence is appropriate Results & Data Results & Data Vital Signs (Past 12 Hours) Vital Signs Temp Pulse Pulse Resp BP Pulse Ox Pulse Ox 11/27/24 08:00 77 11/27/24 07:38 36.6 C 92 H 18 161/73 H 96 11/27/24 07:00 36.6 C 92 H 18 161/73 H 96 11/27/24 03:33 36.5 C 88 18 156/88 H 96 11/26/24 22:19 79 11/26/24 22:00 100 O2 Del Method O2 Del Method 11/27/24 08:00 11/27/24 07:38 11/27/24 07:00 Room Air 11/27/24 03:33 Room Air 11/26/24 22:19 11/26/24 22:00 Room Air PG Care Time/CCT Total # of Minutes Spent Total Time Spent with Patient: Total time spent is greater than 50% in coordination of care (as documented) at patient's floor/unit and/or counseling patient: Coding Level of Care Code 26409 SUB INP/OBS CARE 2/35MIN Diagnoses Alcohol abuse F10.10 Alcoholic intoxication F10.929 Hypokalemia E87.6 Hyponatremia E87.1 Tobacco abuse Z72.0
--- NOTE | 2024-11-27 12:58 | Electrocardiogram Report ---
Test Reason : Blood Pressure : */* mmHG Vent. Rate : 88 BPM Atrial Rate : 88 BPM P-R Int : 130 ms QRS Dur : 86 ms QT Int : 382 ms P-R-T Axes : 77 47 61 degrees QTcB Int : 462 ms Normal sinus rhythm Normal ECG When compared with ECG of 18-Sep-2024 13:33, No significant change was found Confirmed by Carlos Eduardo Cox ([id number]) on 11/27/2024 12:58:22 PM Referred By: REFERRED SELF Confirmed By: Carlos Eduardo Cox
== END 2024-11-27 09:28 | disposition home or self-care (01) | DRG 897 ==
LOC: ED 18:25 → INTOOBSV 21:08 → 2S 21:08 → SUATTDRO 21:08 → 2S 21:38